=== PATIENT | female | born 1940 | race Caucasian/White ===

== ENCOUNTER 2017-08-24 14:24 | Observation (INO) ==
[2017-08-24] MEDS ORDERED: IPRATROPIUM/ALBUTEROL 3 ML AMPUL.NEB NEB ONE ×2 (14:48→18:52)
[2017-08-24 15:30] LABS: Basophils # (Auto) 0 K/mcL (0.0-0.3); Basophils % (Auto) 0.2 % (0.0-2.0); Eosinophils # (Auto) 0.3 K/mcL (0.0-0.7); Eosinophils % (Auto) 4.3 % (0.0-7.0); Lymphocytes # (Auto) 0.7 K/mcL (1.5-4.8); Lymphocytes % (Auto) 10.6 % (15.5-49.0); Mean Cell Volume 84.7 fL (80.0-100.0); Monocytes # (Auto) 0.6 K/mcL (0.1-0.9); Monocytes % (Auto) 8.9 % (1.0-12.0); Platelet Count 290 K/mcL (140-440); RBC 2.78 M/mcL (4.00-5.20); Red Cell Distribution Width 17.2 % (11.5-14.5)
[2017-08-24 15:54] LABS: proBNP 260.3 pg/ml (0-450)
[2017-08-24 15:56] LABS: ALT/SGPT 11 U/l (0-40); Albumin 3.7 gm/dL (3.2-5.2); Alkaline Phosphatase 140 U/L (39-117); Blood Urea Nitrogen 47 mg/dl (8-23)
--- NOTE | 2017-08-24 15:57 | Cat Scan Report ---
CLINICAL INFORMATION: Shortness of breath COMPARISON: Chest CT from over five years prior - 03/26/2012 TECHNIQUE: 0.625 mm axial slices were obtained from the lung apices through the bases without intravenous contrast. 2.5 mm Sagittal, coronal and axial reformatted images were processed and reviewed at bone, lung and soft tissue windows. 7 mm axial MIP images were also reconstructed to optimize pulmonary nodule detectionThe exam was performed using radiation dose optimization techniques including, but not limited to, automated exposure control, adjustment of the mA and/or kV according to patient size and use of iterative reconstruction technique. FINDINGS: Mediastinal windows show massive hiatal hernia consisting the entire stomach which has transgressed into the middle mediastinum and undergone organoaxial volvulus. There is compressive atelectasis of the adjacent medial basilar segment of the right lower lobe - new. The central pulmonary arteries are enlarged: main pulmonary diameter 3.5 centimeters. The thoracic aorta is normal in contour and caliber. There is no adenopathy in the mediastinal hilar or axillary regions. The heart is mildly enlarged pacemaker leads in satisfactory position. The thyroid is normal. Pulmonary parenchymal windows show mild chronic bronchitis changes with elevated lung volumes and slight dilatation/wall thickening the airways. Other than compressive atelectasis of the medial basilar segment right lower lobe related to the hiatal hernia, there are no infiltrates or other pulmonary abnormalities. No effusions. Bones and soft tissues the chest wall are normal Images through the abdomen show moderate pancreatic atrophy which has progressed IMPRESSION: 1. Moderate chronic bronchitis 2. Enlarged central pulmonary arteries suggesting pulmonary hypertension related to chronic bronchitis 3. Massive hiatal hernia consisting the entire stomach which is now the middle mediastinum. 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 4. Complete compressive atelectasis of the medial basilar segment right lower lobe due to the adjacent hernia 5. Moderate pancreatic atrophy - progressing Interpreted and Authenticated by: Jg Perry 08/24/17
[2017-08-24] MEDS ORDERED: 0.9 % SODIUM CHLORIDE 1,000 ML IV ONE (16:10)
[2017-08-24] MEDS ORDERED: cefTRIAXone 1 GM VIAL IV ONE (16:43)
[2017-08-24] MEDS ORDERED: methylPREDNISolone SOD SUCC 125 MG/2 ML VIAL IV ONE (16:43)
--- NOTE | 2017-08-24 17:21 | Emergency Department Note ---
General Adult HPI - General Chief complaint: Cold/Flu Symptoms Stated complaint: Flu like symptoms Time Seen by Provider: 08/24/17 14:55 Source: patient, family Mode of arrival: ambulatory Limitations: no limitations - History of Present Illness HPI Narrative: 77-year-old female cough and short of breath since 07/24/2017. 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 She initially got better and was well for about a week and now she is worse again. No nausea vomiting or diarrhea but certainly shortness of breath. She is now requiring oxygen here and she is not on home oxygen or nebulizers. She has chronic lymphedema as well as chronic kidney disease - Related Data Home Medications Medication Instructions Recorded Confirmed diltiazem CD 180 mg 180 mg PO Q24H 90 Days #90 cap 10/02/16 08/24/17 capsule,extended release 24 hr atorvastatin 10 mg tablet 10 mg PO QDAY 10/29/16 08/24/17 sennosides 8.6 mg tablet 8.6 mg PO QDAY 10/29/16 08/24/17 fluticasone 100 mcg-salmeterol 50 1 inh INHALATION BID 01/01/17 08/24/17 mcg/dose blistr powdr for inhalation torsemide 20 mg tablet See Label Instructions .ROUTE 02/19/17 08/24/17 .COMPLEX omeprazole 40 mg capsule,delayed 40 mg PO BID 30 Days #60 cap 05/03/17 08/24/17 release Acetaminophen [Acetaminophen Extra 500 mg PO HSP PRN 08/24/17 08/24/17 Strength] Previous Rx's Medication Instructions Recorded albuterol sulfate HFA 90 See Label Instructions .ROUTE 10/13/15 mcg/actuation aerosol inhaler .COMPLEX #8 g docusate sodium 100 mg capsule 100 mg PO BID #60 cap 10/02/16 ferrous sulfate ER 325 mg (65 mg 325 mg PO BID #60 cap 10/02/16 iron) capsule,extended release allopurinol 100 mg tablet 100 mg PO QDAY #90 tab 01/08/17 levothyroxine 150 mcg tablet 150 mcg PO QDAY 90 Days #90 tab 01/08/17 cyanocobalamin (vit B-12) 1,000 1,000 mcg IM QMONTH #12 ml 03/01/17 mcg/mL injection solution syringe with needle 3 mL 25 x 1 See Dose Instructions .ROUTE 03/01/17 1/2" .MEDSUPPLY #12 each Walker with Seat #1 each 06/17/17 warfarin 2.5 mg tablet 2.5 mg PO .COMPLEX #30 tab 06/19/17 warfarin 5 mg tablet 5 mg PO .COMPLEX #1 tab 07/15/17 metolazone 2.5 mg tablet 2.5 mg PO .QOD #30 tab 07/23/17 Allergies Allergy/AdvReac Type Severity Reaction Status Date / Time adhesive Allergy Unknown Blister Verified 08/24/17 13:17 Review of Systems All systems ED: reviewed and negative except as stated. Past Medical History - Past Medical History Attestation: Yes: The following information was validated with the patient. Medical history: Reports: arthritis, asthma, atrial fibrillation, CHF, COPD, CVA , DM, GERD, hypertension, osteoporosis, pulmonary embolus, renal disease, thyroid disease, other (Sleep apnea, pulmonary hypertension, gout, final stenosis) Surgical history ED: Reports: , hysterectomy, knee replacement, pacemaker/AICD - Social History smoking status: Never smoker Alcohol use: Reports: None Drug use: Reports: none Physical Exam With shortness of breath. Normocephalic atraumatic. Conjunctive are clear sclerae white and nonicteric. No nasal discharge but some audible congestion. Oropharynx is pink and moist. She is wearing nasal cannula oxygen. Neck is supple without lymphadenopathy or thyromegaly. Heart is regular rate and rhythm however she is difficult to auscultate secondary to body habitus. Lungs are basically clear to auscultation but she does have end expiratory wheeze and shortness of breath she is not speaking in full sentences. Requiring oxygen. Abdomen is soft nontender nondistended. Chronic lymphedema is present with +1- 2 bilaterally with some chronic venous stasis changes and erythema. +2 radial pulse. Alert oriented Limitations: no limitations Course Vital Signs Temperature 97.7 F 08/24/17 14:25 Pulse Rate 103 H 08/24/17 14:25 Respiratory Rate 18 08/24/17 14:25 Blood Pressure 172/64 08/24/17 14:25 Pulse Oximetry (%) 90 08/24/17 14:25 Temperature 97.4 F 08/25/17 06:52 Pulse Rate 75 08/25/17 07:54 Respiratory Rate 16 04/01/18 07:54 Blood Pressure 131/70 08/25/17 06:52 Pulse Oximetry (%) 95 08/25/17 07:54 Medical Decision Making - Medical Records Medical records reviewed: Yes I reviewed the patient's medical records. - Lab Data Lab results reviewed: Yes I reviewed the patient's lab results. Result diagrams: 08/25/17 04:17 08/25/17 04:17 Lab Results 08/24/17 08/24/17 08/24/17 Range/Units 15:00 15:00 15:00 WBC 6.2 (4.5-11.0) K/mcL RBC 2.78 L (4.00-5.20) M/mcL Hgb 7.8 L (12.0-15.0) g/dL Hct 23.5 L (36.0-48.0) % MCV 84.7 (80.0-100.0) fL MCH 28.0 (26.0-34.0) pg MCHC 33.0 (31.0-36.0) g/dL RDW 17.2 H (11.5-14.5) % Plt Count 290 (140-440) K/mcL MPV 7.1 L (7.4-10.4) fL Gran % 76.0 (38.0-78.0) % Lymph % (Auto) 10.6 L (15.5-49.0) % [place] % (Auto) 8.9 (1.0-12.0) % Eos % (Auto) 4.3 (0.0-7.0) % Baso % (Auto) 0.2 (0.0-2.0) % Gran # 4.7 (1.8-8.0) K/mcL Lymph # (Auto) 0.7 L (1.5-4.8) K/mcL [place] # (Auto) 0.6 (0.1-0.9) K/mcL Eos # (Auto) 0.3 (0.0-0.7) K/mcL Baso # (Auto) 0 (0.0-0.3) K/mcL PT (11.9-14.5) sec INR (0.9-1.1) Sodium 138 (133-145) mmol/L Potassium 3.1 L (3.3-5.1) mmol/L Chloride 92 L (96-108) mmol/L Carbon Dioxide 31 H (22-30) mmol/L Anion Gap 15.0 (8-16) BUN 47 H (8-23) mg/dl Creatinine 2.3 H (0.6-1.1) mg/dl GFR Calculation 20 Glucose 124 H (70-105) mg/dL Calcium 8.8 (8.6-10.4) mg/dl Total Bilirubin 0.2 (0.0-1.0) mg/dL AST 19 (0-37) U/l ALT 11 (0-40) U/l Alkaline Phosphatase 140 H (39-117) U/L NT-Pro-B Natriuret Pep 260.3 (0-450) pg/ml Total Protein 7.3 (5.9-8.4) gm/dL Albumin 3.7 (3.2-5.2) gm/dL Globulin 3.6 (2.2-3.7) gm/dL Albumin/Globulin Ratio 1.0 (1.0-2.3) Procalcitonin 0.11 (<0.10) ng/mL 08/24/17 Range/Units 15:00 WBC (4.5-11.0) K/mcL RBC (4.00-5.20) M/mcL Hgb (12.0-15.0) g/dL Hct (36.0-48.0) % MCV (80.0-100.0) fL MCH (26.0-34.0) pg MCHC (31.0-36.0) g/dL RDW (11.5-14.5) % Plt Count (140-440) K/mcL MPV (7.4-10.4) fL Gran % (38.0-78.0) % Lymph % (Auto) (15.5-49.0) % [place] % (Auto) (1.0-12.0) % Eos % (Auto) (0.0-7.0) % Baso % (Auto) (0.0-2.0) % Gran # (1.8-8.0) K/mcL Lymph # (Auto) (1.5-4.8) K/mcL [place] # (Auto) (0.1-0.9) K/mcL Eos # (Auto) (0.0-0.7) K/mcL Baso # (Auto) (0.0-0.3) K/mcL PT 21.2 H (11.9-14.5) sec INR 1.8 H (0.9-1.1) Sodium (133-145) mmol/L Potassium (3.3-5.1) mmol/L Chloride (96-108) mmol/L Carbon Dioxide (22-30) mmol/L Anion Gap (8-16) BUN (8-23) mg/dl Creatinine (0.6-1.1) mg/dl GFR Calculation Glucose (70-105) mg/dL Calcium (8.6-10.4) mg/dl Total Bilirubin (0.0-1.0) mg/dL AST (0-37) U/l ALT (0-40) U/l Alkaline Phosphatase (39-117) U/L NT-Pro-B Natriuret Pep (0-450) pg/ml Total Protein (5.9-8.4) gm/dL Albumin (3.2-5.2) gm/dL Globulin (2.2-3.7) gm/dL Albumin/Globulin Ratio (1.0-2.3) Procalcitonin (<0.10) ng/mL - Radiology Data Radiology results reviewed: Yes I reviewed the patient's radiology results. 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 unfortunately we could not get an ABG to evaluate her gas exchange although this was not for lack of trying by respiratory therapy. She was treated with Rocephin Solu-Medrol and DuoNeb with some modest relief of her symptoms. It is clear that she will need inpatient care for IV antibiotics steroids and [id number] breathing treatments for respiratory support along with oxygen Contacted Dr. Mak, the hospitalist, who agreed to accept patient for further care Disposition: Xfer As Inpt ([facility]) Condition: Fair
[2017-08-24] MEDS ORDERED: POTASSIUM CHLORIDE 20 MEQ TABLET PO ONE (18:42)
[2017-08-24] MEDS ORDERED: guaiFENesin/CODEINE 10 ML UDC PO PRN (18:42)
[2017-08-24] MEDS ORDERED: ALBUTEROL SULFATE 2.5 MG/3 ML NEBULIZER NEB PRN (19:00)
[2017-08-24] MEDS ORDERED: IPRATROPIUM/ALBUTEROL 3 ML AMPUL.NEB NEB SCH (19:00)
[2017-08-24] MEDS: IPRATROPIUM/ALBUTEROL 3 ML AMPUL.NEB NEB SCH (19:12)
[2017-08-24] MEDS ORDERED: ACETAMINOPHEN 500 MG TABLET PO PRN (19:41)
[2017-08-24] MEDS: PANTOPRAZOLE 40 MG VIAL IV SCH (19:41)
[2017-08-24] MEDS ORDERED: WARFARIN 2.5 MG TABLET PO SCH (19:45)
[2017-08-24] MEDS ORDERED: TORSEMIDE SCH (19:45)
[2017-08-24] MEDS ORDERED: DILTIAZEM 180 MG CAP.XL.24H PO SCH (19:45)
[2017-08-24] MEDS ORDERED: WARFARIN 5 MG TABLET PO SCH (19:45)
[2017-08-24] MEDS ORDERED: HEPARIN 5,000 UNIT/ML VIAL SQ SCH (21:00)
--- NOTE | 2017-08-24 21:05 | Internal Med History&Physical ---
Medical - H&P: [facility] Patient information: Note initiated : 08/24/17 at 8:53 pm Service Date, if different from initiated Date: [] Patient: Dania Em a 77 y/o F admitted on 08/24/17 for Flu like symptoms. History of present illness: Ms. Em is a 77 year old F, presented to the ED with SOB and URI symptoms for 2-3 weeks. She has recently finished a course with Levofloxacin and prednisone without much improvement in symptoms. She denies fever, chills, pleuritic pain. Patient has multiple medical problems, but has been doing fairly well up till recently. Her has been sick for last 6 weeks, was hospitalized at [facility] and is now at [facility]. There is no evidence of pneumonia. CT-chest showed 'massive hiatal hernia' and subsequent compressive atelectasis RLL and signs of chronic bronchitis. Patient was given Ceftriaxone and a Duoneb treatment. Oxygen sats was around 88 % and ED provider requested patient be admitted for further care. - Constitutional Constitutional: Present: fatigue. Absent: chills - Cardiovascular Cardiovascular: Present: dyspnea on exertion, leg edema, pedal edema. Absent: chest pain - Respiratory Respiratory: Present: cough, dyspnea on exertion, wheezing, chest congestion - Gastrointestinal Gastrointestinal: Present: heartburn - Genitourinary Genitourinary: Absent: urinary frequency, urinary urgency Medical - H&P: H Medical history: Medical History (Last Reviewed 07/02/17 @ 10:37 by Hilary Post MD) CVA (cerebral vascular accident) (Chronic) Spinal stenosis at L4-L5 level (Chronic) Acute bronchitis (Acute) Syncope (Acute) Bradycardia (Acute) Hyperuricemia (Acute) Shoulder pain (Acute) Long-term current use of steroids (Acute) Polymyalgia rheumatica syndrome (Ruled-out) 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) Venous stasis (Chronic) Obstructive sleep apnea syndrome (Chronic) Secondary hyperparathyroidism of renal origin (Chronic) Hypertensive renal disease (Chronic) Chronic kidney disease, stage IV (severe) (Chronic) Vitreous degeneration (Chronic) Vitamin D deficiency (Chronic) Sleep apnea (Chronic) Restless leg syndrome (Chronic) Pulmonary hypertension (Chronic) Pulmonary embolism (Chronic) Prediabetes (Chronic) Osteopenia (Chronic) Osteoarthritis (Chronic) Nuclear sclerosis (Chronic) Morbid obesity (Chronic) Hypothyroidism (Chronic) Hypertension, essential (Chronic) Hyperparathyroidism, secondary renal (Chronic) Hyperkalemia (Chronic) Gout (Chronic) Gastroesophageal reflux (Chronic) Edema (Chronic) Diastolic dysfunction (Chronic) COPD (chronic obstructive pulmonary disease) (Chronic) Kidney disease, chronic, stage III (moderate, EGFR 30-59 ml/min) (Chronic) Asthma (Chronic) Anemia (Chronic) Cellulitis (Ruled-out) Blepharitis (Inactive) Cellulitis of left arm (Inactive) Deep vein thrombosis (Inactive) skilled nursing current use of anticoagulant (Inactive) Thrombosis (Inactive) Visual disturbances (Inactive) Surgical history: Past Surgical History (Last Updated 08/07/17 @ 08:33 by Daniela Rubin) Status post total abdominal hysterectomy and bilateral salpingo-oophorectomy ( NATHANAEL-BSO) (Chronic) History of esophagogastroduodenoscopy (EGD) (Chronic 08/06/17) History of section (Inactive) History of dilation and curettage (Inactive) History of esophagogastroduodenoscopy (Inactive) History of knee replacement (Inactive) Hx of colonoscopy (Inactive) Social history: Lives with Functional capacity: independent ambulation Smoking status: Never smoker Drug use: none Alcohol use: none Medical - H&P: Meds Home Medications Medication Instructions Recorded Confirmed Type albuterol sulfate HFA 90 See Label Instructions .ROUTE 10/13/15 08/24/17 Rx mcg/actuation aerosol inhaler .COMPLEX #8 g diltiazem CD 180 mg 180 mg PO Q24H 90 Days #90 cap 10/02/16 08/24/17 History capsule,extended release 24 hr docusate sodium 100 mg capsule 100 mg PO BID #60 cap 10/02/16 08/24/17 Rx ferrous sulfate ER 325 mg (65 mg 325 mg PO BID #60 cap 10/02/16 08/24/17 Rx iron) capsule,extended release atorvastatin 10 mg tablet 10 mg PO QDAY 10/29/16 08/24/17 History sennosides 8.6 mg tablet 8.6 mg PO QDAY 10/29/16 08/24/17 History fluticasone 100 mcg-salmeterol 50 1 inh INHALATION BID 01/01/17 08/24/17 History mcg/dose blistr powdr for inhalation allopurinol 100 mg tablet 100 mg PO QDAY #90 tab 01/08/17 08/24/17 Rx levothyroxine 150 mcg tablet 150 mcg PO QDAY 90 Days #90 tab 01/08/17 08/24/17 Rx torsemide 20 mg tablet See Label Instructions .ROUTE 02/19/17 08/24/17 History .COMPLEX cyanocobalamin (vit B-12) 1,000 1,000 mcg IM QMONTH #12 ml 03/01/17 08/24/17 Rx mcg/mL injection solution syringe with needle 3 mL 25 x 1 See Dose Instructions .ROUTE 03/01/17 08/24/17 Rx 1/2" .MEDSUPPLY #12 each omeprazole 40 mg capsule,delayed 40 mg PO BID 30 Days #60 cap 05/03/17 08/24/17 History release Walker with Seat #1 each 06/17/17 08/24/17 Rx warfarin 2.5 mg tablet 2.5 mg PO .COMPLEX #30 tab 06/19/17 08/24/17 Rx warfarin 5 mg tablet 5 mg PO .COMPLEX #1 tab 07/15/17 08/24/17 Rx metolazone 2.5 mg tablet 2.5 mg PO .QOD #30 tab 07/23/17 08/24/17 Rx Acetaminophen [Acetaminophen Extra 500 mg PO HSP PRN 08/24/17 08/24/17 History Strength] Allergies Allergy/AdvReac Type Severity Reaction Status Date / Time adhesive Allergy Unknown Blister Verified 08/24/17 13:17 Medical - H&P: Exam - Constitutional Vitals: Temp Pulse Resp BP Pulse Ox 97.7 F 90 24 H 137/56 93 08/24/17 18:52 08/24/17 19:10 08/24/17 19:10 08/24/17 18:52 08/24/17 18:52 General appearance: mild distress, morbidly obese - Head Head exam: Present: normal inspection - Respiratory Respiratory exam: Present: prolonged expiratory phase, wheezes - Cardiovascular Cardiovascular exam: Present: normal rate and rhythm - GI/Abdominal GI/Abdominal exam: Present: normal bowel sounds, soft - Extremities Exam Extremities exam: Present: pedal edema Medical - H&P: Reslt - Labs CBC & Chem 7: 08/24/17 15:00 08/24/17 15:00 Labs: Short CBC 08/24/17 Range/Units 15:00 WBC 6.2 (4.5-11.0) K/mcL Hgb 7.8 L (12.0-15.0) g/dL Hct 23.5 L (36.0-48.0) % Plt Count 290 (140-440) K/mcL BMP 08/24/17 15:00 Sodium 138 Potassium 3.1 L Chloride 92 L Carbon Dioxide 31 H BUN 47 H Creatinine 2.3 H Glucose 124 H Calcium 8.8 Liver Function 08/24/17 Range/Units 15:00 Total Bilirubin 0.2 (0.0-1.0) mg/dL AST 19 (0-37) U/l ALT 11 (0-40) U/l Alkaline Phosphatase 140 H (39-117) U/L Albumin 3.7 (3.2-5.2) gm/dL Medical - H&P: A/P - Narrative A/P Narrative: 77-year-old female presented with the following problems: ACUTE: - Exacerbation of chronic bronchitis S/P course with levofloxacin and steroid taper as outpatient Patient has chronic changes on CT-chest At risk for gram neg infection, Pseudomonas aer etc. Will obtain Sputum gram stain Continue Ceftriaxone for now. Has mild wheezing and SOB. Was given IV steroids in ED. No indication to continue systemic steroids. Continue inhaled treatments. - RLL compressive atelectasis due to massive hiatal hernia. Incentive spirometry Respiratory toilet - Hypoxia Mild 88%, due to above - Hypokalemia Replace K. Monitor closely - Anemia of chronic disease Hb 7.8 Has CKD and is on coumadin. Will check stools for heme. Iron level pending CHRONIC: - Massive hiatal hernia. Has GERD and likely silent aspiration Protonix IV - Morbid Obesity - BRENNA Doesn't tolerate CPAP due to anxiety - History of thromboembolic disease, on coumadin - Chronic kidney disease On diuretics. Continue home meds for chronic condition. -
[2017-08-24] MEDS: 0.9 % SODIUM CHLORIDE 10 ML SYRINGE IV SCH (21:49)
[2017-08-24] MEDS: DOCUSATE SODIUM 100 MG CAPSULE PO SCH (21:49)
[2017-08-24] MEDS: FLUTICASONE/SALMETEROL 50/100 INHALER #14 INH SCH (21:50)
[2017-08-25] MEDS: IPRATROPIUM/ALBUTEROL 3 ML AMPUL.NEB NEB SCH ×2 (00:45→07:52)
[2017-08-25] MEDS: 0.9 % SODIUM CHLORIDE 10 ML SYRINGE IV SCH (04:39)
[2017-08-25 05:49] LABS: Basophils # (Auto) 0 K/mcL (0.0-0.3); Basophils % (Auto) 0 % (0.0-2.0); Eosinophils # (Auto) 0.1 K/mcL (0.0-0.7); Eosinophils % (Auto) 1.2 % (0.0-7.0); Granulocytes % (Auto) 93.8 % (38.0-78.0); Lymphocytes # (Auto) 0.3 K/mcL (1.5-4.8); Lymphocytes % (Auto) 4.6 % (15.5-49.0); Mean Cell Volume 83.9 fL (80.0-100.0); Mean Corpuscular HGB Conc 33.1 g/dL (31.0-36.0); Mean Corpuscular Hemoglobin 27.8 pg (26.0-34.0); Monocytes # (Auto) 0 K/mcL (0.1-0.9); Monocytes % (Auto) 0.4 % (1.0-12.0); Platelet Count 303 K/mcL (140-440); RBC 2.87 M/mcL (4.00-5.20); Red Cell Distribution Width 16.9 % (11.5-14.5)
[2017-08-25 06:11] LABS: ALT/SGPT 11 U/l (0-40); Albumin 3.6 gm/dL (3.2-5.2); Albumin/Globulin Ratio 0.9 (1.0-2.3); Alkaline Phosphatase 137 U/L (39-117); Bilirubin,Direct < 0.2 mg/dL (0.0-0.3); Blood Urea Nitrogen 44 mg/dl (8-23); Gamma Glutamyl Transpeptidase 51 U/L (5-36); Iron 16 mcg/dl (37-145); Transferrin % Saturation 5 % (15-50); Unsaturated Iron Binding 284 mcg/dL (112-346); Uric Acid 11.3 mg/dL (2.5-8.0)
[2017-08-25 06:13] LABS: Estimated Average Glucose(eAG) 114 mg/dL; Hemoglobin A1C 5.6 % HGB (4.0-6.0)
[2017-08-25] MEDS ORDERED: IRON SUCROSE COMPLEX 100 MG/5 ML VIAL IV ONE (07:29)
[2017-08-25] MEDS ORDERED: LEVOTHYROXINE 150 MCG TABLET PO SCH (07:30)
[2017-08-25] MEDS ORDERED: FERROUS SULFATE 325 MG TABLET PO SCH (08:00)
[2017-08-25] MEDS: FLUTICASONE/SALMETEROL 50/100 INHALER #14 INH SCH (08:28)
[2017-08-25] MEDS: PANTOPRAZOLE 40 MG VIAL IV SCH (08:37)
[2017-08-25] MEDS: DOCUSATE SODIUM 100 MG CAPSULE PO SCH (08:37)
[2017-08-25] MEDS ORDERED: SENNOSIDES 1 TABLET PO SCH (09:00)
[2017-08-25] MEDS ORDERED: ALLOPURINOL 100 MG TABLET PO SCH (09:00)
[2017-08-25] MEDS ORDERED: POTASSIUM CHLORIDE 20 MEQ TABLET PO ONE (09:00)
--- NOTE | 2017-08-25 12:54 | Discharge Summary ---
Medical - DS: Prov Patient information: Note initiated : 08/25/17 at 12:52 pm Service Date, if different from initiated Date: [] Patient: Dania Em 77 y/o F admitted on 08/24/17 for hypoxia and URI symptoms Date of admission: 08/24/17 18:35 Discharge date: 08/25/17 Primary care physician: Jg Zacarias Medical - DS: Meds - Discharge Medications Prescriptions: Ipratropium/Albuterol [Duoneb] 3 ml NEB Q4HP PRN #90 ampul.neb PRN Reason: Bronchospasm Potassium Chloride [Klor-Con Sprinkle] 10 meq PO DAILY #90 capsule.er Active and Home Medications: Home Medications albuterol sulfate HFA 90 mcg/actuation aerosol inhaler See Label Instructions .ROUTE .COMPLEX #8 g 10/13/15 [Rx Confirmed 08/24/17 Last Taken 08/24/17 09:00] diltiazem CD 180 mg capsule,extended release 24 hr 180 mg PO Q24H 90 Days #90 cap 10/02/16 [History Confirmed 08/24/17 Last Taken 08/24/17 09:00] docusate sodium 100 mg capsule 100 mg PO BID #60 cap 10/02/16 [Rx Confirmed Last Taken 08/24/17 09:00] ferrous sulfate ER 325 mg (65 mg iron) capsule,extended release 325 mg PO BID # 60 cap 10/02/16 [Rx Confirmed 08/24/17 Last Taken 08/23/17 21:00] atorvastatin 10 mg tablet 10 mg PO QDAY 10/29/16 [History Confirmed 08/24/17 Last Taken 08/23/17 21:00] sennosides 8.6 mg tablet 8.6 mg PO QDAY 10/29/16 [History Confirmed 08/24/17 Last Taken 08/23/17 21:00] fluticasone 100 mcg-salmeterol 50 mcg/dose blistr powdr for inhalation 1 inh INHALATION BID 01/01/17 [History Confirmed 08/24/17 Last Taken 08/24/17 09:00] allopurinol 100 mg tablet 100 mg PO QDAY #90 tab 01/08/17 [Rx Confirmed Last Taken 08/23/17 21:00] levothyroxine 150 mcg tablet 150 mcg PO QDAY 90 Days #90 tab 01/08/17 [Rx Confirmed 08/24/17 Last Taken 08/24/17 09:00] torsemide 20 mg tablet See Label Instructions .ROUTE .COMPLEX 02/19/17 [History Confirmed 08/24/17 Last Taken 08/24/17 09:00] cyanocobalamin (vit B-12) 1,000 mcg/mL injection solution 1,000 mcg IM QMONTH # 12 ml 03/01/17 [Rx Confirmed 08/24/17 Last Taken 07/25/17 18:00] syringe with needle 3 mL 25 x 1 1/2" See Dose Instructions .ROUTE .MEDSUPPLY # 12 each 03/01/17 [Rx Confirmed 08/24/17 Last Taken 07/25/17 18:00] omeprazole 40 mg capsule,delayed release 40 mg PO BID 30 Days #60 cap 05/03/17 [ History Confirmed 08/24/17 Last Taken 08/24/17 06:00] Walker with Seat #1 each 06/17/17 [Rx Confirmed 08/24/17 Last Taken 08/24/17 18: 59] warfarin 2.5 mg tablet 2.5 mg PO .COMPLEX #30 tab 06/19/17 [Rx Confirmed Last Taken 08/24/17 09:00] warfarin 5 mg tablet 5 mg PO .COMPLEX #1 tab 07/15/17 [Rx Confirmed 08/24/17 Last Taken 08/22/17 09:00] metolazone 2.5 mg tablet 2.5 mg PO .QOD #30 tab 07/23/17 [Rx Confirmed 08/24/17 Last Taken 08/24/17 09:00] Acetaminophen [Acetaminophen Extra Strength] 500 mg PO HSP PRN 08/24/17 [ History Confirmed 08/24/17 Last Taken 08/23/17 21:00 500] Medical - DS: Hosp Hospital course: History of present illness: Ms. Em is a 77 year old F, presented to the ED with SOB and URI symptoms for 2-3 weeks. She has recently finished a course with Levofloxacin and prednisone without much improvement in symptoms. She denies fever, chills, pleuritic pain. Patient has multiple medical problems, but has been doing fairly well up till recently. Her has been sick for last 6 weeks, was hospitalized at [facility] and is now at [facility]. There is no evidence of pneumonia. CT-chest showed 'massive hiatal hernia' and subsequent compressive atelectasis RLL and signs of chronic bronchitis. Patient was given Ceftriaxone and a Duoneb treatment. Oxygen sats was around 88 % and ED provider requested patient be admitted for further care. Hospital course: Admitted for exacerbation of chronic bronchitis a/w mild hypoxia. Patient was started on Ceftriaxone IX and nebulized treatments. She was also encouraged to do incentive spirometry for the RLL atelectasis due to compression secondary due to massive hiatal hernia. This am labs showed K of 3.4 and she was given K supplementation. Fe level was 16 with Hb 8.0. She received a dose of Fe sucrose IV, which was well tolerated. This morning O2 sats on RA was well above 90%. Although still coughing, she was feeling well enough to go home. She will be discharged home with same home meds. Added: nebulizer and Duonebs to take prn if inhalers are inadequate, and also K 10 meq daily for hypokalemia. Discharge diagnosis: Exacerbation of chronic bronchitis, hypoxia Secondary discharge diagnosis: Chronic bronchitis Chronic compressive atelectasis of RLL due to massive hiatal hernia Fe-iron deficiency anemia Chronic renal disease Morbid obesity BRENNA Reason for admission: SOB Complications: None - Time Spent with Patient Total time spent providing and/or coordinating discharge services: Less than 30 minutes Medical - DS: Exam - Constitutional Vitals: Vital Signs Temp Pulse Pulse Resp BP BP BP 08/25/17 12:00 98.1 F 72 20 145/70 08/25/17 07:54 75 16 08/25/17 07:31 08/25/17 06:52 97.4 F 83 24 H 131/70 08/25/17 05:48 08/25/17 04:00 97.8 F 88 20 115/62 08/25/17 00:00 98.1 F 88 20 128/54 08/24/17 23:04 16 08/24/17 20:00 98.4 F 87 22 137/66 08/24/17 19:10 90 24 H 08/24/17 18:52 97.7 F 92 H 22 137/56 08/24/17 18:35 98.4 F 87 22 137/66 08/24/17 18:16 92 H 22 137/56 08/24/17 18:00 90 15 142/116 08/24/17 17:46 104 H 17 141/119 08/24/17 17:31 89 23 H 158/54 08/24/17 17:17 91 H 19 140/44 08/24/17 17:02 93 H 21 140/61 08/24/17 16:47 94 H 21 140/60 08/24/17 16:32 97 H 15 153/44 08/24/17 16:17 95 H 21 131/97 08/24/17 16:02 91 H 19 162/53 08/24/17 15:58 105 H 22 138/101 08/24/17 15:02 89 141/40 08/24/17 14:54 90 20 08/24/17 14:47 99 H 146/65 08/24/17 14:44 89 161/62 08/24/17 14:25 97.7 F 103 H 18 172/64 Pulse Ox 08/25/17 12:00 94 08/25/17 07:54 95 08/25/17 07:31 93 08/25/17 06:52 93 08/25/17 05:48 93 08/25/17 04:00 95 08/25/17 00:00 93 08/24/17 23:04 93 08/24/17 20:00 91 08/24/17 19:10 08/24/17 18:52 93 08/24/17 18:35 91 08/24/17 18:16 93 08/24/17 18:00 94 08/24/17 17:46 93 08/24/17 17:31 92 08/24/17 17:17 92 08/24/17 17:02 93 08/24/17 16:47 88 L 08/24/17 16:32 90 08/24/17 16:17 95 08/24/17 16:02 95 08/24/17 15:58 93 08/24/17 15:02 100 08/24/17 14:54 08/24/17 14:47 96 08/24/17 14:44 98 08/24/17 14:25 90 Intake and Output 08/24/17 08/25/17 08/25/17 21:59 05:59 13:59 Intake Total 1240 / 1240 600 / 600 Output Total 350 / 350 Balance 890 / 890 600 / 600 Intake: IV 1000 / 1000 Sodium Chloride 0.9% 1,000 ml @ 1000 / 1000 Wide Open IV BOLUS ONE Rx#: [id number] Oral 240 / 240 600 / 600 Output: Void Amount 350 / 350 Other: Meal chicken noodle soup and jello Percent of Meal Consumed 100% Feeding Ability Independent # Voids 1 1 1 Weight 263 lb General appearance: morbidly obese Additional comments: Dyspnea on exertion - Respiratory Respiratory exam: Present: wheezes - Cardiovascular Cardiovascular exam: Present: normal rate and rhythm - GI/Abdominal GI/Abdominal exam: Present: normal bowel sounds - Extremities Exam Extremities exam: Present: pedal edema Medical - DS: Data Labs on day of discharge: Labs from last 24 hours 08/25/17 08/25/17 08/25/17 07:41 04:17 04:17 WBC 5.9 RBC 2.87 L Hgb 8.0 L Hct 24.1 L MCV 83.9 MCH 27.8 MCHC 33.1 RDW 16.9 H Plt Count 303 MPV 7.9 Gran % 93.8 H Lymph % (Auto) 4.6 L [place] % (Auto) 0.4 L Eos % (Auto) 1.2 Baso % (Auto) 0 Gran # 5.5 Lymph # (Auto) 0.3 L [place] # (Auto) 0 L Eos # (Auto) 0.1 Baso # (Auto) 0 PT 21.6 H INR 1.9 H Sodium 138 Potassium 3.5 Chloride 93 L Carbon Dioxide 29 Anion Gap 16.0 BUN 44 H Creatinine 2.1 H GFR Calculation 22 Glucose 218 H Hemoglobin A1c 5.6 Estim Average Glucose 114 Uric Acid 11.3 H Calcium 8.7 Phosphorus 3.4 Magnesium 1.5 L Iron 16 L TIBC 300 Unsat Iron Binding 284 Transferrin % Sat 5 L Total Bilirubin 0.2 Direct Bilirubin < 0.2 GGT 51 H AST 18 ALT 11 Alkaline Phosphatase 137 H Lactate Dehydrogenase 253 H NT-Pro-B Natriuret Pep Total Protein 7.5 Albumin 3.6 Globulin 3.9 H Albumin/Globulin Ratio 0.9 L Triglycerides 96 Procalcitonin 08/24/17 08/24/17 08/24/17 15:00 15:00 15:00 WBC 6.2 RBC 2.78 L Hgb 7.8 L Hct 23.5 L MCV 84.7 MCH 28.0 MCHC 33.0 RDW 17.2 H Plt Count 290 MPV 7.1 L Gran % 76.0 Lymph % (Auto) 10.6 L [place] % (Auto) 8.9 Eos % (Auto) 4.3 Baso % (Auto) 0.2 Gran # 4.7 Lymph # (Auto) 0.7 L [place] # (Auto) 0.6 Eos # (Auto) 0.3 Baso # (Auto) 0 PT 21.2 H INR 1.8 H Sodium 138 Potassium 3.1 L Chloride 92 L Carbon Dioxide 31 H Anion Gap 15.0 BUN 47 H Creatinine 2.3 H GFR Calculation 20 Glucose 124 H Hemoglobin A1c Estim Average Glucose Uric Acid Calcium 8.8 Phosphorus Magnesium Iron TIBC Unsat Iron Binding Transferrin % Sat Total Bilirubin 0.2 Direct Bilirubin GGT AST 19 ALT 11 Alkaline Phosphatase 140 H Lactate Dehydrogenase NT-Pro-B Natriuret Pep 260.3 Total Protein 7.3 Albumin 3.7 Globulin 3.6 Albumin/Globulin Ratio 1.0 Triglycerides Procalcitonin 08/24/17 15:00 WBC RBC Hgb Hct MCV MCH MCHC RDW Plt Count MPV Gran % Lymph % (Auto) [place] % (Auto) Eos % (Auto) Baso % (Auto) Gran # Lymph # (Auto) [place] # (Auto) Eos # (Auto) Baso # (Auto) PT INR Sodium Potassium Chloride Carbon Dioxide Anion Gap BUN Creatinine GFR Calculation Glucose Hemoglobin A1c Estim Average Glucose Uric Acid Calcium Phosphorus Magnesium Iron TIBC Unsat Iron Binding Transferrin % Sat Total Bilirubin Direct Bilirubin GGT AST ALT Alkaline Phosphatase Lactate Dehydrogenase NT-Pro-B Natriuret Pep Total Protein Albumin Globulin Albumin/Globulin Ratio Triglycerides Procalcitonin 0.11 CT-CHEST WO CONTRAST: IMPRESSION: 1. Moderate chronic bronchitis 2. Enlarged central pulmonary arteries suggesting pulmonary hypertension related to chronic bronchitis 3. Massive hiatal hernia consisting the entire stomach which is now the middle mediastinum. 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 4. Complete compressive atelectasis of the medial basilar segment right lower lobe due to the adjacent hernia 5. Moderate pancreatic atrophy - progressing Medical - DS: A/P - Patient/Caregiver Discharge Instructions Activity: increase activity as tolerated Diet: Cardiac Additional Instructions: Incentive spirometry 3-4 times daily for RLL collapse Take Duoneb via nebulizer if inhalers are infective, or with worsening SOB Recheck renal function in about one week for hypokalemia - Follow up Plan Follow up with: Jg Zacarias DO [Primary Care Provider] - Disposition: Home, Self-Care Prognosis: Fair Rehab Potential: Fair Overall status at discharge: patient is progressing back to baseline Medical - DS: Qual - VTE Deep Vein Thrombosis/Pulmonary Embolism Present on Admission: No
[2017-08-25] MEDS ORDERED: WARFARIN 5 MG TABLET PO ONE (14:00)
[2017-08-25] MEDS ORDERED: ATORVASTATIN 20 MG TABLET PO SCH (21:00)
[2017-08-26] MEDS ORDERED: METOLAZONE 2.5 MG TABLET PO SCH (08:30)
== END 2017-08-25 14:00 | disposition home or self-care (01) ==
LOC: ED 14:24 → MEDSUR 14:24
PROVIDERS: ADMIT Specialist; ATTEND Specialist

== ENCOUNTER 2018-05-29 18:11 | Inpatient (IN) ==
[2018-05-29] MEDS ORDERED: LACTATED RINGERS 1,000 ML IV ONE (18:21)
[2018-05-29] MEDS ORDERED: IPRATROPIUM/ALBUTEROL 3 ML AMPUL.NEB NEB ONE ×2 (18:38→23:19)
[2018-05-29] MEDS ORDERED: methylPREDNISolone SOD SUCC 125 MG/2 ML VIAL IV ONE (18:39)
[2018-05-29] MEDS ORDERED: OSELTAMIVIR PHOSPHATE 75 MG CAPSULE PO ONE (18:39)
--- NOTE | 2018-05-29 18:42 | Emergency Department Note ---
SOB HPI - General Chief Complaint: Shortness of Breath/Dyspnea Stated Complaint: sob, cough, weakness, fever Time Seen by Provider: 05/29/18 18:38 Source: patient Mode of arrival: ambulatory Limitations: no limitations - History of Present Illness History of chronic cough, history of asthmatic bronchitis, reactive airway disease however yesterday started acutely with a cough that was different. It turns out her daughter has had flulike symptoms since New Year's Phyllis. Daughter also currently sick with a cough. She tested positive for influenza a on arrival to the ED. EMS was called, she was weak, hypoxic, oximetry 88% on room air. Denies abdominal pain, denies nausea vomiting or diarrhea. - Related Data Home Medications Medication Instructions Recorded Confirmed sennosides 8.6 mg tablet 8.6 mg PO QDAY 10/29/16 03/27/18 omeprazole 40 mg capsule,delayed 40 mg PO BID 30 Days #60 cap 05/03/17 03/27/18 release Acetaminophen [Acetaminophen Extra 500 mg PO HSP PRN 08/24/17 03/27/18 Strength] fluticasone 110 mcg/actuation HFA 2 puff INHALATION BID 09/03/17 03/27/18 aerosol inhaler diltiazem CD 180 mg 90 mg PO Q24H 90 Days #45 cap 02/28/18 03/27/18 capsule,extended release 24 hr darbepoetin fatou 100 mcg/mL in 100 mcg SUB-Q Q2W PRN ml 05/05/18 05/05/18 polysorbate injection Previous Rx's Medication Instructions Recorded albuterol sulfate HFA 90 See Label Instructions .ROUTE 10/13/15 mcg/actuation aerosol inhaler .COMPLEX #8 g docusate sodium 100 mg capsule 100 mg PO BID #60 cap 10/02/16 Walker with Seat #1 each 06/17/17 warfarin 2.5 mg tablet 2.5 mg PO .COMPLEX #30 tab 06/19/17 Atorvastatin [Lipitor] 10 mg PO HS tab 08/25/17 Ferrous Sulfate 325 mg PO BIDCC tab 08/25/17 Ipratropium/Albuterol [Duoneb] 3 ml NEB Q4HP PRN #90 ampul.neb 08/25/17 Potassium Chloride [Klor-Con 10 meq PO DAILY #90 capsule.er 08/25/17 Sprinkle] gabapentin 100 mg capsule 100 mg PO QHS #30 cap 09/30/17 warfarin 5 mg tablet 5 mg PO QDAY #30 tab 12/16/17 levothyroxine 150 mcg tablet 150 mcg PO QDAY 90 Days #90 tab 12/30/17 cyanocobalamin (vit B-12) 1,000 1,000 mcg IM QMONTH #12 ml 02/25/18 mcg/mL injection solution syringe with needle 3 mL 25 x 1 See Dose Instructions .ROUTE 02/25/18 1/2" .MEDSUPPLY #12 each hydrocodone 5 mg-acetaminophen 325 1 tab PO Q6H PRN #90 tab 03/27/18 mg tablet allopurinol 100 mg tablet 100 mg PO QDAY #90 tab 04/01/18 torsemide 20 mg tablet 40 mg PO BID 90 Days #360 tab 04/14/18 metolazone 2.5 mg tablet 2.5 mg PO .QOD #30 tab 05/19/18 iron sucrose 200 mg iron/10 mL 200 mg IV QWEEK #50 ml 05/29/18 intravenous solution Allergies Allergy/AdvReac Type Severity Reaction Status Date / Time adhesive Allergy Unknown Blister Verified 03/27/18 09:55 Review of Systems Constitutional: Reports: fever, chills ENT ED: Denies: ear pain, throat pain Cardiovascular: Reports: palpitations, dyspnea on exertion, orthopnea. Denies: chest pain Respiratory: Reports: shortness of breath, cough, wheezes, phlegm Gastrointestinal: Denies: abdominal pain, nausea Genitourinary: Denies: dysuria, urgency Past Medical History - Past Medical History Source: old records reviewed, nursing notes reviewed Medical history: Reports: arthritis, asthma, atrial fibrillation, CHF, COPD, CVA , DM, GERD, hypertension, osteoporosis, pulmonary embolus, renal disease, thyroid disease, other (Sleep apnea, pulmonary hypertension, gout, final stenosis) Surgical history ED: Reports: , hysterectomy, knee replacement, pacemaker/AICD Family history: Reports: no significant family history - Social History smoking status: Never smoker Exposure to secondhand smoke: Yes Alcohol use: Reports: None Drug use: Reports: none Physical Exam Limitations: no limitations General appearance: alert, in distress Head: atraumatic, normocephalic, normal inspection Eye: Present: normal appearance, PERRL, EOMI. Absent: scleral icterus, conjunctival injection, nystagmus, miosis (constriction) ENT: normal exam, normal oropharynx, mucous membranes moist, TM's normal bilaterally Neck: Present: normal inspection, full ROM, trachea midline. Absent: tenderness , meningismus, lymphadenopathy, thyromegaly Chest: Present: normal inspection, symmetric chest wall rise. Absent: tenderness, rash Respiratory: Present: respiratory distress, wheezes, accessory muscle use, prolonged expiratory phase Cardiovascular: Present: irregular rhythm, normal heart sounds Abdominal: Present: soft, normal bowel sounds. Absent: distention, tenderness, guarding Rectal: Present: deferred, other (the entire perineum is erythematous, she also has several large fissures in the sacral area. With associated erythema.) External: Present: erythema. Absent: lesions, ecchymosis Extremities: Present: normal inspection, full ROM Back: Present: normal inspection. Absent: CVA tenderness (R), CVA tenderness (L ) Neurological: Present: alert, oriented X3, CN II-XII intact. Absent: motor sensory deficit Psychiatric: Present: normal affect Skin: Present: warm, dry, intact, rash, other (skin slipto the right elbow region.). Absent: cyanosis Course Vital Signs Temperature 100.1 F H 05/29/18 18:11 Pulse Rate 101 H 05/29/18 18:11 Blood Pressure 166/69 05/29/18 18:11 Pulse Oximetry (%) 92 05/29/18 18:11 Temperature 100.1 F H 05/29/18 18:11 Pulse Rate 93 H 05/29/18 21:23 Respiratory Rate 21 05/29/18 21:23 Blood Pressure 152/64 05/29/18 21:23 Pulse Oximetry (%) 94 05/29/18 21:23 Shortness of Breath/Dyspnea - [facility] Narrative Medical decision making narrative: Impression is influenza. Patient was started on Tamiflu, antipyretics as a precaution, was given Solu-Medrol for her wheezing. Discussed with Dr. Rai - Lab Data Result diagrams: 05/29/18 18:40 05/29/18 18:40 Lab Results 05/29/18 05/29/18 05/29/18 Range/Units 18:40 18:40 18:40 WBC (4.5-11.0) K/mcL RBC (4.00-5.20) M/mcL Hgb (12.0-15.0) g/dL Hct (36.0-48.0) % MCV (80.0-100.0) fL MCH (26.0-34.0) pg MCHC (31.0-36.0) g/dL RDW (11.5-14.5) % Plt Count (140-440) K/mcL MPV (7.4-10.4) fL Total Counted Seg Neutrophils % (38-78) % Band Neutrophils % (0-10) % Lymphocytes % (15-49) % Monocytes % (Manual) (1-12) % Basophils % (Manual) (0-2) % Platelet Estimate (NORMAL) RBC Morphology (NORMAL) Anisocytosis (NONE SEEN) VBG Lactic Acid 1.4 (0.5-2.0) mmol/L Sodium 137 (133-145) mmol/L Potassium 3.4 (3.3-5.1) mmol/L Chloride 95 L (96-108) mmol/L Carbon Dioxide 26 (22-30) mmol/L Anion Gap 16.0 (8-16) BUN 63 H (8-23) mg/dl Creatinine 2.3 H (0.6-1.1) mg/dl GFR Calculation 20 Glucose 112 H (70-105) mg/dL Calcium 8.6 (8.6-10.4) mg/dl Total Bilirubin 0.2 (0.0-1.0) mg/dL AST 18 (0-37) U/l ALT 10 (0-40) U/l Alkaline Phosphatase 129 H (39-117) U/L Total Protein 7.5 (5.9-8.4) gm/dL Albumin 3.6 (3.2-5.2) gm/dL Globulin 3.9 H (2.2-3.7) gm/dL Albumin/Globulin Ratio 0.9 L (1.0-2.3) Procalcitonin < 0.10 (<0.10) ng/mL Urine Color Urine Appearance Urine pH (5.0-9.0) Ur Specific [place] (1.000-1.035) Urine Protein (NEG) mg/dL Urine Glucose (UA) (NEG) mg/dL Urine Ketones (NEG) mg/dL Urine Occult Blood (<0.03) mg/dL Urine Nitrate (NEG) Urine Bilirubin (NEG) mg/dL Urine Urobilinogen (NEG) mg/dL Ur Leukocyte Esterase (NEG) /uL Urine RBC (0-1) /hpf Urine WBC (0-4) /hpf Ur Squamous Epith Cells (0-4) /hpf Urine Bacteria (0) /hpf Hyaline Casts (0-2) /lpf Ur Culture Indicated? 05/29/18 05/29/18 Range/Units 18:40 18:57 WBC 6.5 (4.5-11.0) K/mcL RBC 2.70 L (4.00-5.20) M/mcL Hgb 7.8 L (12.0-15.0) g/dL Hct 24.0 L (36.0-48.0) % MCV 89.1 (80.0-100.0) fL MCH 28.8 (26.0-34.0) pg MCHC 32.3 (31.0-36.0) g/dL RDW 17.0 H (11.5-14.5) % Plt Count 244 (140-440) K/mcL MPV 7.8 (7.4-10.4) fL Total Counted 100 Seg Neutrophils % 78 (38-78) % Band Neutrophils % 2 (0-10) % Lymphocytes % 5 L (15-49) % Monocytes % (Manual) 14 H (1-12) % Basophils % (Manual) 1 (0-2) % Platelet Estimate Normal (NORMAL) RBC Morphology Abnorm A (NORMAL) Anisocytosis 1+ A (NONE SEEN) VBG Lactic Acid (0.5-2.0) mmol/L Sodium (133-145) mmol/L Potassium (3.3-5.1) mmol/L Chloride (96-108) mmol/L Carbon Dioxide (22-30) mmol/L Anion Gap (8-16) BUN (8-23) mg/dl Creatinine (0.6-1.1) mg/dl GFR Calculation Glucose (70-105) mg/dL Calcium (8.6-10.4) mg/dl Total Bilirubin (0.0-1.0) mg/dL AST (0-37) U/l ALT (0-40) U/l Alkaline Phosphatase (39-117) U/L Total Protein (5.9-8.4) gm/dL Albumin (3.2-5.2) gm/dL Globulin (2.2-3.7) gm/dL Albumin/Globulin Ratio (1.0-2.3) Procalcitonin (<0.10) ng/mL Urine Color Yellow Urine Appearance Clear Urine pH 6.0 (5.0-9.0) Ur Specific [place] 1.013 (1.000-1.035) Urine Protein 30 A (NEG) mg/dL Urine Glucose (UA) Negative (NEG) mg/dL Urine Ketones Neg (NEG) mg/dL Urine Occult Blood Neg (<0.03) mg/dL Urine Nitrate Neg (NEG) Urine Bilirubin Neg (NEG) mg/dL Urine Urobilinogen Neg (NEG) mg/dL Ur Leukocyte Esterase Neg (NEG) /uL Urine RBC 0 (0-1) /hpf Urine WBC < 1 (0-4) /hpf Ur Squamous Epith Cells < 1 (0-4) /hpf Urine Bacteria 0 (0) /hpf Hyaline Casts 1 (0-2) /lpf Ur Culture Indicated? No Disposition Pt seen by [facility]OR/PA only: No Clinical Impression: Asthma with exacerbation, Bronchitis, Influenza A Disposition: Xfer As Inpt ([facility]) Referrals: Jg Zacarias DO [Primary Care Provider] -
[2018-05-29] MEDS ORDERED: FLUCONAZOLE 150 MG TABLET PO ONE (18:44)
--- NOTE | 2018-05-29 19:06 | XRay Report ---
HISTORY: Flu symptoms and cough FINDINGS: The lungs are clear. There is a large retrocardiac hiatus hernia. The heart size is upper limits of normal. No congestive heart failure is present. There is a dual-chamber pacemaker. No pleural effusion is present. The hiatus hernia is unchanged since the prior chest CT done on 08/24/17. IMPRESSION: No evidence of pneumonia Stable large hiatus hernia Interpreted and Authenticated by: Samuel Moe 05/29/18
[2018-05-29] MEDS ORDERED: LEVOFLOXACIN 500 MG/100 ML BAG IV ONE (19:52)
[2018-05-29 20:08] LABS: Mean Cell Volume 89.1 fL (80.0-100.0); Mean Corpuscular HGB Conc 32.3 g/dL (31.0-36.0); Platelet Count 244 K/mcL (140-440)
[2018-05-29 20:16] LABS: Appearance,Urine CLEAR; Bacteria,Urine 0 /hpf (0); Bilirubin,Urine NEG (NEG); Color,Urine YELLOW; Glucose,Urine (UA) NEGATIVE (NEG); Leukocyte Esterase,Urine NEG /uL (NEG); Protein,Urine 30 mg/dL (NEG); Specific Gravity,Urine 1.013 (1.000-1.035); Urine Blood NEG mg/dL (<0.03); Urine Hyaline Cast 1 /lpf (0-2); Urine RBC 0 /hpf (0-1); Urine Squamous Epithelial Cell < 1 /hpf (0-4); Urine WBC < 1 /hpf (0-4); Urobilinogen,Urine NEG (NEG)
[2018-05-29 20:26] LABS: Anisocytosis 1+ (NONE SEEN); Band Neutrophils % 2 % (0-10); Basophils % (Manual) 1 % (0-2); Lymphocytes % 5 % (15-49); Monocytes % (Manual) 14 % (1-12); Platelet Estimate NORMAL (NORMAL); RBC Morphology ABNORM (NORMAL); Segmented Neutrophils % 78 % (38-78)
[2018-05-29 20:39] LABS: ALT/SGPT 10 U/l (0-40); Albumin 3.6 gm/dL (3.2-5.2); Albumin/Globulin Ratio 0.9 (1.0-2.3); Alkaline Phosphatase 129 U/L (39-117); Blood Urea Nitrogen 63 mg/dl (8-23)
--- NOTE | 2018-05-29 22:02 | Internal Med History&Physical ---
Medical - H&P: [facility] Patient information: Note initiated : 05/29/18 at 9:57 pm Service Date, if different from initiated Date: [] Patient: Dania Em a 78 y/o F admitted on for sob, cough, weakness, fever. Chief Complaint: [] History of present illness: Ms. Em is a 78 year old F Presents with shortness of breath and cough. Patient states yesterday morning when she woke up she noticed that she was short of breath and weak. And later on developed worsening cough. She does have a cough at baseline but is progressively worse over the past 24 hours. She also has chronic wheezing but that is worse as well. She is does not require any oxygen at home. Been so weak that she fell. She has a history of history of asthmatic bronchitis and is told that she has chronic bronchitis. She has a chills and some nausea. Her daughter had flulike symptoms since New Year's and was found to have influenza A. In the ER patient was found to be hypoxic at 88% on room air rapid flu test showed that she was positive for influenza A. She received 3 DuoNeb treatments with improvement in her distress she is more comfortable now and is on 2-3 L nasal cannula. Review of Systems: Pertinent positives as above. denies headache/fever/vomiting/chest or abdominal pain/diarrhea. 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) Venous stasis (Chronic) Obstructive sleep apnea syndrome (Chronic) Secondary hyperparathyroidism of renal origin (Chronic) Hypertensive renal disease (Chronic) Chronic kidney disease, stage IV (severe) (Chronic) Vitreous degeneration (Chronic) Vitamin D deficiency (Chronic) Sleep apnea (Chronic) Restless leg syndrome (Chronic) Pulmonary hypertension (Chronic) Pulmonary embolism (Chronic) Prediabetes (Chronic) Osteopenia (Chronic) Osteoarthritis (Chronic) Nuclear sclerosis (Chronic) Morbid obesity (Chronic) Hypothyroidism (Chronic) Hypertension, essential (Chronic) Hyperparathyroidism, secondary renal (Chronic) Hyperkalemia (Chronic) Gout (Chronic) Gastroesophageal reflux (Chronic) Edema (Chronic) Diastolic dysfunction (Chronic) COPD (chronic obstructive pulmonary disease) (Chronic) Kidney disease, chronic, stage III (moderate, EGFR 30-59 ml/min) (Chronic) Asthma (Chronic) Anemia (Chronic) Cellulitis (Ruled-out) Blepharitis (Inactive) Cellulitis of left arm (Inactive) Deep vein thrombosis (Inactive) 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) Thrombosis (Inactive) Visual disturbances (Inactive) Past Surgical History (Last Reviewed 03/27/18 @ 16:18 by Jg Zacarias DO) Status post total abdominal hysterectomy and bilateral salpingo-oophorectomy ( NATHANAEL-BSO) (Chronic) History of esophagogastroduodenoscopy (EGD) (Chronic 08/06/17) History of section (Inactive) History of dilation and curettage (Inactive) History of esophagogastroduodenoscopy (Inactive) History of knee replacement (Inactive) Hx of colonoscopy (Inactive) Family History (Last Reviewed 03/27/18 @ 16:18 by Jg Zacarias DO) Unknown Diabetes mellitus Glaucoma Cardiac disease Essential hypertension Social History (Last Updated 03/27/18 @ 16:18 by Jg Zacarias DO) Does not smoke but was exposed to secondhand smoke denies alcohol use ambulate with walker lives with her daughter. Medical - H&P: Meds Home Medications Medication Instructions Recorded Confirmed Type albuterol sulfate HFA 90 See Label Instructions .ROUTE 10/13/15 03/27/18 Rx mcg/actuation aerosol inhaler .COMPLEX #8 g docusate sodium 100 mg capsule 100 mg PO BID #60 cap 10/02/16 03/27/18 Rx sennosides 8.6 mg tablet 8.6 mg PO QDAY 10/29/16 03/27/18 History omeprazole 40 mg capsule,delayed 40 mg PO BID 30 Days #60 cap 05/03/17 03/27/18 History release Walker with Seat #1 each 06/17/17 03/27/18 Rx warfarin 2.5 mg tablet 2.5 mg PO .COMPLEX #30 tab 06/19/17 03/27/18 Rx Acetaminophen [Acetaminophen Extra 500 mg PO HSP PRN 08/24/17 03/27/18 History Strength] Atorvastatin [Lipitor] 10 mg PO HS tab 08/25/17 03/27/18 Rx Ferrous Sulfate 325 mg PO BIDCC tab 08/25/17 03/27/18 Rx Ipratropium/Albuterol [Duoneb] 3 ml NEB Q4HP PRN #90 ampul.neb 08/25/17 Rx Potassium Chloride [Klor-Con 10 meq PO DAILY #90 capsule.er 08/25/17 03/27/18 Rx Sprinkle] fluticasone 110 mcg/actuation HFA 2 puff INHALATION BID 09/03/17 03/27/18 History aerosol inhaler gabapentin 100 mg capsule 100 mg PO QHS #30 cap 09/30/17 03/27/18 Rx warfarin 5 mg tablet 5 mg PO QDAY #30 tab 12/16/17 03/27/18 Rx levothyroxine 150 mcg tablet 150 mcg PO QDAY 90 Days #90 tab 12/30/17 03/27/18 Rx cyanocobalamin (vit B-12) 1,000 1,000 mcg IM QMONTH #12 ml 02/25/18 03/27/18 Rx mcg/mL injection solution syringe with needle 3 mL 25 x 1 See Dose Instructions .ROUTE 02/25/18 03/27/18 Rx 1/2" .MEDSUPPLY #12 each diltiazem CD 180 mg 90 mg PO Q24H 90 Days #45 cap 02/28/18 03/27/18 History capsule,extended release 24 hr hydrocodone 5 mg-acetaminophen 325 1 tab PO Q6H PRN #90 tab 03/27/18 03/27/18 Rx mg tablet allopurinol 100 mg tablet 100 mg PO QDAY #90 tab 04/01/18 Rx torsemide 20 mg tablet 40 mg PO BID 90 Days #360 tab 04/14/18 Rx darbepoetin fatou 100 mcg/mL in 100 mcg SUB-Q Q2W PRN ml 05/05/18 05/05/18 History polysorbate injection metolazone 2.5 mg tablet 2.5 mg PO .QOD #30 tab 05/19/18 Rx iron sucrose 200 mg iron/10 mL 200 mg IV QWEEK #50 ml 05/29/18 Rx intravenous solution Allergies Allergy/AdvReac Type Severity Reaction Status Date / Time adhesive Allergy Unknown Blister Verified 03/27/18 09:55 Medical - H&P: Exam - Constitutional Vitals: Temp Pulse Resp BP Pulse Ox 100.1 F H 93 H 21 152/64 94 05/29/18 18:11 05/29/18 21:23 05/29/18 21:23 05/29/18 21:23 05/29/18 21:23 Exam: General: Alert, Awake, No acute Distress, obese Eyes/N/T: EOMI, PEERL, DMM Head/Neck: neck supple, normocephalic atraumatic CV: RRR, No murmurs, normal s1/s2 Pulm: b/l rhonchi and wheezing Abd: soft, nontender, +BS x4 Ext: no clubbing/cyanosis, 2+ chronic b/l LE edema Neuro: Alert, no focal deficits, moves all extremities, CN 2-12 grossly intact, sensations intact b/l upper/lower Skin: warm/dry Medical - H&P: Reslt - Labs CBC & Chem 7: 05/29/18 18:40 05/29/18 18:40 Labs: Short CBC 05/29/18 Range/Units 18:40 WBC 6.5 (4.5-11.0) K/mcL Hgb 7.8 L (12.0-15.0) g/dL Hct 24.0 L (36.0-48.0) % Plt Count 244 (140-440) K/mcL BMP 05/29/18 18:40 Sodium 137 Potassium 3.4 Chloride 95 L Carbon Dioxide 26 BUN 63 H Creatinine 2.3 H Glucose 112 H Calcium 8.6 Liver Function 05/29/18 Range/Units 18:40 Total Bilirubin 0.2 (0.0-1.0) mg/dL AST 18 (0-37) U/l ALT 10 (0-40) U/l Alkaline Phosphatase 129 H (39-117) U/L Albumin 3.6 (3.2-5.2) gm/dL Urine 05/29/18 Range/Units 18:57 Urine Color Yellow Urine Appearance Clear Urine pH 6.0 (5.0-9.0) Ur Specific [place] 1.013 (1.000-1.035) Urine Protein 30 A (NEG) mg/dL Urine Glucose (UA) Negative (NEG) mg/dL - Impressions Chest x-ray no acute process Medical - H&P: A/P - Narrative A/P Narrative: A: *Asthma exacerbation: Secondary to influenza A *Acute hypoxic respiratory failure: *Influenza A: *CKD IV: follows with Sejal *Anemia chronic: Receives Epo *History of chronic atrial fibrillation(PPM): On warfarin and diltiazem *BRENNA: But is noncompliant with CPAP *H/o CVA w/residual right upper extremity weakness and minors speech deficit *Chronic pain *Hypothyroidism *GERD *Obesity * P: -prn/moiz nebs, RT -lower dose corticosteroids given the setting of influenza (wean as soon as able ), but with asthmatic bronchitis -IS/Acapella -Empiric Abx -home CPAP -O2 supp -pt/ot - -ppx: warfarin per pharm/pepcid
[2018-05-29] MEDS ORDERED: METOPROLOL TARTRATE 5 MG/5 ML VIAL IV PRN (22:37)
[2018-05-29] MEDS ORDERED: BISACODYL 5 MG TABLET PO PRN (22:37)
[2018-05-29] MEDS ORDERED: ONDANSETRON 4 MG/2 ML VIAL IV PRN (22:37)
[2018-05-29] MEDS ORDERED: ACETAMINOPHEN 325 MG TABLET PO PRN (22:37)
[2018-05-29] MEDS ORDERED: IPRATROPIUM/ALBUTEROL 3 ML AMPUL.NEB NEB PRN (22:37)
[2018-05-29] MEDS ORDERED: PROMETHAZINE 25 MG TABLET PO PRN (22:37)
[2018-05-29] MEDS ORDERED: AZITHROMYCIN 500 MG in DEXTROSE 5% IN WATER 250 ML IV SCH (22:37)
[2018-05-29] MEDS ORDERED: cefTRIAXone 1 GM in DEXTROSE 5% IN WATER 50 ML IV SCH (22:37)
[2018-05-29] MEDS ORDERED: cefTRIAXone 1 GM VIAL ONE (22:47)
[2018-05-29] MEDS ORDERED: HYDROcodone/APAP 5/325MG TABLET PO PRN (22:57)
[2018-05-29] MEDS ORDERED: ACETAMINOPHEN 500 MG TABLET PO PRN (22:57)
[2018-05-29] MEDS ORDERED: WARFARIN 2.5 MG TABLET PO SCH (23:00)
[2018-05-29] MEDS ORDERED: DILTIAZEM 180 MG CAP.XL.24H PO SCH (23:00)
[2018-05-29] MEDS: IPRATROPIUM/ALBUTEROL 3 ML AMPUL.NEB NEB SCH (23:26)
[2018-05-29] MEDS: 0.9 % SODIUM CHLORIDE 10 ML SYRINGE IV SCH (23:33)
[2018-05-30] MEDS ORDERED: DILTIAZEM 30 MG TABLET ONE (00:31)
[2018-05-30] MEDS ORDERED: ACETAMINOPHEN 325 MG TABLET PO ONE (00:32)
[2018-05-30] MEDS: methylPREDNISolone SOD SUCC 40 MG/ML VIAL IV SCH ×4 (00:35→17:23)
[2018-05-30] MEDS ORDERED: IPRATROPIUM/ALBUTEROL 3 ML AMPUL.NEB NEB ONE (02:31)
[2018-05-30] MEDS: IPRATROPIUM/ALBUTEROL 3 ML AMPUL.NEB NEB SCH ×6 (02:33→23:11)
[2018-05-30] MEDS: 0.9 % SODIUM CHLORIDE 10 ML SYRINGE IV SCH ×3 (05:54→21:08)
[2018-05-30 07:04] LABS: Basophils # (Auto) 0 K/mcL (0.0-0.3); Basophils % (Auto) 0 % (0.0-2.0); Eosinophils # (Auto) 0 K/mcL (0.0-0.7); Eosinophils % (Auto) 0 % (0.0-7.0); Granulocytes % (Auto) 94.3 % (38.0-78.0); Lymphocytes # (Auto) 0.2 K/mcL (1.5-4.8); Mean Cell Volume 89.1 fL (80.0-100.0); Mean Corpuscular HGB Conc 32.2 g/dL (31.0-36.0); Monocytes # (Auto) 0 K/mcL (0.1-0.9); Monocytes % (Auto) 0.7 % (1.0-12.0); Platelet Count 239 K/mcL (140-440); RBC 2.57 M/mcL (4.00-5.20)
--- NOTE | 2018-05-30 07:09 | Internal Med Progress Note ---
Medical - PN: Subj Patient information: Note initiated : 05/30/18 at 7:05 am Service Date, if different from initiated Date: [] Patient: Dania Em a 78 y/o F admitted on 05/29/18 for sob, cough, weakness, fever. Chief Complaint: [] Interval history: Ms. Em is a 78 year old F Presents with shortness of breath and cough. Patient states yesterday morning when she woke up she noticed that she was short of breath and weak. And later on developed worsening cough. She does have a cough at baseline but is progressively worse over the past 24 hours. She also has chronic wheezing but that is worse as well. She is does not require any oxygen at home. Been so weak that she fell. She has a history of history of asthmatic bronchitis and is told that she has chronic bronchitis. She has a chills and some nausea. Her daughter had flulike symptoms since New Year' and was found to have influenza A. In the ER patient was found to be hypoxic at 88% on room air rapid flu test showed that she was positive for influenza A. She received 3 DuoNeb treatments with improvement in her distress she is more comfortable now and is on 2-3 L nasal cannula. / Has sputum reduction upon coughing but sputum is now white clear. Feeling better overall. Feels like her shortness of breath is near normal although she is on oxygen. No overnight events. Review of Systems: denies headache/fever/chills/nausea/vomiting/chest or abdominal pain/diarrhea. Otherwise see above. - Constitutional Vitals: Vital Signs Temp Pulse Resp BP Pulse Ox 96.4 F L 91 H 18 120/68 94 05/30/18 06:42 05/30/18 04:00 05/30/18 06:42 05/30/18 06:42 05/30/18 06:42 Period Temp Pulse Resp BP Sys/Chavez Pulse Ox Last 24 Hr 96.4 F-100.1 F 82-101 18-24 104-184/48-156 92-97 Intake and Output 05/29/18 05/30/18 05/30/18 21:59 05:59 13:59 Intake Total 100 / 200 100 / 200 Output Total Balance 100 / 199 99 / 199 Weight 118.841 kg 121.79 kg Intake & Output: Intake & Output 05/29/18 05/30/18 05/30/18 21:59 05:59 13:59 Intake Total 100 / 200 100 / 200 Output Total Balance 100 / 199 99 / 199 Weight 118.841 kg 121.79 kg Intake: IV 100 / 100 Oral 100 / 100 Output: # of times incontinent of urine Exam: General: Alert, Awake, No acute Distress, obese Eyes/N/T: EOMI, Head/Neck: neck supple, CV: RRR, No murmurs, Pulm: b/l rhonchi and wheezing Abd: soft, nontender, +BS x4 Ext: no clubbing/cyanosis, 2+ chronic b/l LE edema Neuro: Alert, no focal deficits, moves all extremities, Skin: warm/dry Medical - PN: Obj Da - Labs CBC & Chem 7: 05/30/18 05:21 05/30/18 05:21 Labs: Abnormal Lab Results 05/30/18 05/30/18 05/29/18 05:21 05:21 21:30 RBC 2.57 L Hgb 7.4 L Hct 22.9 L RDW 17.0 H Gran % 94.3 H Lymph % (Auto) 5.0 L [place] % (Auto) 0.7 L Lymph # (Auto) 0.2 L [place] # (Auto) 0 L Lymphocytes % Monocytes % (Manual) RBC Morphology Anisocytosis PT 18.5 H 19.7 H INR 1.6 H 1.7 H Chloride BUN Creatinine Glucose Alkaline Phosphatase Globulin Albumin/Globulin Ratio Urine Protein 05/29/18 05/29/18 05/29/18 18:57 18:40 18:40 RBC 2.70 L Hgb 7.8 L Hct 24.0 L RDW 17.0 H Gran % Lymph % (Auto) [place] % (Auto) Lymph # (Auto) [place] # (Auto) Lymphocytes % 5 L Monocytes % (Manual) 14 H RBC Morphology Abnorm A Anisocytosis 1+ A PT INR Chloride 95 L BUN 63 H Creatinine 2.3 H Glucose 112 H Alkaline Phosphatase 129 H Globulin 3.9 H Albumin/Globulin Ratio 0.9 L Urine Protein 30 A Meds: Medications Acetaminophen (Tylenol) 650 mg PO Q6HP PRN PRN Reason: PAIN/FEVER > 101 Last Admin: 05/30/18 00:36 Dose: 650 mg Documented by: Acetaminophen (Tylenol) 500 mg PO HSP PRN PRN Reason: Pain Hydrocodone Bitart/Acetaminophen ([place] 5/325mg) 1 tab PO Q6H PRN PRN Reason: pain Albuterol/Ipratropium (Duoneb) 3 ml NEB Q4HRT [facility] Last Admin: 05/30/18 02:33 Dose: 3 ml Documented by: Albuterol/Ipratropium (Duoneb) 3 ml NEB Q6HRT PRN PRN Reason: Bronchospasm Allopurinol (Zyloprim) 100 mg PO QDAY [facility] Bisacodyl (Dulcolax) 10 mg PO DAILYP PRN PRN Reason: Constipation Ceftriaxone Sodium (Rocephin) 1 gm IV Q24H [facility] Diltiazem HCl (Cardizem Cd) 90 mg PO Q24H [facility] Last Admin: 05/30/18 00:36 Dose: Not Given Documented by: Docusate Sodium (Colace) 100 mg PO BID [facility] Famotidine (Pepcid) 20 mg PO HS [facility] Fluticasone Propionate (Flovent Hfa 110mcg) 2 puff INH BID [facility] Azithromycin 500 mg/ Dextrose 250 mls @ 250 mls/hr IV Q24H [facility] Stop: 05/31/18 23:36 Last Admin: 05/30/18 00:28 Dose: 250 mls/hr Documented by: Levothyroxine Sodium (Synthroid) 150 mcg PO QAMAC [facility] Methylprednisolone Sodium Succinate (Solu-Medrol) 20 mg IV Q6 [facility] Last Admin: 05/30/18 00:35 Dose: 20 mg Documented by: Metoprolol Tartrate (Lopressor) 5 mg IV Q2HP PRN PRN Reason: Tachyarrhythmias Omeprazole (Prilosec) 40 mg PO BIDAC [facility] Ondansetron HCl (Zofran) 4 mg IV Q4HP PRN PRN Reason: Nausea And Vomiting Oseltamivir Phosphate (Tamiflu) 30 mg PO DAILY [facility] Pneumococcal Polyvalent Vaccine (Pneumovax 23) 0.5 ml IM .ONCE ONE Stop: 05/31/18 10:01 Promethazine HCl (Phenergan) 12.5 mg PO Q6HP PRN PRN Reason: Nausea And Vomiting Senna (Senokot) 1 tab PO QDAY [facility] Sodium Chloride (Saline Flush) 10 ml IV Q8 [facility] Last Admin: 05/30/18 05:54 Dose: Not Given Documented by: Torsemide (Demadex) 40 mg PO BIDD [facility] Warfarin Sodium (Coumadin) 2.5 mg PO .COMPLEX [facility] Warfarin Sodium (Coumadin) 5 mg PO QDAY [facility] Medical - PN: A/P - Time Spent With Patient Total time spent is greater than 50% in coordination of care (as documented) at patient's floor/unit and/or counseling patient: - Narrative A/P Narrative: A: *Asthma exacerbation: Secondary to influenza A *Acute hypoxic respiratory failure: -placed on room air this morning, from 3L NC *Influenza A: *CKD IV: follows with Sejal *Anemia chronic: Receives Epo *History of chronic atrial fibrillation(PPM): On warfarin and diltiazem *BRENNA: But is noncompliant with CPAP *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
[2018-05-30 07:14] LABS: ALT/SGPT 11 U/l (0-40); Albumin 3.4 gm/dL (3.2-5.2); Albumin/Globulin Ratio 0.9 (1.0-2.3); Alkaline Phosphatase 117 U/L (39-117); Bilirubin,Direct < 0.2 mg/dL (0.0-0.3); Blood Urea Nitrogen 59 mg/dl (8-23); Gamma Glutamyl Transpeptidase 54 U/L (5-36); Uric Acid 10.2 mg/dL (2.5-8.0)
[2018-05-30] MEDS ORDERED: HYDROcodone/APAP 5/325MG TABLET PO PRN ×2 (07:30→13:51)
[2018-05-30] MEDS ORDERED: OMEPRAZOLE 20 MG CAPSULE PO SCH (07:30)
[2018-05-30] MEDS ORDERED: LEVOTHYROXINE 150 MCG TABLET PO SCH (07:30)
[2018-05-30] MEDS ORDERED: TORSEMIDE 10 MG TABLET PO SCH (08:00)
[2018-05-30] MEDS ORDERED: ENOXAPARIN 30 MG/0.3 ML SYRINGE SQ ONE (09:00)
[2018-05-30] MEDS ORDERED: FLUTICASONE HFA 110MCG INHALER INH SCH (09:00)
[2018-05-30] MEDS ORDERED: SILVER SULFADIAZINE CREAM.TOP 25GM TOPICAL SCH (09:00)
[2018-05-30] MEDS ORDERED: OSELTAMIVIR PHOSPHATE 6 MG/ML ORAL SOLUTION PO SCH (09:00)
[2018-05-30] MEDS ORDERED: OSELTAMIVIR PHOSPHATE 75 MG CAPSULE PO SCH (09:00)
[2018-05-30] MEDS ORDERED: cefTRIAXone 1 GM VIAL IV SCH (09:00)
[2018-05-30] MEDS ORDERED: DOCUSATE SODIUM 100 MG CAPSULE PO SCH ×2 (09:00)
[2018-05-30] MEDS ORDERED: SENNOSIDES 1 TABLET PO SCH (09:00)
[2018-05-30] MEDS ORDERED: WARFARIN 5 MG TABLET PO SCH (09:00)
[2018-05-30] MEDS ORDERED: ALLOPURINOL 100 MG TABLET PO SCH (09:00)
[2018-05-30] MEDS ORDERED: DILTIAZEM 240 MG CAP.XL.24H PO SCH (10:00)
[2018-05-30] MEDS ORDERED: METOPROLOL TARTRATE 5 MG/5 ML VIAL IV PRN (13:51)
[2018-05-30] MEDS ORDERED: IPRATROPIUM/ALBUTEROL 3 ML AMPUL.NEB NEB PRN (13:51)
[2018-05-30] MEDS ORDERED: BISACODYL 5 MG TABLET PO PRN (13:51)
[2018-05-30] MEDS ORDERED: ACETAMINOPHEN 500 MG TABLET PO PRN (13:51)
[2018-05-30] MEDS ORDERED: PROMETHAZINE 25 MG TABLET PO PRN (13:51)
[2018-05-30] MEDS ORDERED: ONDANSETRON 4 MG/2 ML VIAL IV PRN (13:51)
[2018-05-30] MEDS: AZITHROMYCIN 500 MG in DEXTROSE 5% IN WATER 250 ML IV SCH (14:29)
[2018-05-30] MEDS: TORSEMIDE 10 MG TABLET PO SCH (15:50)
[2018-05-30] MEDS: OMEPRAZOLE 20 MG CAPSULE PO SCH (17:23)
[2018-05-30] MEDS ORDERED: FAMOTIDINE 20 MG TABLET PO SCH (21:00)
[2018-05-30] MEDS: FAMOTIDINE 20 MG TABLET PO SCH (21:07)
[2018-05-30] MEDS: DOCUSATE SODIUM 100 MG CAPSULE PO SCH (21:07)
[2018-05-30] MEDS: SILVER SULFADIAZINE CREAM.TOP 25GM TOPICAL SCH (21:07)
[2018-05-30] MEDS: FLUTICASONE HFA 110MCG INHALER INH SCH (21:07)
[2018-05-31] MEDS: methylPREDNISolone SOD SUCC 40 MG/ML VIAL IV SCH ×2 (00:06→05:35)
[2018-05-31] MEDS: ACETAMINOPHEN 325 MG TABLET PO PRN ×2 (00:12→20:39)
[2018-05-31] MEDS ORDERED: VANCOMYCIN 1,500 MG in 0.9 % SODIUM CHLORIDE 500 ML IV ONE (04:12)
[2018-05-31] MEDS: IPRATROPIUM/ALBUTEROL 3 ML AMPUL.NEB NEB SCH ×6 (04:44→23:32)
[2018-05-31] MEDS: 0.9 % SODIUM CHLORIDE 10 ML SYRINGE IV SCH ×4 (04:45→20:56)
[2018-05-31 06:13] LABS: Basophils # (Auto) 0 K/mcL (0.0-0.3); Basophils % (Auto) 0 % (0.0-2.0); Eosinophils # (Auto) 0 K/mcL (0.0-0.7); Eosinophils % (Auto) 0 % (0.0-7.0); Granulocytes % (Auto) 92.6 % (38.0-78.0); Lymphocytes # (Auto) 0.3 K/mcL (1.5-4.8); Lymphocytes % (Auto) 3.9 % (15.5-49.0); Mean Cell Volume 88.7 fL (80.0-100.0); Mean Corpuscular HGB Conc 32.4 g/dL (31.0-36.0); Monocytes # (Auto) 0.3 K/mcL (0.1-0.9); Monocytes % (Auto) 3.5 % (1.0-12.0); Platelet Count 226 K/mcL (140-440); RBC 2.67 M/mcL (4.00-5.20); Red Cell Distribution Width 16.9 % (11.5-14.5)
[2018-05-31 06:19] LABS: Blood Urea Nitrogen 71 mg/dl (8-23)
[2018-05-31] MEDS ORDERED: VANCOMYCIN PER PHARMACY IV ONE (06:30)
[2018-05-31] MEDS ORDERED: VANCOMYCIN PER PHARMACY IV SCH (07:15)
[2018-05-31] MEDS: TORSEMIDE 10 MG TABLET PO SCH ×2 (07:41→16:50)
[2018-05-31] MEDS: LEVOTHYROXINE 150 MCG TABLET PO SCH (07:41)
[2018-05-31] MEDS: OMEPRAZOLE 20 MG CAPSULE PO SCH ×2 (07:41→16:50)
--- NOTE | 2018-05-31 09:04 | Internal Med Progress Note ---
Medical - PN: Subj Patient information: Note initiated : 05/31/18 at 9:01 am Service Date, if different from initiated Date: [] Patient: Dania mE a 78 y/o F admitted on 05/29/18 for sob, cough, weakness, fever. Chief Complaint: [] Interval history: Ms. Em is a 78 year old F Presents with shortness of breath and cough. Patient states yesterday morning when she woke up she noticed that she was short of breath and weak. And later on developed worsening cough. She does have a cough at baseline but is progressively worse over the past 24 hours. She also has chronic wheezing but that is worse as well. She is does not require any oxygen at home. Been so weak that she fell. She has a history of history of asthmatic bronchitis and is told that she has chronic bronchitis. She has a chills and some nausea. Her daughter had flulike symptoms since New Year and was found to have influenza A. In the ER patient was found to be hypoxic at 88% on room air rapid flu test showed that she was positive for influenza A. She received 3 DuoNeb treatments with improvement in her distress she is more comfortable now and is on 2-3 L nasal cannula. 05/30 Has sputum reduction upon coughing but sputum is now white clear. Feeling better overall. Feels like her shortness of breath is near normal although she is on oxygen. No overnight events. 05/31-patient doing well. Complains of vaginal itching. No overnight events. On 2 L oxygen. Creatinine stable at 2.4. Able to ambulate with assistance. Ongoing physical therapy. Anticipate discharge in 24-48 hours. Start fluconazole. - Constitutional Vitals: Vital Signs Temp Pulse Resp BP Pulse Ox 97.0 F 85 18 130/72 93 05/31/18 06:30 05/31/18 07:22 05/31/18 07:22 05/31/18 06:30 05/31/18 07:22 Period Temp Pulse Resp BP Sys/Chavez Pulse Ox Last 24 Hr 96.7 F-98.6 F 74-94 18-22 116-130/60-72 88-98 Intake and Output 05/30/18 05/31/18 05/31/18 21:59 05:59 13:59 Intake Total 650 / 1470 700 / 1470 Output Total 400 / 900 300 / 900 150 / 150 Balance 250 / 570 400 / 570 -150 / -150 Weight 266 lb 3.2 oz Intake & Output: Intake & Output 05/30/18 05/31/18 05/31/18 21:59 05:59 13:59 Intake Total 650 / 1470 700 / 1470 Output Total 400 / 900 300 / 900 150 / 150 Balance 250 / 570 400 / 570 -150 / -150 Weight 266 lb 3.2 oz Intake: IV 250 / 250 Zithromax 500 mg In Dextrose 5% 250 / 250 in Water 250 ml @ 250 mls/hr IV DAILY [facility] Rx#:[id number] Oral 400 / 1220 700 / 1220 Output: Void Amount 400 / 900 300 / 900 150 / 150 # of times incontinent of urine 0 / 0 Other: Meal Dinner Percent of Meal Consumed 50% Urine Appearance Clear Clear Urine Color Bright Yellow Bright Yellow Urine Odor Normal # Voids 1 1 1 General appearance: no acute distress Exam: Alert oriented nonlabored breathing No anxiety No lymphedema Medical - PN: Obj Da - Labs CBC & Chem 7: 05/31/18 04:40 05/31/18 04:40 Labs: Abnormal Lab Results 05/31/18 05/31/18 05/31/18 04:40 04:40 04:40 RBC 2.67 L Hgb 7.7 L Hct 23.6 L RDW 16.9 H Gran % 92.6 H Lymph % (Auto) 3.9 L [place] % (Auto) Lymph # (Auto) 0.3 L [place] # (Auto) Lymphocytes % Monocytes % (Manual) RBC Morphology Anisocytosis PT 16.0 H INR 1.3 H Chloride 95 L Anion Gap 17.0 H BUN 71 H Creatinine 2.4 H Glucose 175 H Uric Acid Calcium GGT Alkaline Phosphatase Globulin Albumin/Globulin Ratio Urine Protein 05/30/18 05/30/18 05/30/18 05:21 05:21 05:21 RBC 2.57 L Hgb 7.4 L Hct 22.9 L RDW 17.0 H Gran % 94.3 H Lymph % (Auto) 5.0 L [place] % (Auto) 0.7 L Lymph # (Auto) 0.2 L [place] # (Auto) 0 L Lymphocytes % Monocytes % (Manual) RBC Morphology Anisocytosis PT 18.5 H INR 1.6 H Chloride 95 L Anion Gap BUN 59 H Creatinine 2.1 H Glucose 204 H Uric Acid 10.2 H Calcium 8.3 L GGT 54 H Alkaline Phosphatase Globulin 4.0 H Albumin/Globulin Ratio 0.9 L Urine Protein 05/29/18 05/29/18 05/29/18 21:30 18:57 18:40 RBC 2.70 L Hgb 7.8 L Hct 24.0 L RDW 17.0 H Gran % Lymph % (Auto) [place] % (Auto) Lymph # (Auto) [place] # (Auto) Lymphocytes % 5 L Monocytes % (Manual) 14 H RBC Morphology Abnorm A Anisocytosis 1+ A PT 19.7 H INR 1.7 H Chloride Anion Gap BUN Creatinine Glucose Uric Acid Calcium GGT Alkaline Phosphatase Globulin Albumin/Globulin Ratio Urine Protein 30 A 05/29/18 18:40 RBC Hgb Hct RDW Gran % Lymph % (Auto) [place] % (Auto) Lymph # (Auto) [place] # (Auto) Lymphocytes % Monocytes % (Manual) RBC Morphology Anisocytosis PT INR Chloride 95 L Anion Gap BUN 63 H Creatinine 2.3 H Glucose 112 H Uric Acid Calcium GGT Alkaline Phosphatase 129 H Globulin 3.9 H Albumin/Globulin Ratio 0.9 L Urine Protein Meds: Medications Acetaminophen (Tylenol) 650 mg PO Q6HP PRN PRN Reason: PAIN/FEVER > 101 Last Admin: 05/31/18 00:12 Dose: 650 mg Documented by: Hydrocodone Bitart/Acetaminophen ([place] 5/325mg) 1 tab PO Q6HP PRN PRN Reason: pain Albuterol/Ipratropium (Duoneb) 3 ml NEB Q6HRT PRN PRN Reason: Bronchospasm Albuterol/Ipratropium (Duoneb) 3 ml NEB Q4HRT [facility] Last Admin: 05/31/18 07:13 Dose: 3 ml Documented by: Allopurinol (Zyloprim) 100 mg PO QDAY [facility] Bisacodyl (Dulcolax) 10 mg PO DAILYP PRN PRN Reason: Constipation Ceftriaxone Sodium (Rocephin) 1 gm IV Q24H [facility] Diltiazem HCl (Cardizem Cd) 240 mg PO DAILY [facility] Docusate Sodium (Colace) 100 mg PO BID [facility] Last Admin: 05/30/18 21:07 Dose: 100 mg Documented by: Famotidine (Pepcid) 20 mg PO HS [facility] Last Admin: 05/30/18 21:07 Dose: 20 mg Documented by: Fluconazole (Diflucan) 100 mg PO DAILY [facility] Fluticasone Propionate (Flovent Hfa 110mcg) 2 puff INH BID [facility] Last Admin: 05/30/18 21:07 Dose: Not Given Documented by: Azithromycin 500 mg/ Dextrose 250 mls @ 250 mls/hr IV DAILY [facility] Stop: 05/31/18 09:59 Last Infusion: 05/30/18 15:49 Dose: Infused Documented by: Vancomycin HCl 1,500 mg/ (Sodium Chloride) 500 mls @ 333.3 mls/hr IV Q24H [facility] Levothyroxine Sodium (Synthroid) 150 mcg PO QAMAC [facility] Last Admin: 05/31/18 07:41 Dose: 150 mcg Documented by: Methylprednisolone Sodium Succinate (Solu-Medrol) 20 mg IV Q6 [facility] Last Admin: 05/31/18 05:35 Dose: 20 mg Documented by: Metoprolol Tartrate (Lopressor) 5 mg IV Q2HP PRN PRN Reason: Tachyarrhythmias Oseltamivir Phosphate 6 Mg/Ml Oral Solution 1 dose PO DAILY [facility] Stop: 06/03/18 09:01 Omeprazole (Prilosec) 40 mg PO BIDAC [facility] Last Admin: 05/31/18 07:41 Dose: 40 mg Documented by: Ondansetron HCl (Zofran) 4 mg IV Q4HP PRN PRN Reason: Nausea And Vomiting Promethazine HCl (Phenergan) 12.5 mg PO Q6HP PRN PRN Reason: Nausea And Vomiting Senna (Senokot) 1 tab PO QDAY [facility] Silver Sulfadiazine (Silvadene) 2 dose TOPICAL BID [facility] Last Admin: 05/30/18 21:07 Dose: 2 dose Documented by: Sodium Chloride (Saline Flush) 10 ml IV Q8 [facility] Last Admin: 05/31/18 04:45 Dose: 10 ml Documented by: Torsemide (Demadex) 40 mg PO BIDD [facility] Last Admin: 05/31/18 07:41 Dose: 40 mg Documented by: Vancomycin HCl (Vancomycin Per Pharmacy) 1 order IV UD [facility] Warfarin Sodium (Coumadin Per Pharmacy) 1 order PO UD [facility] Warfarin Sodium (Coumadin) 2.5 mg PO ONCE@1400 ONE Stop: 05/31/18 14:01 Medical - PN: A/P - Time Spent With Patient Total time spent is greater than 50% in coordination of care (as documented) at patient's floor/unit and/or counseling patient: 15 - 24 minutes (1) Influenza A Status: Acute Assessment and plan: * Acute influenza A * Asthma exacerbation secondary influenza * Hypoxic respiratory failure secondary to above on 2 L oxygen. Improving * Vaginal thrush-start fluconazole * At bedtime EKG stage IV following with nephrology * Chronic anemia on erythropoietin * Chronic A. fib on warfarin/diltiazem * BRENNA not on CPAP * History of CVA-right upper extremity residual deficits * History of GERD * Hypothyroidism thyroxine * Chronic pain PLAN * Continue bronchodilators/nebs * PT OT wound care * Warfarin dosing per pharmacy * Fluconazole * Switched to oral prednisone * De-escalate antibiotics Current Visit: Yes Medical - PN: Qual - VTE Deep Vein Thrombosis/Pulmonary Embolism Present on Admission: No
[2018-05-31] MEDS: DILTIAZEM 240 MG CAP.XL.24H PO SCH (09:40)
[2018-05-31] MEDS: FLUCONAZOLE 100 MG TABLET PO SCH (09:41)
[2018-05-31] MEDS: DOCUSATE SODIUM 100 MG CAPSULE PO SCH ×2 (09:41→19:00)
[2018-05-31] MEDS: ALLOPURINOL 100 MG TABLET PO SCH (09:41)
[2018-05-31] MEDS: FLUTICASONE HFA 110MCG INHALER INH SCH ×2 (09:41→20:41)
[2018-05-31] MEDS: cefTRIAXone 1 GM VIAL IV SCH (09:42)
[2018-05-31] MEDS: SENNOSIDES 1 TABLET PO SCH (09:42)
[2018-05-31] MEDS: AZITHROMYCIN 500 MG in DEXTROSE 5% IN WATER 250 ML IV SCH (09:43)
[2018-05-31] MEDS: OSELTAMIVIR PHOSPHATE 6 MG/ML ORAL SOLUTION PO SCH (09:43)
[2018-05-31] MEDS ORDERED: PNEUMOCOCCAL 23-VAL P-SAC VAC 0.5 ML SYRINGE IM ONE (10:00)
--- NOTE | 2018-05-31 12:15 | General Surgery Consult Note ---
History of Present Illness Patient information: Note initiated : 05/31/18 at 12:05 pm Service Date, if different from initiated Date: [] Patient: Dania Em 78 y/o F admitted on 05/29/18 for sob, cough, weakness, fever. Chief Complaint: [] Consult date: 05/31/18 Requesting physician: Pako Rojas (Skin wounds Buttocks / thighs) History of present illness: I saw this patient along with Renae TURNER wound and ostomy nurse yesterday ands reassessed her again today. Examined wounds and reviewed on going wound care with nursing staff. This is an elderly morbid obese lady admitted via ER with acute respiratory exacerbation of asthma and flu and hypoxia. Currently improving. She has other co-morbid medical problems which are stable and managed appropriately. She has fungal dermatitis and superficial epidermal skin ulcerations around skin folds of buttocks and posterior thighs. These are improving with conservative wound care started earlier. She has restricted mobility and sits on chair for prolonged periods at a time. She is feeling better and able to ambulate now in room with walker and under supervision. Medications and Allergies Home Medications Medication Instructions Recorded Confirmed Type albuterol sulfate HFA 90 See Rx Instructions .ROUTE 10/13/15 05/29/18 Rx mcg/actuation aerosol inhaler .COMPLEX #8 g docusate sodium 100 mg capsule 100 mg PO BID #60 cap 10/02/16 05/29/18 Rx sennosides 8.6 mg tablet 8.6 mg PO QDAY 10/29/16 05/29/18 History omeprazole 40 mg capsule,delayed 40 mg PO BID 30 Days #60 cap 05/03/17 05/29/18 History release Acetaminophen [Acetaminophen Extra 500 mg PO HSP PRN 08/24/17 05/29/18 History Strength] Atorvastatin [Lipitor] 10 mg PO HS tab 08/25/17 05/29/18 Rx Ferrous Sulfate 325 mg PO BIDCC tab 08/25/17 05/29/18 Rx Ipratropium/Albuterol [Duoneb] 3 ml NEB Q4HP PRN #90 ampul.neb 08/25/17 05/29/18 Rx fluticasone 110 mcg/actuation HFA 2 puff INHALATION BID 09/03/17 05/29/18 History aerosol inhaler levothyroxine 150 mcg tablet 150 mcg PO QDAY 90 Days #90 tab 12/30/17 05/29/18 Rx cyanocobalamin (vit B-12) 1,000 1,000 mcg IM QMONTH #12 ml 02/25/18 05/29/18 Rx mcg/mL injection solution hydrocodone 5 mg-acetaminophen 325 1 tab PO Q6H PRN #90 tab 03/27/18 05/29/18 Rx mg tablet allopurinol 100 mg tablet 100 mg PO QDAY #90 tab 04/01/18 05/29/18 Rx torsemide 20 mg tablet 40 mg PO BID 90 Days #360 tab 04/14/18 05/29/18 Rx darbepoetin fatou 100 mcg/mL in 100 mcg SUB-Q Q2W PRN ml 05/05/18 05/29/18 History polysorbate injection metolazone 2.5 mg tablet 2.5 mg PO .QOD #30 tab 05/19/18 05/29/18 Rx Ipratropium/Albuterol [Duoneb] 3 ml NEB Q4HRT PRN 05/29/18 05/29/18 History iron sucrose 200 mg iron/10 mL 200 mg IV QWEEK #50 ml 05/29/18 05/29/18 Rx intravenous solution syringe with needle 3 mL 25 x 1 0 dose .ROUTE .MEDSUPPLY 05/29/18 05/29/18 History 1/2" Diltiazem [Cardizem Cd] 240 mg PO DAILY 05/30/18 05/30/18 History Warfarin [Coumadin] 2.5 mg PO DAILY 05/30/18 05/30/18 History Allergies Allergy/AdvReac Type Severity Reaction Status Date / Time adhesive Allergy Mild Blister Verified 05/30/18 06:13 Exam Temp Pulse Resp BP Pulse Ox 97.8 F 90 18 127/75 97 05/31/18 11:25 05/31/18 11:25 05/31/18 11:25 05/31/18 11:25 05/31/18 11:25 - General physical appearance well developed, well nourished, no distress, obese, other (Feeling better with supplemental O2, empiric IV antibiotics and analgesics. ) - Eyes PERRL, normal ocular movement - ENT normal pinna, normal nares, normal mucosa, no congestion, other (NO flaring of nostrils. ) - Head Head exam IM: Present: atraumatic, normal inspection, normocephalic - Neck no masses, no bruits, trachea midline, no venous distension - Cardiovascular Cardiovascular exam IM: Present: irregular rhythm - Respiratory normal respiratory effort absent breath sounds: bilateral (Diminished breath sounds at bases. ) - Abdomen Abdomen: Present: soft, non tender, bowel sounds - Genitourinary Present: other (Dermatitis around external genitalia and perineal area improving. Rivera Catheter in situ.) - Integumentary Present: other (Superficial contact dermatits and epidermal ulcerations. Responding to local care and silvadene creme. ) - Neurologic Present: normal coordination, normal sensation (No focal neurological deficits. ) - Musculoskeletal Present: other (Ambulates with walker and under supervision . On supplemental O2 at 1 Liter minute. ) - Psychiatric Present: oriented to time, oriented to person, oriented to place, speech is normal, memory intact Results - Labs 05/31/18 04:40 05/31/18 04:40 Abnormal lab results 05/31/18 05/31/18 05/31/18 Range/Units 04:40 04:40 04:40 RBC 2.67 L (4.00-5.20) M/mcL Hgb 7.7 L (12.0-15.0) g/dL Hct 23.6 L (36.0-48.0) % RDW 16.9 H (11.5-14.5) % Gran % 92.6 H (38.0-78.0) % Lymph % (Auto) 3.9 L (15.5-49.0) % Lymph # (Auto) 0.3 L (1.5-4.8) K/mcL PT 16.0 H (11.9-14.5) sec INR 1.3 H (0.9-1.1) Chloride 95 L (96-108) mmol/L Anion Gap 17.0 H (8-16) BUN 71 H (8-23) mg/dl Creatinine 2.4 H (0.6-1.1) mg/dl Glucose 175 H (70-105) mg/dL Diabetes panel 05/31/18 Range/Units 04:40 Sodium 138 (133-145) mmol/L Potassium 3.3 (3.3-5.1) mmol/L Chloride 95 L (96-108) mmol/L Carbon Dioxide 26 (22-30) mmol/L BUN 71 H (8-23) mg/dl Creatinine 2.4 H (0.6-1.1) mg/dl Glucose 175 H (70-105) mg/dL Calcium 8.7 (8.6-10.4) mg/dl Calcium panel 05/31/18 Range/Units 04:40 Calcium 8.7 (8.6-10.4) mg/dl Pituitary panel 05/31/18 Range/Units 04:40 Sodium 138 (133-145) mmol/L Potassium 3.3 (3.3-5.1) mmol/L Chloride 95 L (96-108) mmol/L Carbon Dioxide 26 (22-30) mmol/L BUN 71 H (8-23) mg/dl Creatinine 2.4 H (0.6-1.1) mg/dl Glucose 175 H (70-105) mg/dL Calcium 8.7 (8.6-10.4) mg/dl Adrenal panel 05/31/18 Range/Units 04:40 Sodium 138 (133-145) mmol/L Potassium 3.3 (3.3-5.1) mmol/L Chloride 95 L (96-108) mmol/L Carbon Dioxide 26 (22-30) mmol/L BUN 71 H (8-23) mg/dl Creatinine 2.4 H (0.6-1.1) mg/dl Glucose 175 H (70-105) mg/dL Calcium 8.7 (8.6-10.4) mg/dl All other labs normal. Assessment and Plan (1) Dermatitis associated with moisture Status: Chronic Priority: Medium Comment: Assessment: Moisture associated dermatitis of perineal and posterior thigh areas. Plan: Local wound care, Off laoding, Physical therapy and topical silvadene creme If discharged, follow up at wound care center in ONE week.
[2018-05-31] MEDS: SILVER SULFADIAZINE CREAM.TOP 25GM TOPICAL SCH ×2 (13:08→20:40)
[2018-05-31] MEDS ORDERED: WARFARIN 2.5 MG TABLET PO ONE (14:00)
[2018-05-31] MEDS: FAMOTIDINE 20 MG TABLET PO SCH (20:31)
[2018-06-01] MEDS: IPRATROPIUM/ALBUTEROL 3 ML AMPUL.NEB NEB SCH ×6 (03:39→22:59)
[2018-06-01] MEDS: 0.9 % SODIUM CHLORIDE 10 ML SYRINGE IV SCH ×3 (04:53→20:30)
[2018-06-01] MEDS ORDERED: POTASSIUM CHLORIDE 20 MEQ/15 ML ML PT ONE (06:50)
--- NOTE | 2018-06-01 06:57 | Internal Med Progress Note ---
Medical - PN: Subj Patient information: Note initiated : 06/01/18 at 6:54 am Service Date, if different from initiated Date: [] Patient: Dania Em a 78 y/o F admitted on 05/29/18 for sob, cough, weakness, fever. Chief Complaint: [] Interval history: Ms. Em is a 78 year old F Presents with shortness of breath and cough. Patient states yesterday morning when she woke up she noticed that she was short of breath and weak. And later on developed worsening cough. She does have a cough at baseline but is progressively worse over the past 24 hours. She also has chronic wheezing but that is worse as well. She is does not require any oxygen at home. Been so weak that she fell. She has a history of history of asthmatic bronchitis and is told that she has chronic bronchitis. She has a chills and some nausea. Her daughter had flulike symptoms since New Year and was found to have influenza A. In the ER patient was found to be hypoxic at 88% on room air rapid flu test showed that she was positive for influenza A. She received 3 DuoNeb treatments with improvement in her distress she is more comfortable now and is on 2-3 L nasal cannula. 05/30 Has sputum reduction upon coughing but sputum is now white clear. Feeling better overall. Feels like her shortness of breath is near normal although she is on oxygen. No overnight events. 05/31-patient doing well. Complains of vaginal itching. No overnight events. On 2 L oxygen. Creatinine stable at 2.4. Able to ambulate with assistance. Ongoing physical therapy. Anticipate discharge in 24-48 hours. Start fluconazole. 06/01-patient doing better. Now on room air. On empiric coverage and vancomycin for GPC bacteremia. Final culture sensitivities pending. No overnight fever or chills. Possible discharge in 24 hours if cultures prove been contaminant. No fever or signs of active infection. Vaginal thrush currently on fluconazole and feeling better. - Constitutional Vitals: Vital Signs Temp Pulse Resp BP Pulse Ox 97.1 F 77 20 149/68 95 06/01/18 06:41 06/01/18 03:44 06/01/18 06:41 06/01/18 06:41 06/01/18 06:41 Period Temp Pulse Resp BP Sys/Chavez Pulse Ox Last 24 Hr 97 F-97.8 F 74-90 18-22 127-155/64-75 90-97 Intake and Output 05/31/18 06/01/18 06/01/18 21:59 05:59 13:59 Intake Total 800 / 1240 200 / 1240 Output Total 400 / 1350 100 / 1350 Balance 400 / -110 100 / -110 Weight 241 lb Intake & Output: Intake & Output 05/31/18 06/01/18 06/01/18 21:59 05:59 13:59 Intake Total 800 / 1240 200 / 1240 Output Total 400 / 1350 100 / 1350 Balance 400 / -110 100 / -110 Weight 241 lb Intake: Oral 800 / 1240 200 / 1240 Output: Void Amount 400 / 1350 100 / 1350 Other: # Voids 1 1 General appearance: cooperative, no acute distress Exam: Alert oriented Nonlabored breathing Nondistended abdomen Sitting on chair Medical - PN: Obj Da - Labs CBC & Chem 7: 05/31/18 04:40 05/31/18 04:40 Labs: Abnormal Lab Results 06/01/18 05/31/18 05/31/18 04:32 04:40 04:40 RBC Hgb Hct RDW Gran % Lymph % (Auto) [place] % (Auto) Lymph # (Auto) [place] # (Auto) Lymphocytes % Monocytes % (Manual) RBC Morphology Anisocytosis PT 15.4 H 16.0 H INR 1.2 H 1.3 H Chloride 95 L Anion Gap 17.0 H BUN 71 H Creatinine 2.4 H Glucose 175 H Uric Acid Calcium GGT Alkaline Phosphatase Globulin Albumin/Globulin Ratio Urine Protein 05/31/18 05/30/18 05/30/18 04:40 05:21 05:21 RBC 2.67 L Hgb 7.7 L Hct 23.6 L RDW 16.9 H Gran % 92.6 H Lymph % (Auto) 3.9 L [place] % (Auto) Lymph # (Auto) 0.3 L [place] # (Auto) Lymphocytes % Monocytes % (Manual) RBC Morphology Anisocytosis PT 18.5 H INR 1.6 H Chloride 95 L Anion Gap BUN 59 H Creatinine 2.1 H Glucose 204 H Uric Acid 10.2 H Calcium 8.3 L GGT 54 H Alkaline Phosphatase Globulin 4.0 H Albumin/Globulin Ratio 0.9 L Urine Protein 01/09/1205/29/18 05/29/18 05:21 21:30 18:57 RBC 2.57 L Hgb 7.4 L Hct 22.9 L RDW 17.0 H Gran % 94.3 H Lymph % (Auto) 5.0 L [place] % (Auto) 0.7 L Lymph # (Auto) 0.2 L [place] # (Auto) 0 L Lymphocytes % Monocytes % (Manual) RBC Morphology Anisocytosis PT 19.7 H INR 1.7 H Chloride Anion Gap BUN Creatinine Glucose Uric Acid Calcium GGT Alkaline Phosphatase Globulin Albumin/Globulin Ratio Urine Protein 30 A 05/29/18 05/29/18 18:40 18:40 RBC 2.70 L Hgb 7.8 L Hct 24.0 L RDW 17.0 H Gran % Lymph % (Auto) [place] % (Auto) Lymph # (Auto) [place] # (Auto) Lymphocytes % 5 L Monocytes % (Manual) 14 H RBC Morphology Abnorm A Anisocytosis 1+ A PT INR Chloride 95 L Anion Gap BUN 63 H Creatinine 2.3 H Glucose 112 H Uric Acid Calcium GGT Alkaline Phosphatase 129 H Globulin 3.9 H Albumin/Globulin Ratio 0.9 L Urine Protein Meds: Medications Acetaminophen (Tylenol) 650 mg PO Q6HP PRN PRN Reason: PAIN/FEVER > 101 Last Admin: 05/31/18 20:39 Dose: 650 mg Documented by: Hydrocodone Bitart/Acetaminophen ([place] 5/325mg) 1 tab PO Q6HP PRN PRN Reason: pain Albuterol/Ipratropium (Duoneb) 3 ml NEB Q6HRT PRN PRN Reason: Bronchospasm Albuterol/Ipratropium (Duoneb) 3 ml NEB Q4HRT [facility] Last Admin: 06/01/18 03:39 Dose: 3 ml Documented by: Allopurinol (Zyloprim) 100 mg PO QDAY [facility] Last Admin: 05/31/18 09:41 Dose: 100 mg Documented by: Bisacodyl (Dulcolax) 10 mg PO DAILYP PRN PRN Reason: Constipation Last Admin: 05/31/18 16:50 Dose: 10 mg Documented by: Ceftriaxone Sodium (Rocephin) 1 gm IV Q24H [facility] Last Admin: 05/31/18 09:42 Dose: 1 gm Documented by: Diltiazem HCl (Cardizem Cd) 240 mg PO DAILY [facility] Last Admin: 05/31/18 09:40 Dose: 240 mg Documented by: Docusate Sodium (Colace) 100 mg PO BID [facility] Last Admin: 05/31/18 19:00 Dose: Not Given Documented by: Famotidine (Pepcid) 20 mg PO HS [facility] Last Admin: 05/31/18 20:31 Dose: 20 mg Documented by: Fluconazole (Diflucan) 100 mg PO DAILY [facility] Last Admin: 05/31/18 09:41 Dose: 100 mg Documented by: Fluticasone Propionate (Flovent Hfa 110mcg) 2 puff INH BID [facility] Last Admin: 05/31/18 20:41 Dose: Not Given Documented by: Vancomycin HCl 1,500 mg/ (Sodium Chloride) 500 mls @ 333.3 mls/hr IV Q24H [facility] Levothyroxine Sodium (Synthroid) 150 mcg PO QAMAC [facility] Last Admin: 05/31/18 07:41 Dose: 150 mcg Documented by: Metoprolol Tartrate (Lopressor) 5 mg IV Q2HP PRN PRN Reason: Tachyarrhythmias Oseltamivir Phosphate 6 Mg/Ml Oral Solution 1 dose PO DAILY [facility] Stop: 06/03/18 09:01 Last Admin: 05/31/18 09:43 Dose: 1 dose Documented by: Omeprazole (Prilosec) 40 mg PO BIDAC [facility] Last Admin: 05/31/18 16:50 Dose: 40 mg Documented by: Ondansetron HCl (Zofran) 4 mg IV Q4HP PRN PRN Reason: Nausea And Vomiting Potassium Chloride (Potassium Chloride) 40 meq PT ONCE ONE Stop: 06/01/18 06:51 [facility] Promethazine HCl (Phenergan) 12.5 mg PO Q6HP PRN PRN Reason: Nausea And Vomiting Senna (Senokot) 1 tab PO QDAY [facility] Last Admin: 05/31/18 09:42 Dose: 1 tab Documented by: Silver Sulfadiazine (Silvadene) 2 dose TOPICAL BID [facility] Last Admin: 05/31/18 20:40 Dose: 2 dose Documented by: Sodium Chloride (Saline Flush) 10 ml IV Q8 [facility] Last Admin: 06/01/18 04:53 Dose: 10 ml Documented by: Torsemide (Demadex) 40 mg PO BIDD [facility] Last Admin: 05/31/18 16:50 Dose: 40 mg Documented by: Vancomycin HCl (Vancomycin Per Pharmacy) 1 order IV UD [facility] Warfarin Sodium (Coumadin Per Pharmacy) 1 order PO UD [facility] Medical - PN: A/P - Time Spent With Patient Total time spent is greater than 50% in coordination of care (as documented) at patient's floor/unit and/or counseling patient: 15 - 24 minutes (1) Influenza A Status: Acute Assessment and plan: * Acute influenza A * Asthma exacerbation secondary influenza * GPC bacteremia-on IV vancomycin. De-escalate based on cultures * Hypoxic respiratory failure secondary to above -now on room air * Vaginal thrush-start fluconazole * At bedtime EKG stage IV following with nephrology * Chronic anemia on erythropoietin * Chronic A. fib on warfarin/diltiazem * BRENNA not on CPAP * History of CVA-right upper extremity residual deficits * History of GERD * Hypothyroidism thyroxine * Chronic pain PLAN * Continue bronchodilators/nebs * Await culture sensitivities * PT OT wound care * Warfarin dosing per pharmacy * Continue fluconazole for additional 3 days * oral prednisone for 5 days * Possible discharge in 24 hours Current Visit: Yes Medical - PN: Qual - VTE Deep Vein Thrombosis/Pulmonary Embolism Present on Admission: No
[2018-06-01] MEDS: LEVOTHYROXINE 150 MCG TABLET PO SCH (07:29)
[2018-06-01] MEDS: OMEPRAZOLE 20 MG CAPSULE PO SCH ×2 (07:29→16:55)
[2018-06-01 07:40] LABS: ALT/SGPT 15 U/l (0-40); Albumin 3.8 gm/dL (3.2-5.2); Albumin/Globulin Ratio 0.9 (1.0-2.3); Alkaline Phosphatase 114 U/L (39-117); Bilirubin,Direct < 0.2 mg/dL (0.0-0.3); Blood Urea Nitrogen 78 mg/dl (8-23); Gamma Glutamyl Transpeptidase 57 U/L (5-36); Uric Acid 12.3 mg/dL (2.5-8.0)
[2018-06-01] MEDS ORDERED: POTASSIUM CHLORIDE 20 MEQ TABLET PO ONE ×2 (07:49→09:15)
[2018-06-01] MEDS: FLUCONAZOLE 100 MG TABLET PO SCH (08:39)
[2018-06-01] MEDS: DILTIAZEM 240 MG CAP.XL.24H PO SCH (08:39)
[2018-06-01] MEDS: DOCUSATE SODIUM 100 MG CAPSULE PO SCH ×2 (08:39→20:29)
[2018-06-01] MEDS: SENNOSIDES 1 TABLET PO SCH (08:39)
[2018-06-01] MEDS: predniSONE 20 MG TABLET PO SCH (08:39)
[2018-06-01] MEDS: TORSEMIDE 10 MG TABLET PO SCH ×2 (08:40→15:19)
[2018-06-01] MEDS: ALLOPURINOL 100 MG TABLET PO SCH (08:40)
[2018-06-01] MEDS: FLUTICASONE HFA 110MCG INHALER INH SCH ×2 (08:41→20:30)
[2018-06-01] MEDS: OSELTAMIVIR PHOSPHATE 6 MG/ML ORAL SOLUTION PO SCH (08:42)
[2018-06-01] MEDS: cefTRIAXone 1 GM VIAL IV SCH (08:43)
[2018-06-01] MEDS: VANCOMYCIN 1,500 MG in 0.9 % SODIUM CHLORIDE 500 ML IV SCH (08:54)
[2018-06-01] MEDS: SILVER SULFADIAZINE CREAM.TOP 25GM TOPICAL SCH ×2 (10:20→20:36)
--- NOTE | 2018-06-01 11:51 | Discharge Summary ---
Medical - DS: Prov Patient information: Note initiated : 06/01/18 at 11:49 am Service Date, if different from initiated Date: [] Patient: Dania Em 78 y/o F admitted on 05/29/18 for sob, cough, weakness, fever. Chief Complaint: [] Date of admission: 05/29/18 22:17 Discharge date: 06/02/18 Primary care physician: Jg Zacarias Consults: 05/29/18 Consult to Physician [CONS] Stat Comment: Consulting Provider: Pako Rojas Reason For Exam: Physician to Consult 05/30/18 08:50 Consult to Physician [CONS] Routine Comment: [facility] [place] Consulting Provider: Jesus Holden Reason For Exam: Physician to Consult Medical - DS: Meds - Discharge Medications Prescriptions: Fluconazole [Diflucan] 100 mg PO DAILY #3 tab Oseltamivir Phosphate 30 mg PO DAILY #1 cap predniSONE [Prednisone] 20 mg PO [facility] #5 tab Active and Home Medications: Home Medications albuterol sulfate HFA 90 mcg/actuation aerosol inhaler See Rx Instructions .ROUTE .COMPLEX #8 g 10/13/15 [Rx Confirmed 05/29/18 Last Taken 08/24/17 09:00] docusate sodium 100 mg capsule 100 mg PO BID #60 cap 10/02/16 [Rx Confirmed 05/29/18 Last Taken 08/24/17 09:00] sennosides 8.6 mg tablet 8.6 mg PO QDAY 10/29/16 [History Confirmed 05/29/18 Last Taken 08/23/17 21:00] omeprazole 40 mg capsule,delayed release 40 mg PO BID 30 Days #60 cap 05/03/17 [History Confirmed 05/29/18 Last Taken 08/24/17 06:00] Acetaminophen [Acetaminophen Extra Strength] 500 mg PO HSP PRN 08/24/17 [History Confirmed 05/29/18 Last Taken 08/23/17 21:00 500] Atorvastatin [Lipitor] 10 mg PO HS tab 08/25/17 [Rx Confirmed 05/29/18 Last Taken Unknown] Ferrous Sulfate 325 mg PO BIDCC tab 08/25/17 [Rx Confirmed 05/29/18 Last Taken Unknown] Ipratropium/Albuterol [Duoneb] 3 ml NEB Q4HP PRN #90 ampul.neb 08/25/17 [Rx Confirmed 05/29/18 Last Taken Unknown] fluticasone 110 mcg/actuation HFA aerosol inhaler 2 puff INHALATION BID 09/03/17 [History Confirmed 05/29/18 Last Taken Unknown] levothyroxine 150 mcg tablet 150 mcg PO QDAY 90 Days #90 tab 12/30/17 [Rx Confirmed 05/29/18 Last Taken Unknown] cyanocobalamin (vit B-12) 1,000 mcg/mL injection solution 1,000 mcg IM QMONTH #12 ml 02/25/18 [Rx Confirmed 05/29/18 Last Taken Unknown] hydrocodone 5 mg-acetaminophen 325 mg tablet 1 tab PO Q6H PRN #90 tab 03/27/18 [Rx Confirmed 05/29/18 Last Taken Unknown] allopurinol 100 mg tablet 100 mg PO QDAY #90 tab 04/01/18 [Rx Confirmed 05/29/18 Last Taken Unknown] torsemide 20 mg tablet 40 mg PO BID 90 Days #360 tab 04/14/18 [Rx Confirmed 05/29/18 Last Taken Unknown] darbepoetin fatou 100 mcg/mL in polysorbate injection 100 mcg SUB-Q Q2W PRN ml 05/05/18 [History Confirmed 05/29/18 Last Taken Unknown] metolazone 2.5 mg tablet 2.5 mg PO .QOD #30 tab 05/19/18 [Rx Confirmed 05/29/18 Last Taken Unknown] Ipratropium/Albuterol [Duoneb] 3 ml NEB Q4HRT PRN 05/29/18 [History Confirmed 05/29/18 Last Taken Unknown] iron sucrose 200 mg iron/10 mL intravenous solution 200 mg IV QWEEK #50 ml 0 05/29/18 [Rx Confirmed 05/29/18 Last Taken Unknown] syringe with needle 3 mL 25 x 1 1/2" 0 dose .ROUTE .MEDSUPPLY 05/29/18 [History Confirmed 05/29/18 Last Taken Unknown] Diltiazem [Cardizem Cd] 240 mg PO DAILY 05/30/18 [History Confirmed 05/30/18 Last Taken Unknown] Warfarin [Coumadin] 2.5 mg PO DAILY 05/30/18 [History Confirmed 05/30/18 Last Taken Unknown] Fluconazole [Diflucan] 100 mg PO DAILY #3 tab 06/01/18 [Rx Last Taken Unknown] predniSONE [Prednisone] 20 mg PO QAMCC #5 tab 06/01/18 [Rx Last Taken Unknown] Home Medications albuterol sulfate HFA 90 mcg/actuation aerosol inhaler See Rx Instructions .ROUTE .COMPLEX #8 g 10/13/15 [Rx Confirmed 05/29/18 Last Taken 08/24/17 09:00] docusate sodium 100 mg capsule 100 mg PO BID #60 cap 10/02/16 [Rx Confirmed 05/29/18 Last Taken 08/24/17 09:00] sennosides 8.6 mg tablet 8.6 mg PO QDAY 10/29/16 [History Confirmed 05/29/18 Last Taken 08/23/17 21:00] omeprazole 40 mg capsule,delayed release 40 mg PO BID 30 Days #60 cap 05/03/17 [History Confirmed 05/29/18 Last Taken 08/24/17 06:00] Acetaminophen [Acetaminophen Extra Strength] 500 mg PO HSP PRN 08/24/17 [History Confirmed 05/29/18 Last Taken 08/23/17 21:00 500] Atorvastatin [Lipitor] 10 mg PO HS tab 08/25/17 [Rx Confirmed 05/29/18 Last Taken Unknown] Ferrous Sulfate 325 mg PO BIDCC tab 08/25/17 [Rx Confirmed 05/29/18 Last Taken Unknown] Ipratropium/Albuterol [Duoneb] 3 ml NEB Q4HP PRN #90 ampul.neb 08/25/17 [Rx Confirmed 05/29/18 Last Taken Unknown] fluticasone 110 mcg/actuation HFA aerosol inhaler 2 puff INHALATION BID 09/03/17 [History Confirmed 05/29/18 Last Taken Unknown] levothyroxine 150 mcg tablet 150 mcg PO QDAY 90 Days #90 tab 12/30/17 [Rx Confirmed 05/29/18 Last Taken Unknown] cyanocobalamin (vit B-12) 1,000 mcg/mL injection solution 1,000 mcg IM QMONTH #12 ml 02/25/18 [Rx Confirmed 05/29/18 Last Taken Unknown] hydrocodone 5 mg-acetaminophen 325 mg tablet 1 tab PO Q6H PRN #90 tab 03/27/18 [Rx Confirmed 05/29/18 Last Taken Unknown] allopurinol 100 mg tablet 100 mg PO QDAY #90 tab 04/01/18 [Rx Confirmed 05/29/18 Last Taken Unknown] torsemide 20 mg tablet 40 mg PO BID 90 Days #360 tab 04/14/18 [Rx Confirmed 05/29/18 Last Taken Unknown] darbepoetin fatou 100 mcg/mL in polysorbate injection 100 mcg SUB-Q Q2W PRN ml 05/05/18 [History Confirmed 05/29/18 Last Taken Unknown] metolazone 2.5 mg tablet 2.5 mg PO .QOD #30 tab 05/19/18 [Rx Confirmed 05/29/18 Last Taken Unknown] Ipratropium/Albuterol [Duoneb] 3 ml NEB Q4HRT PRN 05/29/18 [History Confirmed 05/29/18 Last Taken Unknown] iron sucrose 200 mg iron/10 mL intravenous solution 200 mg IV QWEEK #50 ml 05/29/18 [Rx Confirmed 05/29/18 Last Taken Unknown] syringe with needle 3 mL 25 x 1 1/2" 0 dose .ROUTE .MEDSUPPLY 05/29/18 [History Confirmed 05/29/18 Last Taken Unknown] Diltiazem [Cardizem Cd] 240 mg PO DAILY 05/30/18 [History Confirmed 05/30/18 Last Taken Unknown] Warfarin [Coumadin] 2.5 mg PO DAILY 05/30/18 [History Confirmed 05/30/18 Last Taken Unknown] Fluconazole [Diflucan] 100 mg PO DAILY #3 tab 06/01/18 [Rx Last Taken Unknown] predniSONE [Prednisone] 20 mg PO [facility] #5 tab 06/01/18 [Rx Last Taken Unknown] Medical - DS: Hosp Hospital course: Ms. Em is a 78 year old F Presents with shortness of breath and cough. Patient states yesterday morning when she woke up she noticed that she was short of breath and weak. And later on developed worsening cough. She does have a cough at baseline but is progressively worse over the past 24 hours. She also has chronic wheezing but that is worse as well. She is does not require any oxygen at home. Been so weak that she fell. She has a history of history of asthmatic bronchitis and is told that she has chronic bronchitis. She has a chills and some nausea. Her daughter had flulike symptoms since New Year's and was found to have influenza A. In the ER patient was found to be hypoxic at 88% on room air rapid flu test showed that she was positive for influenza A. She received 3 DuoNeb treatments with improvement in her distress she is more comfortable now and is on 2-3 L nasal cannula. 05/30 Has sputum reduction upon coughing but sputum is now white clear. Feeling better overall. Feels like her shortness of breath is near normal although she is on oxygen. No overnight events. 05/31-patient doing well. Complains of vaginal itching. No overnight events. On 2 L oxygen. Creatinine stable at 2.4. Able to ambulate with assistance. Ongoing physical therapy. Anticipate discharge in 24-48 hours. Start fluconazole. 06/01-patient doing better. Now on room air. On empiric coverage and vancomycin for GPC bacteremia. Final culture sensitivities pending. No overnight fever or chills. Possible discharge in 24 hours if cultures prove been contaminant. No fever or signs of active infection. Vaginal thrush currently on fluconazole and feeling better. 06/02 Slept well. Continues to feel better. Cough appears to baseline and feels like her shortness of breath is near baseline. No new complaints. Stable for discharge Discharge diagnosis: Influenza A acute hypoxic respiratory failure asthma exacerbation CKD Secondary discharge diagnosis: CKD stage IV chronic anemia chronic A. fib BRENNA history of CVA hypothyroidism chronic pain obesity - Time Spent with Patient Total time spent providing and/or coordinating discharge services: Greater than 30 minutes Medical - DS: Exam - Constitutional Vitals: Vital Signs Temp Pulse Pulse Resp BP Pulse Ox 06/01/18 11:13 98.1 F 20 145/79 93 06/01/18 07:05 84 16 92 06/01/18 06:41 97.1 F 20 149/68 95 06/01/18 03:47 94 06/01/18 03:44 97 F 77 22 155/73 90 05/31/18 23:33 80 18 05/31/18 22:50 97.7 F 77 22 152/66 91 05/31/18 19:53 84 20 05/31/18 19:07 97.5 F 74 22 145/64 91 05/31/18 16:56 95 05/31/18 15:59 97.5 F 74 20 135/74 92 05/31/18 15:02 78 18 05/31/18 14:31 82 91 05/31/18 13:11 22 91 Intake and Output 05/31/18 06/01/18 06/01/18 21:59 05:59 13:59 Intake Total 800 / 1240 200 / 1240 240 / 240 Output Total 400 / 1350 100 / 1350 200 / 200 Balance 400 / -110 100 / -110 40 / 40 Intake: Oral 800 / 1240 200 / 1240 240 / 240 Output: Void Amount 400 / 1350 100 / 1350 200 / 200 Other: Meal Breakfast Percent of Meal Consumed 100% Feeding Ability Independent # Voids 1 1 Weight 109.316 kg Medical - DS: Data Labs on day of discharge: Labs from last 24 hours 06/01/18 06/01/18 06:20 04:32 PT 15.4 H INR 1.2 H Sodium 137 Potassium 2.8 L* Chloride 92 L Carbon Dioxide 28 Anion Gap 17.0 H BUN 78 H Creatinine 2.5 H GFR Calculation 18 Glucose 124 H Uric Acid 12.3 H Calcium 8.9 Phosphorus 3.8 Magnesium 1.7 Total Bilirubin 0.2 Direct Bilirubin < 0.2 GGT 57 H AST 33 ALT 15 Alkaline Phosphatase 114 Lactate Dehydrogenase 269 H Total Protein 7.9 Albumin 3.8 Globulin 4.1 H Albumin/Globulin Ratio 0.9 L Triglycerides 114 Preliminary micro results at discharge 05/31/18 04:40 Blood Culture - Preliminary Blood 05/31/18 04:54 Blood Culture - Preliminary Blood 05/29/18 18:40 Blood Culture - Preliminary Blood 05/29/18 20:00 Blood Culture - Preliminary Blood Gram positive cocci Medical - DS: A/P - Patient/Caregiver Discharge Instructions Activity: increase activity as tolerated Diet: Cardiac Prescriptions: Fluconazole [Diflucan] 100 mg PO DAILY #3 tab Oseltamivir Phosphate 30 mg PO DAILY #1 cap predniSONE [Prednisone] 20 mg PO [facility] #5 tab - Follow up Plan Follow up with: Jg Zacarias DO [Primary Care Provider] - Disposition: Home Health Service Prognosis: Fair Rehab Potential: Fair Medical - DS: Qual - VTE Deep Vein Thrombosis/Pulmonary Embolism Present on Admission: No
--- NOTE | 2018-06-01 11:54 | Internal Med Progress Note ---
Medical - PN: Subj Patient information: Note initiated : 06/01/18 at 11:52 am Service Date, if different from initiated Date: [] Patient: Dania Em a 78 y/o F admitted on 05/29/18 for sob, cough, weakness, fever. Chief Complaint: [] Interval history: Ms. Em is a 78 year old F Presents with shortness of breath and cough. Patient states yesterday morning when she woke up she noticed that she was short of breath and weak. And later on developed worsening cough. She does have a cough at baseline but is progressively worse over the past 24 hours. She also has chronic wheezing but that is worse as well. She is does not require any oxygen at home. Been so weak that she fell. She has a history of history of asthmatic bronchitis and is told that she has chronic bronchitis. She has a chills and some nausea. Her daughter had flulike symptoms since New Year and was found to have influenza A. In the ER patient was found to be hypoxic at 88% on room air rapid flu test showed that she was positive for influenza A. She received 3 DuoNeb treatments with improvement in her distress she is more comfortable now and is on 2-3 L nasal cannula. 1 Has sputum reduction upon coughing but sputum is now white clear. Feeling better overall. Feels like her shortness of breath is near normal although she is on oxygen. No overnight events. 05/31-patient doing well. Complains of vaginal itching. No overnight events. On 2 L oxygen. Creatinine stable at 2.4. Able to ambulate with assistance. Ongoing physical therapy. Anticipate discharge in 24-48 hours. Start fluconazole. 06/01-patient doing better. Now on room air. On empiric coverage and vancomycin for GPC bacteremia. Final culture sensitivities pending. No overnight fever or chills. Possible discharge in 24 hours if cultures prove been contaminant. No fever or signs of active infection. Vaginal thrush currently on fluconazole and feeling better. - Constitutional Vitals: Vital Signs Temp Pulse Resp BP Pulse Ox 98.1 F 84 20 145/79 93 06/01/18 11:13 06/01/18 07:05 06/01/18 11:13 06/01/18 11:13 06/01/18 11:13 Period Temp Pulse Resp BP Sys/Chavez Pulse Ox Last 24 Hr 97 F-98.1 F 74-84 16-22 135-155/64-79 90-95 Intake and Output 05/31/18 06/01/18 06/01/18 21:59 05:59 13:59 Intake Total 800 / 1240 200 / 1240 240 / 240 Output Total 400 / 1350 100 / 1350 200 / 200 Balance 400 / -110 100 / -110 40 / 40 Weight 109.316 kg Intake & Output: Intake & Output 05/31/18 06/01/18 06/01/18 21:59 05:59 13:59 Intake Total 800 / 1240 200 / 1240 240 / 240 Output Total 400 / 1350 100 / 1350 200 / 200 Balance 400 / -110 100 / -110 40 / 40 Weight 109.316 kg Intake: Oral 800 / 1240 200 / 1240 240 / 240 Output: Void Amount 400 / 1350 100 / 1350 200 / 200 Other: Meal Breakfast Percent of Meal Consumed 100% Feeding Ability Independent # Voids 1 1 Exam: General: Alert, Awake, No acute Distress, obese Eyes/N/T: EOMI, Head/Neck: neck supple, CV: RRR, No murmurs, Pulm: b/l rhonchi and wheezing Abd: soft, nontender, +BS x4 Ext: no clubbing/cyanosis, 2+ chronic b/l LE edema Neuro: Alert, no focal deficits, moves all extremities, Skin: warm/dry Medical - PN: Obj Da - Labs CBC & Chem 7: 05/31/18 04:40 06/01/18 06:20 Labs: Abnormal Lab Results 06/01/18 06/01/18 05/31/18 06:20 04:32 04:40 RBC Hgb Hct RDW Gran % Lymph % (Auto) [place]helps % (Auto) Lymph # (Auto) [place] # (Auto) Lymphocytes % Monocytes % (Manual) RBC Morphology Anisocytosis PT 15.4 H 16.0 H INR 1.2 H 1.3 H Potassium 2.8 L* Chloride 92 L Anion Gap 17.0 H BUN 78 H Creatinine 2.5 H Glucose 124 H Uric Acid 12.3 H Calcium GGT 57 H Alkaline Phosphatase Lactate Dehydrogenase 269 H Globulin 4.1 H Albumin/Globulin Ratio 0.9 L Urine Protein 05/31/18 05/31/18 05/30/18 04:40 04:40 05:21 RBC 2.67 L Hgb 7.7 L Hct 23.6 L RDW 16.9 H Gran % 92.6 H Lymph % (Auto) 3.9 L [place]ps % (Auto) Lymph # (Auto) 0.3 L [place] # (Auto) Lymphocytes % Monocytes % (Manual) RBC Morphology Anisocytosis PT INR Potassium Chloride 95 L 95 L Anion Gap 17.0 H BUN 71 H 59 H Creatinine 2.4 H 2.1 H Glucose 175 H 204 H Uric Acid 10.2 H Calcium 8.3 L GGT 54 H Alkaline Phosphatase Lactate Dehydrogenase Globulin 4.0 H Albumin/Globulin Ratio 0.9 L Urine Protein 05/30/18 05/30/18 05/29/18 05:21 05:21 21:30 RBC 2.57 L Hgb 7.4 L Hct 22.9 L RDW 17.0 H Gran % 94.3 H Lymph % (Auto) 5.0 L [place]ps % (Auto) 0.7 L Lymph # (Auto) 0.2 L Phelps # (Auto) 0 L Lymphocytes % Monocytes % (Manual) RBC Morphology Anisocytosis PT 18.5 H 19.7 H INR 1.6 H 1.7 H Potassium Chloride Anion Gap BUN Creatinine Glucose Uric Acid Calcium GGT Alkaline Phosphatase Lactate Dehydrogenase Globulin Albumin/Globulin Ratio Urine Protein 05/29/18 05/29/18 05/29/18 18:57 18:40 18:40 RBC 2.70 L Hgb 7.8 L Hct 24.0 L RDW 17.0 H Gran % Lymph % (Auto) [place]ps % (Auto) Lymph # (Auto) [place]ps # (Auto) Lymphocytes % 5 L Monocytes % (Manual) 14 H RBC Morphology Abnorm A Anisocytosis 1+ A PT INR Potassium Chloride 95 L Anion Gap BUN 63 H Creatinine 2.3 H Glucose 112 H Uric Acid Calcium GGT Alkaline Phosphatase 129 H Lactate Dehydrogenase Globulin 3.9 H Albumin/Globulin Ratio 0.9 L Urine Protein 30 A Meds: Medications Acetaminophen (Tylenol) 650 mg PO Q6HP PRN PRN Reason: PAIN/FEVER > 101 Last Admin: 05/31/18 20:39 Dose: 650 mg Documented by: Hydrocodone Bitart/Acetaminophen ([place] 5/325mg) 1 tab PO Q6HP PRN PRN Reason: pain Albuterol/Ipratropium (Duoneb) 3 ml NEB Q6HRT PRN PRN Reason: Bronchospasm Albuterol/Ipratropium (Duoneb) 3 ml NEB Q4HRT [facility] Last Admin: 06/01/18 11:40 Dose: 3 ml Documented by: Allopurinol (Zyloprim) 100 mg PO QDAY [facility] Last Admin: 06/01/18 08:40 Dose: 100 mg Documented by: Bisacodyl (Dulcolax) 10 mg PO DAILYP PRN PRN Reason: Constipation Last Admin: 05/31/18 16:50 Dose: 10 mg Documented by: Ceftriaxone Sodium (Rocephin) 1 gm IV Q24H [facility] Last Admin: 06/01/18 08:43 Dose: 1 gm Documented by: Diltiazem HCl (Cardizem Cd) 240 mg PO DAILY [facility] Last Admin: 06/01/18 08:39 Dose: 240 mg Documented by: Docusate Sodium (Colace) 100 mg PO BID [facility] Last Admin: 06/01/18 08:39 Dose: 100 mg Documented by: Enoxaparin Sodium (Lovenox) 80 mg SQ ONCE ONE Stop: 06/01/18 12:01 Famotidine (Pepcid) 20 mg PO HS [facility] Last Admin: 05/31/18 20:31 Dose: 20 mg Documented by: Fluconazole (Diflucan) 100 mg PO DAILY [facility] Last Admin: 06/01/18 08:39 Dose: 100 mg Documented by: Fluticasone Propionate (Flovent Hfa 110mcg) 2 puff INH BID [facility] Last Admin: 06/01/18 08:41 Dose: Not Given Documented by: Vancomycin HCl 1,500 mg/ (Sodium Chloride) 500 mls @ 333.3 mls/hr IV Q24H [facility] Last Admin: 06/01/18 08:54 Dose: 333.3 mls/hr Documented by: Potassium Chloride/Sodium Chloride (Nacl 0.9% W/Kcl 20meq 1000ml) 1,000 mls @ 84 mls/hr IV Q12H [facility] Levothyroxine Sodium (Synthroid) 150 mcg PO QAMAC [facility] Last Admin: 06/01/18 07:29 Dose: 150 mcg Documented by: Metoprolol Tartrate (Lopressor) 5 mg IV Q2HP PRN PRN Reason: Tachyarrhythmias Oseltamivir Phosphate 6 Mg/Ml Oral Solution 1 dose PO DAILY [facility] Stop: 06/03/18 09:01 Last Admin: 06/01/18 08:42 Dose: 1 dose Documented by: Omeprazole (Prilosec) 40 mg PO BIDAC [facility] Last Admin: 06/01/18 07:29 Dose: 40 mg Documented by: Ondansetron HCl (Zofran) 4 mg IV Q4HP PRN PRN Reason: Nausea And Vomiting Prednisone (Prednisone) 20 mg PO QAMCC [facility] Last Admin: 06/01/18 08:39 Dose: 20 mg Documented by: Promethazine HCl (Phenergan) 12.5 mg PO Q6HP PRN PRN Reason: Nausea And Vomiting Senna (Senokot) 1 tab PO QDAY [facility] Last Admin: 06/01/18 08:39 Dose: 1 tab Documented by: Silver Sulfadiazine (Silvadene) 2 dose TOPICAL BID [facility] Last Admin: 06/01/18 10:20 Dose: 2 dose Documented by: Sodium Chloride (Saline Flush) 10 ml IV Q8 [facility] Last Admin: 06/01/18 04:53 Dose: 10 ml Documented by: Torsemide (Demadex) 40 mg PO BIDD [facility] Last Admin: 06/01/18 08:40 Dose: 40 mg Documented by: Vancomycin HCl (Vancomycin Per Pharmacy) 1 order IV [facility] Warfarin Sodium (Coumadin Per Pharmacy) 1 order PO [facility] Medical - PN: A/P - Time Spent With Patient Total time spent is greater than 50% in coordination of care (as documented) at patient's floor/unit and/or counseling patient: - Narrative A/P Narrative: A: *Asthma exacerbation: Secondary to influenza A *Acute hypoxic respiratory failure: -placed on room air this morning, from 3L NC *Influenza A: *GPC in 1/ bottleof of2 blood draws suspected to be contaminate *CKD IV: follows with Sejal *Anemia chronic: Receives Epo *vaginal thrush: started fluconazole *History of chronic atrial fibrillation(PPM): On warfarin and diltiazem *BRENNA: But is noncompliant with CPAP *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
[2018-06-01] MEDS ORDERED: ENOXAPARIN 80 MG/0.8 ML SYRINGE SQ ONE (12:00)
[2018-06-01] MEDS ORDERED: WARFARIN 2.5 MG TABLET PO ONE (14:00)
[2018-06-01] MEDS: NACL 0.9% W/KCL 20MEQ 1,000 ML IV SCH (16:43)
[2018-06-01] MEDS: FAMOTIDINE 20 MG TABLET PO SCH (20:30)
[2018-06-02] MEDS: NACL 0.9% W/KCL 20MEQ 1,000 ML IV SCH ×2 (00:06→03:26)
[2018-06-02] MEDS: IPRATROPIUM/ALBUTEROL 3 ML AMPUL.NEB NEB SCH ×3 (03:25→11:08)
[2018-06-02] MEDS: 0.9 % SODIUM CHLORIDE 10 ML SYRINGE IV SCH (05:28)
[2018-06-02 06:00] LABS: ALT/SGPT 17 U/l (0-40); Albumin 2.9 gm/dL (3.2-5.2); Albumin/Globulin Ratio 0.7 (1.0-2.3); Alkaline Phosphatase 102 U/L (39-117); Bilirubin,Direct < 0.2 mg/dL (0.0-0.3); Blood Urea Nitrogen 81 mg/dl (8-23); Gamma Glutamyl Transpeptidase 64 U/L (5-36); Uric Acid 12.7 mg/dL (2.5-8.0)
[2018-06-02] MEDS: OMEPRAZOLE 20 MG CAPSULE PO SCH (06:58)
[2018-06-02] MEDS: LEVOTHYROXINE 150 MCG TABLET PO SCH (06:58)
--- NOTE | 2018-06-02 07:31 | Internal Med Progress Note ---
Medical - PN: Subj Patient information: Note initiated : 06/02/18 at 7:31 am Service Date, if different from initiated Date: [] Patient: Dania Em a 78 y/o F admitted on 05/29/18 for sob, cough, weakness, fever. Chief Complaint: [] Interval history: Ms. Em is a 78 year old F Presents with shortness of breath and cough. Patient states yesterday morning when she woke up she noticed that she was short of breath and weak. And later on developed worsening cough. She does have a cough at baseline but is progressively worse over the past 24 hours. She also has chronic wheezing but that is worse as well. She is does not require any oxygen at home. Been so weak that she fell. She has a history of history of asthmatic bronchitis and is told that she has chronic bronchitis. She has a chills and some nausea. Her daughter had flulike symptoms since New Year and was found to have influenza A. In the ER patient was found to be hypoxic at 88% on room air rapid flu test showed that she was positive for influenza A. She received 3 DuoNeb treatments with improvement in her distress she is more comfortable now and is on 2-3 L nasal cannula. 05/30 Has sputum reduction upon coughing but sputum is now white clear. Feeling better overall. Feels like her shortness of breath is near normal although she is on oxygen. No overnight events. 05/31-patient doing well. Complains of vaginal itching. No overnight events. On 2 L oxygen. Creatinine stable at 2.4. Able to ambulate with assistance. Ongoing physical therapy. Anticipate discharge in 24-48 hours. Start fluconazole. 06/01-patient doing better. Now on room air. On empiric coverage and vancomycin for GPC bacteremia. Final culture sensitivities pending. No overnight fever or chills. Possible discharge in 24 hours if cultures prove been contaminant. No fever or signs of active infection. Vaginal thrush currently on fluconazole and feeling better. 06/02 Slept well. Continues to feel better. Cough appears to baseline and feels like her shortness of breath is near baseline. No new complaints. Review of Systems: denies headache/fever/chills/nausea/vomiting/chest or abdominal pain/diarrhea. Otherwise see above. - Constitutional Vitals: Vital Signs Temp Pulse Resp BP Pulse Ox 96.0 F L 99 H 20 134/61 93 06/02/18 06:16 06/02/18 07:20 06/02/18 07:20 06/02/18 06:16 06/02/18 07:20 Period Temp Pulse Resp BP Sys/Chavez Pulse Ox Last 24 Hr 96.0 F-98.4 F 81-99 20-24 122-145/61-83 90-95 Intake and Output 06/01/18 06/02/18 06/02/18 21:59 05:59 13:59 Intake Total 1000 / 2540 1300 / 2540 Output Total 700 / 2325 1000 / 2325 Balance 300 / 215 300 / 215 Weight 110.677 kg Intake & Output: Intake & Output 06/01/18 06/02/18 06/02/18 21:59 05:59 13:59 Intake Total 1000 / 2540 1300 / 2540 Output Total 700 / 2325 1000 / 2325 Balance 300 / 215 300 / 215 Weight 110.677 kg Intake: IV 500 / 1400 900 / 1400 NaCl 0.9% W/KCl 20Meq 1000ML 1, 900 / 900 000 ml @ 84 mls/hr IV Q12H [facility] Rx#:[id number] Vancomycin 1,500 mg In Sodium 500 / 500 Chloride 0.9% 500 ml @ 333.3 mls/hr IV Q24H [facility] Rx#: [id number] Oral 500 / 1140 400 / 1140 Output: Urine Catheter Amount 300 / 300 Void Amount / 5 700 / 2024 Other: Urine Appearance Clear Clear Urine Color Pale Bright Yellow Urine Odor Normal Normal Stool Size Small Stool Color Brown Stool Consistency Soft # Voids 1 1 # Bowel Movements 1 1 Exam: General: Alert, Awake, No acute Distress, obese Eyes/N/T: EOMI, Head/Neck: neck supple, CV: RRR, No murmurs, Pulm: mild occasional wheezing Abd: soft, nontender, +BS x4 Ext: no clubbing/cyanosis, 1+ chronic b/l LE edema Neuro: Alert, no focal deficits, moves all extremities, Skin: warm/dry Medical - PN: Obj Da - Labs CBC & Chem 7: 05/31/18 04:40 06/02/18 04:32 Labs: Abnormal Lab Results 06/02/18 06/02/18 06/01/18 04:32 04:32 06:20 RBC Hgb Hct RDW Gran % Lymph % (Auto) Lymph # (Auto) PT 16.3 H INR 1.3 H Potassium 2.8 L* Chloride 92 L Anion Gap 17.0 H BUN 81 H 78 H Creatinine 2.4 H 2.5 H Glucose 124 H Uric Acid 12.7 H 12.3 H Calcium 8.4 L GGT 64 H 57 H Lactate Dehydrogenase 284 H 269 H Albumin 2.9 L Globulin 4.1 H 4.1 H Albumin/Globulin Ratio 0.7 L 0.9 L Triglycerides 166 H 06/01/18 05/31/18 05/31/18 04:32 04:40 04:40 RBC Hgb Hct RDW Gran % Lymph % (Auto) Lymph # (Auto) PT 15.4 H 16.0 H INR 1.2 H 1.3 H Potassium Chloride 95 L Anion Gap 17.0 H BUN 71 H Creatinine 2.4 H Glucose 175 H Uric Acid Calcium GGT Lactate Dehydrogenase Albumin Globulin Albumin/Globulin Ratio Triglycerides 05/31/18 04:40 RBC 2.67 L Hgb 7.7 L Hct 23.6 L RDW 16.9 H Gran % 92.6 H Lymph % (Auto) 3.9 L Lymph # (Auto) 0.3 L PT INR Potassium Chloride Anion Gap BUN Creatinine Glucose Uric Acid Calcium GGT Lactate Dehydrogenase Albumin Globulin Albumin/Globulin Ratio Triglycerides Meds: Medications Acetaminophen (Tylenol) 650 mg PO Q6HP PRN PRN Reason: PAIN/FEVER > 101 Last Admin: 05/31/18 20:39 Dose: 650 mg Documented by: Hydrocodone Bitart/Acetaminophen ([place] 5/325mg) 1 tab PO Q6HP PRN PRN Reason: pain Last Admin: 06/01/18 15:18 Dose: 1 tab Documented by: Albuterol/Ipratropium (Duoneb) 3 ml NEB Q6HRT PRN PRN Reason: Bronchospasm Albuterol/Ipratropium (Duoneb) 3 ml NEB Q4HRT [facility] Last Admin: 06/02/18 07:04 Dose: 3 ml Documented by: Allopurinol (Zyloprim) 100 mg PO QDAY [facility] Last Admin: 06/01/18 08:40 Dose: 100 mg Documented by: Bisacodyl (Dulcolax) 10 mg PO DAILYP PRN PRN Reason: Constipation Last Admin: 05/31/18 16:50 Dose: 10 mg Documented by: Ceftriaxone Sodium (Rocephin) 1 gm IV Q24H [facility] Last Admin: 06/01/18 08:43 Dose: 1 gm Documented by: Diltiazem HCl (Cardizem Cd) 240 mg PO DAILY [facility] Last Admin: 06/01/18 08:39 Dose: 240 mg Documented by: Docusate Sodium (Colace) 100 mg PO BID [facility] Last Admin: 06/01/18 20:29 Dose: Not Given Documented by: Famotidine (Pepcid) 20 mg PO HS [facility] Last Admin: 06/01/18 20:30 Dose: 20 mg Documented by: Fluconazole (Diflucan) 100 mg PO DAILY [facility] Last Admin: 06/01/18 08:39 Dose: 100 mg Documented by: Fluticasone Propionate (Flovent Hfa 110mcg) 2 puff INH BID [facility] Last Admin: 06/01/18 20:30 Dose: Not Given Documented by: Vancomycin HCl 1,500 mg/ (Sodium Chloride) 500 mls @ 333.3 mls/hr IV Q24H [facility] Last Infusion: 06/01/18 17:24 Dose: Infused Documented by: Potassium Chloride/Sodium Chloride (Nacl 0.9% W/Kcl 20meq 1000ml) 1,000 mls @ 84 mls/hr IV Q12H [facility] Last Admin: 06/02/18 03:26 Dose: 84 mls/hr Documented by: Levothyroxine Sodium (Synthroid) 150 mcg PO QAMAC [facility] Last Admin: 06/02/18 06:58 Dose: 150 mcg Documented by: Metoprolol Tartrate (Lopressor) 5 mg IV Q2HP PRN PRN Reason: Tachyarrhythmias Oseltamivir Phosphate 6 Mg/Ml Oral Solution 1 dose PO DAILY [facility] Stop: 06/03/18 09:01 Last Admin: 06/01/18 08:42 Dose: 1 dose Documented by: Omeprazole (Prilosec) 40 mg PO BIDAC [facility] Last Admin: 06/02/18 06:58 Dose: 40 mg Documented by: Ondansetron HCl (Zofran) 4 mg IV Q4HP PRN PRN Reason: Nausea And Vomiting Prednisone (Prednisone) 20 mg PO QAC [facility] Last Admin: 06/01/18 08:39 Dose: 20 mg Documented by: Promethazine HCl (Phenergan) 12.5 mg PO Q6HP PRN PRN Reason: Nausea And Vomiting Senna (Senokot) 1 tab PO QDAY [facility] Last Admin: 06/01/18 08:39 Dose: 1 tab Documented by: Silver Sulfadiazine (Silvadene) 2 dose TOPICAL BID [facility] Last Admin: 06/01/18 20:36 Dose: 2 dose Documented by: Sodium Chloride (Saline Flush) 10 ml IV Q8 [facility] Last Admin: 06/02/18 05:28 Dose: Not Given Documented by: Torsemide (Demadex) 40 mg PO BIDD [facility] Last Admin: 06/01/18 15:19 Dose: 40 mg Documented by: Vancomycin HCl (Vancomycin Per Pharmacy) 1 [place] [facility]far[place] Sodium (Coumadin Per Pharmacy) 1 order PO [facility] [place] - PN: A/P - Time Spent With Patient Total time spent is greater than 50% in coordination of care (as documented) at patient's floor/unit and/or counseling patient: - Narrative A/P Narrative: A: *Asthma exacerbation: Secondary to influenza A *Acute hypoxic respiratory failure: -placed on room air yesterday, from 3L NC *Influenza A: *GPC in 1/ bottleof of2 blood draws suspected to be contaminate *CKD IV: follows with Sejal *Anemia chronic: Receives Epo *vaginal thrush: started fluconazole *History of chronic atrial fibrillation(PPM): On warfarin and diltiazem *BRENNA: But is noncompliant with CPAP *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
[2018-06-02] MEDS: TORSEMIDE 10 MG TABLET PO SCH (08:18)
[2018-06-02] MEDS: DILTIAZEM 240 MG CAP.XL.24H PO SCH (08:18)
[2018-06-02] MEDS: DOCUSATE SODIUM 100 MG CAPSULE PO SCH (08:19)
[2018-06-02] MEDS: cefTRIAXone 1 GM VIAL IV SCH (08:19)
[2018-06-02] MEDS: ALLOPURINOL 100 MG TABLET PO SCH (08:19)
[2018-06-02] MEDS: SENNOSIDES 1 TABLET PO SCH (08:19)
[2018-06-02] MEDS: FLUCONAZOLE 100 MG TABLET PO SCH (08:19)
[2018-06-02] MEDS: predniSONE 20 MG TABLET PO SCH (08:19)
[2018-06-02] MEDS: FLUTICASONE HFA 110MCG INHALER INH SCH (08:19)
[2018-06-02] MEDS: VANCOMYCIN 1,500 MG in 0.9 % SODIUM CHLORIDE 500 ML IV SCH (09:24)
[2018-06-02] MEDS: OSELTAMIVIR PHOSPHATE 6 MG/ML ORAL SOLUTION PO SCH (10:10)
[2018-06-02] MEDS: SILVER SULFADIAZINE CREAM.TOP 25GM TOPICAL SCH (11:32)
--- NOTE | 2018-06-02 12:40 | General Surgery Progress Note ---
Subjective Patient reports: no new complaints, other (Feels well. Keen to go home.) Narrative: Note initiated : 06/02/18 at 12:38 pm Service Date, if different from initiated Date: [] Patient: Dania Em 78 y/o F admitted on 05/29/18 for sob, cough, weakness, fever. Chief Complaint: [] Objective Temp Pulse Resp BP Pulse Ox 98.2 F 97 H 18 131/67 92 06/02/18 11:02 06/02/18 11:17 06/02/18 11:17 06/02/18 11:02 06/02/18 11:02 AVSS. No changes SYLVIA. L/E: IMPROVING moisture dermatitis Sacral, perineal and posterior thighs. Ambulating better with FWW - Additional Data Intake & Output - Last 24 hours: Intake & Output 05/31/18 06/01/18 06/02/18 06/03/18 05:59 05:59 05:59 05:59 Intake Total 1470 / 1470 1240 / 1240 2540 / 2540 736 / 736 Output Total 900 / 900 1350 / 1350 2325 / 2325 100 / 100 Balance 570 / 570 -110 / -110 215 / 215 636 / 636 Weight 266 lb 3.2 oz 241 lb 244 lb - Labs 05/31/18 04:40 06/02/18 04:32 Diabetes panel 06/02/18 Range/Units 04:32 Sodium 140 (133-145) mmol/L Potassium 3.6 (3.3-5.1) mmol/L Chloride 99 (96-108) mmol/L Carbon Dioxide 26 (22-30) mmol/L BUN 81 H (8-23) mg/dl Creatinine 2.4 H (0.6-1.1) mg/dl Glucose 98 (70-105) mg/dL Calcium 8.4 L (8.6-10.4) mg/dl AST 37 (0-37) U/l ALT 17 (0-40) U/l Alkaline Phosphatase 102 (39-117) U/L Total Protein 7.0 (5.9-8.4) gm/dL Albumin 2.9 L (3.2-5.2) gm/dL Triglycerides 166 H (<150) mg/dl Calcium panel 06/02/18 Range/Units 04:32 Calcium 8.4 L (8.6-10.4) mg/dl Phosphorus 3.2 (2.7-4.5) mg/dL Albumin 2.9 L (3.2-5.2) gm/dL Pituitary panel 06/02/18 Range/Units 04:32 Sodium 140 (133-145) mmol/L Potassium 3.6 (3.3-5.1) mmol/L Chloride 99 (96-108) mmol/L Carbon Dioxide 26 (22-30) mmol/L BUN 81 H (8-23) mg/dl Creatinine 2.4 H (0.6-1.1) mg/dl Glucose 98 (70-105) mg/dL Calcium 8.4 L (8.6-10.4) mg/dl Adrenal panel 06/02/18 Range/Units 04:32 Sodium 140 (133-145) mmol/L Potassium 3.6 (3.3-5.1) mmol/L Chloride 99 (96-108) mmol/L Carbon Dioxide 26 (22-30) mmol/L BUN 81 H (8-23) mg/dl Creatinine 2.4 H (0.6-1.1) mg/dl Glucose 98 (70-105) mg/dL Calcium 8.4 L (8.6-10.4) mg/dl Total Bilirubin 0.2 (0.0-1.0) mg/dL AST 37 (0-37) U/l ALT 17 (0-40) U/l Alkaline Phosphatase 102 (39-117) U/L Total Protein 7.0 (5.9-8.4) gm/dL Albumin 2.9 L (3.2-5.2) gm/dL Assessment and Plan (1) Dermatitis associated with moisture Problem details: Assessment: Moisture associated dermatitis of perineal and posterior thigh areas. Plan: Local wound care, Off laoding, Physical therapy and topical silvadene creme If discharged, follow up at wound care center in ONE week. Status: Chronic Current Visit: Yes - Time Spent With Patient Total time spent is greater than 50% in coordination of care (as documented) at patient's floor/unit and/or counseling patient: Assessment: Patient seen with Crystal TURNER and wounds examined. Satisfactory progress, OK for discharge home with instructions. F/U at the wound care center in ONE week. 15 - 24 minutes
[2018-06-02] MEDS ORDERED: PNEUMOCOCCAL 23-VAL P-SAC VAC 0.5 ML SYRINGE IM ONE (12:45)
== END 2018-06-02 12:55 | disposition home health service (06) | DRG 193 ==
LOC: ED 18:11 → MEDSUR 22:17
PROVIDERS: ADMIT Internal Medicine; ATTEND Internal Medicine

== ENCOUNTER 2019-06-17 10:06 | Inpatient (IN) ==
--- NOTE | 2019-06-17 10:42 | Emergency Department Note ---
SOB HPI - General Chief Complaint: Shortness of Breath/Dyspnea Stated Complaint: SOB, Shingles Time Seen by Provider: 06/17/19 10:33 Source: patient, EMS Mode of arrival: wheelchair Limitations: no limitations - History of Present Illness This patient comes in for shortness of breath. She was sent May 29 to [place] for perforated ulcer had surgery in 13 days in the hospital. She came back down here to a swing bed been aspirated and had to go back to [place] and was discharged yesterday to come home. During the night daughter thinks she may have aspirated again. She had some shortness of breath and wheezing and responded to a DuoNeb treatment at home about 4 AM. She has responded again to a DuoNeb here and feels a little better. She does has have a history of COPD. She has had slight cough but no fever chills. - Related Data Home Medications Medication Instructions Recorded Confirmed Ipratropium/Albuterol [Duoneb] 3 ml NEB Q4HP PRN 05/29/18 06/09/19 ascorbic acid (vitamin C) 500 mg 500 mg PO DAILY cap 09/17/18 06/09/19 capsule Acetaminophen [Tylenol] 650 mg PO Q4HP PRN 06/09/19 06/09/19 Bisacodyl [Dulcolax] 10 mg MA DAILYP PRN 06/09/19 06/09/19 Calcitriol [Rocaltrol] 0.25 mcg PO BID 06/09/19 06/09/19 Diltiazem [Cardizem Cd] 360 mg PO DAILY 06/09/19 06/09/19 Epoetin Connor-Epbx [Retacrit] 10,000 unit IJ .3X/WEEK 06/09/19 06/09/19 Ferrous Sulfate 325 mg PO BIDCC 06/09/19 06/09/19 Fluticasone Propion/Salmeterol 1 puff INH BID 06/09/19 06/09/19 [Fluticasone-Salmeterol 100-50] HYDROcodone/ACETAMINOPHEN [[place] 1 tab PO Q6HP PRN 06/09/19 06/09/19 5-325 Tablet] Insulin Glargine, Human [Lantus] 20 unit SQ DAILY 06/09/19 06/09/19 Insulin Lispro [HumaLOG] 0 unit SQ ACHS 06/09/19 06/09/19 Lactobacillus [Culturelle] 1 cap PO BID 06/09/19 06/09/19 Levothyroxine Sodium [Synthroid] 150 mcg PO QAMAC 06/09/19 06/09/19 Lidocaine [Lidoderm] 2 patch TOPICAL DAILY@1000 06/09/19 06/09/19 Magnesium Oxide 400 mg PO BID 06/09/19 06/09/19 Melatonin 3 mg PO HS 06/09/19 06/09/19 Methocarbamol [Robaxin] 500 mg PO Q8HP PRN 06/09/19 06/09/19 Metoprolol Succinate [Toprol Xl] 25 mg PO DAILY 06/09/19 06/09/19 Multivit,Ther Iron,Ca,FA & Min 1 tab PO DAILY 06/09/19 06/09/19 [Multivitamin W/Minerals] Omeprazole [PriLOSEC] 40 mg PO BIDAC 06/09/19 06/09/19 Ondansetron [Zofran ODT] 4 mg SL Q6HP PRN 06/09/19 06/09/19 Potassium Chloride [Kdur] 40 meq PO QAMCC 06/09/19 06/09/19 Sennosides/Docusate Sodium [Senna 2 tab PO DAILY 06/09/19 06/09/19 Plus 8.6-50 mg Tablet] Sevelamer [Renvela] 800 mg PO TIDCC 06/09/19 06/09/19 Spironolactone [Aldactone] 25 mg PO DAILY 06/09/19 06/09/19 Torsemide [Demadex] 40 mg PO DAILY 06/09/19 06/09/19 sitaGLIPtin [Januvia] 25 mg PO DAILY 06/09/19 06/09/19 Previous Rx's Medication Instructions Recorded Atorvastatin [Lipitor] 10 mg PO HS tab 08/25/17 allopurinol 100 mg tablet 100 mg PO QDAY #90 tab 01/05/19 cyanocobalamin (vitamin B-12) 1,000 mcg IM QMONTH #12 ml 03/31/19 1,000 mcg/mL injection solution warfarin 5 mg tablet 5 mg PO QDAY #90 tab 05/25/19 Allergies Allergy/AdvReac Type Severity Reaction Status Date / Time adhesive Allergy Mild Blister Verified 05/29/19 17:34 Review of Systems All systems ED: reviewed and negative except as stated. Past Medical History - Past Medical History ON LICENSE OF [facility] Narrative: Medical History (Last Reviewed 03/17/19 @ 08:22 by Jg Zacarias DO) Anemia due to stage 4 chronic kidney disease treated with darbepoetin (Chronic) Hypertension (Chronic) Anemia due to chronic kidney disease (Chronic) Chronic gastrointestinal bleeding (Chronic) Bronchiectasis (Chronic) Large hiatal hernia (Chronic) CVA (cerebral vascular accident) (Chronic) Spinal stenosis at L4-L5 level (Chronic) Acute bronchitis (Acute) Syncope (Acute) Bradycardia (Acute) Hyperuricemia (Chronic) Shoulder pain (Acute) Long-term current use of steroids (Acute) Polymyalgia rheumatica syndrome (Ruled-out) 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) Venous stasis (Chronic) Obstructive sleep apnea syndrome (Chronic) Secondary hyperparathyroidism of renal origin (Chronic) Hypertensive renal disease (Chronic) Chronic kidney disease, stage IV (severe) (Chronic) Vitreous degeneration (Chronic) Vitamin D deficiency (Chronic) Sleep apnea (Chronic) Restless leg syndrome (Chronic) Pulmonary hypertension (Chronic) Pulmonary embolism (Chronic) Prediabetes (Chronic) Osteopenia (Chronic) Osteoarthritis (Chronic) Nuclear sclerosis (Chronic) Morbid obesity (Chronic) Hypothyroidism (Chronic) Hypertension, essential (Chronic) Hyperparathyroidism, secondary renal (Chronic) Hyperkalemia (Chronic) Gout (Chronic) Gastroesophageal reflux (Chronic) Edema (Chronic) Diastolic dysfunction (Chronic) COPD (chronic obstructive pulmonary disease) (Chronic) Kidney disease, chronic, stage III (moderate, EGFR 30-59 ml/min) (Chronic) Asthma (Chronic) Anemia (Chronic) Thyroid disease (Acute) Cellulitis (Ruled-out) Blepharitis (Inactive) Cellulitis of left arm (Inactive) Deep vein thrombosis (Inactive) tank terminal gauger current use of anticoagulant (Inactive) Thrombosis (Inactive) Visual disturbances (Inactive) Past Surgical History (Last Reviewed 03/17/19 @ 08:22 by Jg Zacarias DO) Status post total abdominal hysterectomy and bilateral salpingo-oophorectomy (T AH-BSO) (Chronic) H/O: section (Acute) S/P laser cataract surgery (Acute) S/P placement of cardiac pacemaker (Acute) Total knee replacement status (Acute) History of esophagogastroduodenoscopy (EGD) (Chronic 08/06/17) History of section (Inactive) History of dilation and curettage (Inactive) History of esophagogastroduodenoscopy (Inactive) History of knee replacement (Inactive) Hx of colonoscopy (Inactive) Family History (Last Reviewed 03/17/19 @ 08:22 by Jg Zacarias DO) Unknown Diabetes mellitus Glaucoma Cardiac disease Essential hypertension Gout Father MVA (motor vehicle accident) Medical history: Reports: arthritis, asthma, atrial fibrillation, CHF, COPD, CVA, DM, GERD, hypertension, osteoporosis, pulmonary embolus, renal disease, thyroid disease, other Surgical history ED: Reports: orthopedic, other - Social History smoking status: Never smoker Alcohol use: Reports: None Drug use: Reports: none Physical Exam Limitations: no limitations General appearance: alert Head: atraumatic Eye: Present: normal appearance ENT: Present: normal exam Neck: Present: normal inspection Chest: Present: normal inspection Respiratory: Present: rales/crackles, wheezes Cardiovascular: Present: regular rate, normal rhythm, normal heart sounds Abdominal: Present: soft. Absent: distention, tenderness Neurological: Present: alert Psychiatric: Present: normal affect Skin: Present: warm, dry Course Vital Signs Temperature 98.3 F 06/17/19 10:08 Pulse Rate 113 H 06/17/19 10:08 Respiratory Rate 21 06/17/19 10:08 Blood Pressure 149/126 06/17/19 10:08 Pulse Oximetry (%) 96 06/17/19 10:08 Temperature 98.3 F 06/17/19 10:08 Pulse Rate 81 06/17/19 14:02 Respiratory Rate 23 H 06/17/19 14:02 Blood Pressure 143/67 06/17/19 14:02 Pulse Oximetry (%) 99 06/17/19 14:02 Shortness of Breath/Dyspnea - MDM Narrative Medical decision making narrative: Chest x-ray was suggestive of heart failure with a stable infiltrate over the last few weeks. We will do CT of chest to see if there is some new pneumonia. Patient responded to a DuoNeb treatment and we started diuresis as well. Rivera catheter was placed and she will be admitted to the hospital by Dr. Weber. Her INR was bray up from 8 yesterday. She has not received Coumadin 3 days and does not have any evidence of bleeding. - Lab Data Lab results reviewed: Yes I reviewed the patient's lab results. Result diagrams: 06/17/19 11:02 06/17/19 11:02 Lab Results 06/17/19 06/17/19 06/17/19 Range/Units 11:02 11:02 11:02 WBC 10.3 (4.50-11.00) K/mcL RBC 2.62 L (3.59-5.38) M/mcL Hgb 7.5 L (11.2-15.7) g/dL Hct 25.2 L (34.1-44.9) % MCV 96.2 (80.0-100.0) fL MCH 28.6 (26.0-34.0) pg MCHC 29.8 L (31.0-36.0) g/dL RDW 18.3 H (11.5-14.5) % Plt Count 240 (140-440) K/mcL MPV 10.8 H (7.4-10.4) fL Gran % 88.6 H (38.0-78.0) % Lymph % (Auto) 4.7 L (15.5-49.0) % [place] % (Auto) 6.6 (1.0-12.0) % Eos % (Auto) 0 (0.0-7.0) % Baso % (Auto) 0.1 (0.0-2.0) % Gran # 9.10 H (1.80-8.00) K/mcL Lymph # (Auto) 0.48 L (1.50-4.80) K/mcL [place] # (Auto) 0.68 (0.10-0.90) K/mcL Eos # (Auto) 0 (0.00-0.70) K/mcL Baso # (Auto) 0.01 (0.00-0.30) K/mcL PT 79.7 H (11.9-14.5) sec INR 10.4 H* (0.9-1.1) Sodium 143 (133-145) mmol/L Potassium 4.0 (3.3-5.1) mmol/L Chloride 100 (96-108) mmol/L Carbon Dioxide 24 (22-30) mmol/L Anion Gap 19.0 H (8-16) BUN 61 H (8-23) mg/dl Creatinine 3.5 H (0.6-1.1) mg/dl GFR Calculation 12 Glucose 162 H (70-105) mg/dL Calcium 9.9 (8.6-10.4) mg/dl Total Bilirubin 0.2 (0.0-1.0) mg/dL AST 12 (0-37) U/l ALT 16 (0-40) U/l Alkaline Phosphatase 81 (39-117) U/L NT-Pro-B Natriuret Pep 8540.0 H (0-450) pg/ml Total Protein 6.9 (5.9-8.4) gm/dL Albumin 4.2 (3.2-5.2) gm/dL Globulin 2.7 (2.2-3.7) gm/dL Albumin/Globulin Ratio 1.6 (1.0-2.3) - Radiology Data Radiology results reviewed: Yes I reviewed the patient's radiology results. Disposition Pt seen by [employer]/PA only: No Clinical Impression: Congestive heart failure, Acute exacerbation of chronic obstructive airways disease Disposition: Xfer As Inpt ([facility]) Condition: Good Referrals: Jg Zacarias DO [Primary Care Provider] - Time of Disposition: 14:57
--- NOTE | 2019-06-17 11:27 | XRay Report ---
CLINICAL INFORMATION: sob COMPARISON: 06/09/2019 FINDINGS: Moderate cardiomegaly unchanged. Large hiatal hernia also stable. Pacemaker and leads in stable satisfactory position. Mediastinum is unremarkable. Pulmonary vessels are only mildly distended - no definite edema. Moderate size right basilar infiltrate and small effusion show slight improvement. IMPRESSION: 1. Moderate right basilar infiltrate and small effusion - slight improvement from the x-ray over one week ago 2. Mild CHF 3. Large hiatal hernia - stable Interpreted and Authenticated by: Jg Perry 06/17/19
[2019-06-17] MEDS ORDERED: FUROSEMIDE 40 MG/4 ML VIAL IV ONE (11:38)
[2019-06-17 11:53] LABS: Basophils # (Auto) 0.01 K/mcL (0.00-0.30); Basophils % (Auto) 0.1 % (0.0-2.0); Eosinophils # (Auto) 0 K/mcL (0.00-0.70); Eosinophils % (Auto) 0 % (0.0-7.0); Granulocytes % (Auto) 88.6 % (38.0-78.0); Hematocrit 25.2 % (34.1-44.9); Hemoglobin 7.5 g/dL (11.2-15.7); Lymphocytes # (Auto) 0.48 K/mcL (1.50-4.80); Lymphocytes % (Auto) 4.7 % (15.5-49.0); Mean Cell Volume 96.2 fL (80.0-100.0); Mean Corpuscular HGB Conc 29.8 g/dL (31.0-36.0); Mean Platelet Volume 10.8 fL (7.4-10.4); Monocytes # (Auto) 0.68 K/mcL (0.10-0.90); Monocytes % (Auto) 6.6 % (1.0-12.0); Platelet Count 240 K/mcL (140-440); RBC 2.62 M/mcL (3.59-5.38); Red Cell Distribution Width 18.3 % (11.5-14.5); WBC 10.3 K/mcL (4.50-11.00)
[2019-06-17 12:17] LABS: ALT/SGPT 16 U/l (0-40); AST/SGOT 12 U/l (0-37); Albumin 4.2 gm/dL (3.2-5.2); Albumin/Globulin Ratio 1.6 (1.0-2.3); Alkaline Phosphatase 81 U/L (39-117); Bilirubin,Total 0.2 mg/dL (0.0-1.0); Blood Urea Nitrogen 61 mg/dl (8-23); Calcium 9.9 mg/dl (8.6-10.4); Carbon Dioxide 24 mmol/L (22-30); Chloride 100 mmol/L (96-108); Globulin 2.7 gm/dL (2.2-3.7); Glomerular Filtration Rate 12; Glucose 162 mg/dL (70-105)
[2019-06-17 12:24] LABS: INR 10.4 (0.9-1.1); Prothrombin Time 79.7 sec (11.9-14.5)
--- NOTE | 2019-06-17 15:22 | Internal Med History&Physical ---
Medical - H&P: HPI Patient information: Note initiated : 06/17/19 at 3:19 pm Service Date, if different from initiated Date: [] Patient: Dania Em a 79 y/o F admitted on for SOB, Shingles. Chief Complaint: [] Chief complaint: SOB, Aspiration, CHF History of present illness: Ms. Em is a 79 year old F with a history of DM type II who spent around 20 days in between different hospitals with what started his upper GI bleed followed by bowel perforation that required exploratory laparotomy and subsequent closure performed by Dr. Alanis at [place]. She underwent PEG tube placement to anchor stomach to the abdominal wall due to sliding esophageal hernia. She was transferred after 10 days hospitalization to [facility] for swing bed admission however within 2 hours patient had a massive aspiration episode and was subsequently flown back to [facility] in [place] for critical care needs. She spent additional 8 days recovering and was discharged home on 06/16. White count 10.3, INR 10.4, creatinine 3.5 Early this morning her daughter discovered her gasping for air with gurgling sound after patient attempted to drink water. She was about to be hypoxic and was brought into the ER. Initial work-up was consistent with bilateral lower lobes infiltrates consistent with pneumonia along with CHF findings. Hospitalist service was consulted, at the time evaluation patient is accompanied with her daughter Tiffani. She was able to answer most the question. Patient is alert and respond to commands. Both patient and daughter now affirmed that they would not want to be transferred to tertiary center and she would want to be DNR but would want full medical intervention that may include antibiotics/CHF management, they would also want INR reversed but did not want a GI consult or endoscopy. Furthermore they would not want blood transfusion. Both patient and daughter clearly indicated if she starts to bleed or if she continues to deteriorate with worsening respiratory failure they would want to initiate end-of-life care without aggressive intervention. She denies chest pain, lightheadedness, dizziness. She is short of breath and unable to talk in full sentences. Denies fever chills diarrhea Review of systems 10 point review system was performed and is negative except for discussed above Medical - H&P: PMH Medical history: History of reactive disease Chronic anemia Chronic bronchitis CKD stage IV History of DVT Hypertension Hyperlipidemia Hypothyroidism Obesity Osteoarthritis/osteopenia Right bundle branch block Obstructive sleep apnea Type 2 diabetes mellitus Surgical History Status post total abdominal hysterectomy and bilateral salpingo-oophorectomy (NATHANAEL-BSO) (Chronic) H/O: section (Acute) S/P laser cataract surgery (Acute) 2015 S/P placement of cardiac pacemaker (Acute) 2016 Total knee replacement status (Acute) per patient toatl of "3# History of esophagogastroduodenoscopy (EGD) (Chronic 08/06/17) with ablation of lesion - control of bleeding History of section (Inactive) X4 History of dilation and curettage (Inactive) History of esophagogastroduodenoscopy (Inactive) 10/09/2001 History of knee replacement (Inactive) Left X2, Right Hx of colonoscopy (Inactive) 11/05/2013 Family History Unknown Diabetes mellitus Glaucoma Cardiac disease Essential hypertension Gout Father , at 45 years of age MVA (motor vehicle accident) Social History marital status: smoking status: Never smoker alcohol intake frequency: does not drink substance use type: does not use Medical - H&P: Meds Home Medications Medication Instructions Recorded Confirmed Type Atorvastatin [Lipitor] 10 mg PO HS tab 08/25/17 06/17/19 Rx Ipratropium/Albuterol [Duoneb] 3 ml NEB Q4HP PRN 05/29/18 06/17/19 History ascorbic acid (vitamin C) 500 mg 500 mg PO DAILY cap 09/17/18 06/17/19 History capsule allopurinol 100 mg tablet 100 mg PO QDAY #90 tab 01/05/19 06/17/19 Rx cyanocobalamin (vitamin B-12) 1,000 mcg IM QMONTH #12 ml 03/31/19 06/17/19 Rx 1,000 mcg/mL injection solution warfarin 5 mg tablet 5 mg PO QDAY #90 tab 05/25/19 06/17/19 Rx Acetaminophen [Tylenol] 650 mg PO Q4HP PRN 06/09/19 06/17/19 History Calcitriol [Rocaltrol] 0.25 mcg PO BID 06/09/19 06/17/19 History Diltiazem [Cardizem Cd] 360 mg PO DAILY 06/09/19 06/17/19 History Epoetin Connor-Epbx [Retacrit] 10,000 unit IJ .3X/WEEK 06/09/19 06/17/19 History Ferrous Sulfate 325 mg PO BIDCC 06/09/19 06/17/19 History HYDROcodone/ACETAMINOPHEN [[place] 1 tab PO Q6HP PRN 06/09/19 06/17/19 History 5-325 Tablet] Levothyroxine Sodium [Synthroid] 150 mcg PO QAMAC 06/09/19 06/17/19 History Lidocaine [Lidoderm] 2 patch TOPICAL DAILY@1000 06/09/19 06/17/19 History Metoprolol Succinate [Toprol Xl] 25 mg PO DAILY 06/09/19 06/17/19 History Multivit,Ther Iron,Ca,FA & Min 1 tab PO DAILY 06/09/19 06/17/19 History [Multivitamin W/Minerals] Omeprazole [PriLOSEC] 40 mg PO BIDAC 06/09/19 06/17/19 History Potassium Chloride [Kdur] 40 meq PO QAMCC 06/09/19 06/17/19 History Torsemide [Demadex] 40 mg PO DAILY 06/09/19 06/17/19 History Allergies Allergy/AdvReac Type Severity Reaction Status Date / Time adhesive Allergy Mild Blister Verified 05/29/19 17:34 Medical - H&P: Exam - Constitutional Vitals: Temp Pulse Resp BP Pulse Ox 98.3 F 81 23 H 143/67 99 06/17/19 10:08 06/17/19 14:02 06/17/19 14:02 06/17/19 14:02 06/17/19 14:02 General appearance: moderate distress (Short of breath) Exam: Morbidly obese Alert and respond to commands Head normocephalic Oral cavity dry No ear nose discharge Eye movement symmetrical No lymphadenopathy S1-S2 occasional irregular beats, ESM grade 1 Breath sounds diminished Distended/pendulous abdomen. PEG tube in place Lower extremity pitting lymphedema involving calf thigh and dependent sacral edema Skin shingles but otherwise no suspicious lesion Psych alert and cooperative Neuro moving all 4 extremities Medical - H&P: Reslt - Labs CBC & Chem 7: 06/18/19 05:20 06/18/19 05:20 Labs: Short CBC 06/17/19 Range/Units 11:02 WBC 10.3 (4.50-11.00) K/mcL Hgb 7.5 L (11.2-15.7) g/dL Hct 25.2 L (34.1-44.9) % Plt Count 240 (140-440) K/mcL BMP 06/17/19 11:02 Sodium 143 Potassium 4.0 Chloride 100 Carbon Dioxide 24 BUN 61 H Creatinine 3.5 H Glucose 162 H Calcium 9.9 Liver Function 06/17/19 Range/Units 11:02 Total Bilirubin 0.2 (0.0-1.0) mg/dL AST 12 (0-37) U/l ALT 16 (0-40) U/l Alkaline Phosphatase 81 (39-117) U/L Albumin 4.2 (3.2-5.2) gm/dL Medical - H&P: A/P (1) Acute decompensated heart failure Current visit: Yes Status: Acute * Acute decompensated heart failure with volume overload continue aggressive diuresis. Reviewed echocardiogram * Hypoxic respiratory failure continue supplemental oxygen. Family would not want noninvasive ventilation. We will continue supplemental oxygen/high flow nasal cannula to maintain sats * Aspiration pneumonia with chemical pneumonitis. Continue aspiration precautions/ST eval/modified diet and elevate HOB. If worsening leukocytosis initiate antibiotics. * Shingles- Start PO valtrex * Supratherapeutic INR reversed with 2.5 mg vitamin K. Serial INR. Echocardiogram no evidence of valvular insufficiency. Consider new generation anticoagulants due to wild swinging INR * Recent exploratory laparotomy. Patient is scheduled to follow-up with surgery in 2-3 weeks at [facility] * Hiatal hernia with PEG tube placement, can be used for feeding as per daughter. * History paroxysmal atrial fibrillation currently rate controlled. On Coumadin for CVA prophylaxis. We will switch to Eliquis 2.5 mg once INR normalizes * Recent upper GI bleed-clinically resolved. Status post upper endoscopy. On PPI * DM type II continue basal prandial insulin/CC diet * Anticoagulation on Coumadin. Dosing based on INR * Chronic kidney disease stage IV, nephrology consulted. * History of NYHA class III diastolic heart failure with dual-chamber pacemaker implanted 09/11/2016 * Anemia of chronic disease-continue monitoring. Hemoglobin 7.5 post 2 units transfusion 2 weeks ago. * Full code Plan * Inpatient admission * Aspiration precautions/elevate HOB/pulmonary toilet * ST eval/diet per ST recommendations * PEG tube care * Nutrition support * Free water restriction to 1500 cc a day * Aggressive diuresis * PO valtrex * Vitamin K * Pre-existing medical condition management on home meds * Discharge planning likely SNF
--- NOTE | 2019-06-17 15:41 | Cat Scan Report ---
CLINICAL INFORMATION: Shortness of breath. History of right lower lobe infiltrate COMPARISON: Chest CT 03/26/2012 and 05/29/2019 TECHNIQUE: 0.625 mm axial slices were obtained from the lung apices through the bases without intravenous contrast. 2.5 mm Sagittal, coronal and axial reformatted images were processed and reviewed at bone, lung and soft tissue windows. 7 mm axial MIP images were also reconstructed to optimize pulmonary nodule detection.The exam was performed using radiation dose optimization techniques including, but not limited to, automated exposure control, adjustment of the mA and/or kV according to patient size and use of iterative reconstruction technique. FINDINGS: Images degraded by motion artifact.Large densely consolidated infiltrate the right lower lobe with superior segment sparing shows slight improvement since the chest CT over two weeks prior 05/29/2019. Moderate patchy infiltrate has developed in the right upper and middle lobes. Subsegmental atelectasis of the medial, posterior basilar and superior segment left lower lobe due to adjacent hiatal hernia seen - as before. The remaining left lung is well expanded and clear. Moderate right pleural effusion shows slight increase. Mediastinal windows show large hiatal hernia - as previously seen. The heart is mildly enlarged, but stable. Mild central pulmonary enlargement noted pulmonary diameter is 3.3 cm. Thoracic aorta is unremarkable. A few mildly enlarged lymph nodes in the right hilum and paratracheal region seen as before. Bones and soft tissues and chest wall are normal. IMPRESSION: 1. Large densely consolidated consolidated infiltrate right lower lobe showing slight improvement from the comparison CT over two weeks prior. There are however new moderate patchy infiltrates in the right upper and middle lobe. Moderate right pleural effusion has increased. Consider infection or aspiration 2. Subsegmental atelectasis in the medial, posterior basilar anterior basilar segment left lower lobe related to mass effect from the large hiatal hernia - no change. 3. Large hiatal hernia 4. Mild enlargement central pulmonary arteries suggesting pulmonary hypertension related to COPD 5. 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 This also noted on the recent study but was new from the remote 2011 CT Interpreted and Authenticated by: Jg Perry 06/17/19
[2019-06-17] MEDS ORDERED: DEXTROSE 50% 50 ML VIAL IV PRN (17:27)
[2019-06-17] MEDS ORDERED: IPRATROPIUM/ALBUTEROL 3 ML AMPUL.NEB NEB PRN (17:27)
[2019-06-17] MEDS ORDERED: PHYTONADIONE 10 MG/ML AMPUL PO ONE (17:27)
[2019-06-17] MEDS ORDERED: POLYETHYLENE GLYCOL 3350 17 GM PACKET PO PRN (17:27)
[2019-06-17] MEDS ORDERED: MAGNESIUM SULFATE 2 GM/50 ML BAG IV PRN (17:27)
[2019-06-17] MEDS ORDERED: POTASSIUM CHLORIDE 20 MEQ PACKET PO PRN (17:27)
[2019-06-17] MEDS ORDERED: METOLAZONE 2.5 MG TABLET PO SCH (17:27)
[2019-06-17] MEDS ORDERED: ONDANSETRON 4 MG ODT TABLET SL PRN (17:27)
[2019-06-17] MEDS ORDERED: ONDANSETRON 4 MG/2 ML VIAL IV PRN (17:27)
[2019-06-17] MEDS ORDERED: ACETAMINOPHEN 650 MG/65 ML BOTTLE IV PRN (17:27)
[2019-06-17] MEDS ORDERED: BISACODYL 10 MG SUPP.RECT PR PRN (17:27)
[2019-06-17] MEDS ORDERED: DEXTROSE 31 GM ORAL.SUSP PO PRN (17:27)
[2019-06-17] MEDS: INSULIN LISPRO 1 UNIT/0.01 ML UNIT SQ SCH ×2 (18:55→22:46)
[2019-06-17] MEDS ORDERED: MELATONIN 3 MG TABLET PO PRN (21:00)
[2019-06-17] MEDS: DOCUSATE SODIUM 100 MG CAPSULE PO SCH (22:10)
[2019-06-17] MEDS: SENNOSIDES/DOCUSATE SODIUM 1 TAB TABLET PO SCH (22:10)
[2019-06-17] MEDS: 0.9 % SODIUM CHLORIDE 10 ML SYRINGE IV SCH (22:17)
[2019-06-17] MEDS: FUROSEMIDE 40 MG/4 ML VIAL IV SCH (22:17)
[2019-06-18] MEDS: 0.9 % SODIUM CHLORIDE 10 ML SYRINGE IV SCH ×4 (05:40→20:51)
[2019-06-18] MEDS: FUROSEMIDE 40 MG/4 ML VIAL IV SCH ×3 (05:40→21:37)
[2019-06-18 06:33] LABS: Hematocrit 25.1 % (34.1-44.9); Hemoglobin 7.3 g/dL (11.2-15.7); Mean Cell Volume 96.9 fL (80.0-100.0); Mean Corpuscular HGB Conc 29.1 g/dL (31.0-36.0); Mean Platelet Volume 11.2 fL (7.4-10.4); Platelet Count 232 K/mcL (140-440); RBC 2.59 M/mcL (3.59-5.38); Red Cell Distribution Width 18.5 % (11.5-14.5); WBC 9.6 K/mcL (4.50-11.00)
--- NOTE | 2019-06-18 07:00 | Nephrology Consult Note ---
History of Present Illness - Reason for Consult Patient information: Note initiated : 06/18/19 at 6:58 am Patient: Dania Em 79 y/o F admitted on 06/17/19 for Carmela SALAZAR. Consult date: 06/18/19 acute renal failure, chronic renal failure Requesting physician: Cameron Fernandez - Chief Complaint Shortness of breath - History of Present Illness Dania Em is a 79-year-old female with hypertension, hyperlipidemia, hypothyroidism, chronic obstructive pulmonary disease, diabetes mellitus type 2, chronic kidney disease stage 4, chronic anemia due to kidney disease and iron deficiency, admitted on 06/17/19. She was admitted initially for GI bleed followed by bowel perforation that required exploratory laparotomy and subsequently PEG tube placement at [facility]. She was transferred after 10 days hospitalization to [facility] for swing bed admission however within 2 hours patient had a massive aspiration episode and was subsequently flown back to [facility] in [place] for critical care. She spent additional 8 days recovering and was discharged home on 06/16/19. She was brought back to ED when her daughter found her gasping for air with gurgling sound after patient attempted to drink water. Initial work-up was consistent with bilateral lower lobes infiltrates consistent with pneumonia along with CHF findings. The patient and her daughter declined transfer to tertiary center. She is DNR. She wants full medical intervention that may include antibiotics, CHF management and blood transfusion. She does not want a GI consult or endoscopy. Both patient and daughter clearly indicated if she starts to bleed or if she continues to deteriorate with worsening respiratory failure they would want to initiate end-of-life care without aggressive intervention. Review of Systems Constitutional: lethargy, weakness Nose, mouth and throat: no nasal congestion, no sore throat Cardiovascular: no chest pain, no palpatations Respiratory: cough, dyspnea Gastrointestinal: no abdominal pain, no nausea Genitourinary: no dysuria, no hematuria Integumentary: no rash, no wounds Neurological: no confusion, no focal weakness Psychiatric: no anxiety, no panic attacks Allergic/Immunologic: no tongue swelling, no uticaria Past History Past medical history: Medical History (Last Reviewed 03/17/19 @ 08:22 by Jg Zacarias DO) Anemia due to stage 4 chronic kidney disease treated with darbepoetin (Chronic) Hypertension (Chronic) Anemia due to chronic kidney disease (Chronic) Chronic gastrointestinal bleeding (Chronic) Bronchiectasis (Chronic) Large hiatal hernia (Chronic) CVA (cerebral vascular accident) (Chronic) Spinal stenosis at L4-L5 level (Chronic) Acute bronchitis (Acute) Syncope (Acute) Bradycardia (Acute) Hyperuricemia (Chronic) Shoulder pain (Acute) Long-term current use of steroids (Acute) Polymyalgia rheumatica syndrome (Ruled-out) 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) Venous stasis (Chronic) Obstructive sleep apnea syndrome (Chronic) Secondary hyperparathyroidism of renal origin (Chronic) Hypertensive renal disease (Chronic) Chronic kidney disease, stage IV (severe) (Chronic) Vitreous degeneration (Chronic) Vitamin D deficiency (Chronic) Sleep apnea (Chronic) Restless leg syndrome (Chronic) Pulmonary hypertension (Chronic) Pulmonary embolism (Chronic) Prediabetes (Chronic) Osteopenia (Chronic) Osteoarthritis (Chronic) Nuclear sclerosis (Chronic) Morbid obesity (Chronic) Hypothyroidism (Chronic) Hypertension, essential (Chronic) Hyperparathyroidism, secondary renal (Chronic) Hyperkalemia (Chronic) Gout (Chronic) Gastroesophageal reflux (Chronic) Edema (Chronic) Diastolic dysfunction (Chronic) COPD (chronic obstructive pulmonary disease) (Chronic) Kidney disease, chronic, stage III (moderate, EGFR 30-59 ml/min) (Chronic) Asthma (Chronic) Anemia (Chronic) Thyroid disease (Acute) Cellulitis (Ruled-out) Blepharitis (Inactive) Cellulitis of left arm (Inactive) Deep vein thrombosis (Inactive) halfway current use of anticoagulant (Inactive) Thrombosis (Inactive) Visual disturbances (Inactive) Past surgical history: Past Surgical History (Last Reviewed 03/17/19 @ 08:22 by Jg Zacarias DO) Status post total abdominal hysterectomy and bilateral salpingo-oophorectomy (NATHANAEL-BSO) (Chronic) H/O: section (Acute) S/P laser cataract surgery (Acute) S/P placement of cardiac pacemaker (Acute) Total knee replacement status (Acute) History of esophagogastroduodenoscopy (EGD) (Chronic 08/06/17) History of section (Inactive) History of dilation and curettage (Inactive) History of esophagogastroduodenoscopy (Inactive) History of knee replacement (Inactive) Hx of colonoscopy (Inactive) Past family history: Family History (Last Reviewed 03/17/19 @ 08:22 by Jg Rell, DO) Unknown Diabetes mellitus Glaucoma Cardiac disease Essential hypertension Gout Father MVA (motor vehicle accident) Past social history: marital status: smoking status: Never smoker alcohol intake frequency: does not drink substance use type: does not use Medications and Allergies Home Medications Medication Instructions Recorded Confirmed Type Atorvastatin [Lipitor] 10 mg PO HS tab 08/25/17 06/17/19 Rx Ipratropium/Albuterol [Duoneb] 3 ml NEB Q4HP PRN 05/29/18 06/17/19 History ascorbic acid (vitamin C) 500 mg 500 mg PO DAILY cap 09/17/18 06/17/19 History capsule allopurinol 100 mg tablet 100 mg PO QDAY #90 tab 01/05/19 06/17/19 Rx cyanocobalamin (vitamin B-12) 1,000 mcg IM QMONTH #12 ml 03/31/19 06/17/19 Rx 1,000 mcg/mL injection solution warfarin 5 mg tablet 5 mg PO QDAY #90 tab 05/25/19 06/17/19 Rx Acetaminophen [Tylenol] 650 mg PO Q4HP PRN 06/09/19 06/17/19 History Calcitriol [Rocaltrol] 0.25 mcg PO BID 06/09/19 06/17/19 History Diltiazem [Cardizem Cd] 360 mg PO DAILY 06/09/19 06/17/19 History Epoetin Connor-Epbx [Retacrit] 10,000 unit IJ .3X/WEEK 06/09/19 06/17/19 History Ferrous Sulfate 325 mg PO BIDCC 06/09/19 06/17/19 History HYDROcodone/ACETAMINOPHEN [[place] 1 tab PO Q6HP PRN 06/09/19 06/17/19 History 5-325 Tablet] Levothyroxine Sodium [Synthroid] 150 mcg PO QAMAC 06/09/19 06/17/19 History Lidocaine [Lidoderm] 2 patch TOPICAL DAILY@1000 06/09/19 06/17/19 History Metoprolol Succinate [Toprol Xl] 25 mg PO DAILY 06/09/19 06/17/19 History Multivit,Ther Iron,Ca,FA & Min 1 tab PO DAILY 06/09/19 06/17/19 History [Multivitamin W/Minerals] Omeprazole [PriLOSEC] 40 mg PO BIDAC 06/09/19 06/17/19 History Potassium Chloride [Kdur] 40 meq PO QAC 06/09/19 06/17/19 History Torsemide [Demadex] 40 mg PO DAILY 06/09/19 06/17/19 History Allergies Allergy/AdvReac Type Severity Reaction Status Date / Time adhesive Allergy Mild Blister Verified 05/29/19 17:34 Exam - Vital Signs Vital signs: Temp Pulse Resp BP Pulse Ox 98.1 F 79 16 142/78 97 06/18/19 04:00 06/18/19 06:00 06/18/19 06:00 06/18/19 06:00 06/18/19 06:00 - General Appearance General appearance: chronically ill, fatigue EENT: mucous membranes dry Neck: supple Respiratory: course breath sounds Cardiology: edema Gastrointestinal: no tenderness Integumentary: warm and dry Neurologic: no focal deficit, alert and oriented x3 Musculoskeletal: no deformities Psychiatric: mood/affect appropriate, cooperative Results - Lab Results 06/18/19 05:20 06/18/19 05:20 Most recent lab results Calcium 9.9 mg/dl (8.6-10.4) 06/17/19 11:02 Assessment and Plan (1) Acute on chronic renal failure Dania Em is a 79-year-old female with hypertension, hyperlipidemia, hypothyroidism, chronic obstructive pulmonary disease, diabetes mellitus type 2, chronic kidney disease stage 4, chronic anemia due to kidney disease and iron deficiency, admitted on 06/17/19. She was admitted initially for GI bleed followed by bowel perforation that required exploratory laparotomy and subsequently PEG tube placement at [facility]. She was transferred after 10 days hospitalization to [facility] for swing bed admission however within 2 hours patient had a massive aspiration episode and was subsequently flown back to [facility] in [place] for critical care. She spent additional 8 days recovering and was discharged home on 06/16/19. She was brought back to ED when her daughter found her gasping for air with gurgling sound after patient attempted to drink water. Initial work-up was consistent with bilateral lower lobes infiltrates consistent with pneumonia along with CHF findings. The patient and her daughter declined transfer to tertiary center. She is DNR. She wants full medical intervention that may include antibiotics, CHF management and blood transfusion. She does not want a GI consult or endoscopy. Both patient and daughter clearly indicated if she starts to bleed or if she continues to deteriorate with worsening respiratory failure they would want to initiate end-of-life care without aggressive intervention. Acute kidney injury on chronic kidney disease stage 4, present on arrival. Fluid retention requiring diuretics. Recent work up: Urinalysis on 05/07/19: Yellow, Hazy, pH 6.0, SG 1.012, protein negative, occult blood negative, leukocyte esterase 250. Urine random total protein/creatinine on 05/07/19: 370 mg/g creatinine. Free [place]/Lambda ratio on 09/17/18: 3.123. CT Abdomen and Pelvis without contrast on 05/28/19: There is moderate bilateral renal atrophy: left kidney is 7 cm in length and the right kidney is 8 cm in length. No focal renal lesions. Progress: Urine output: 1450 ml reported in the past 12 hours. Serum creatinine decreased from 3.5 to 3.2 in the past 18 hours; eGFR ~13. Recommendations/Plan: Furosemide 40 mg IV Q8H. Metolazone on hold. Possible hemodialysis need discussed with the patient. She may consider if it is a last resort, however she declines transfer to another hospital for tunneled hemodialysis catheter. Avoid NSAIDs, nephrotoxic medications and IV contrast. Monitor BMP and urine output. Status: Acute Priority: High Qualifiers: Acute renal failure type: unspecified Chronic kidney disease stage: stage 4 (severe) Qualified Code(s): N17.9 - Acute kidney failure, unspecified; N18.4 - Chronic kidney disease, stage 4 (severe)
[2019-06-18 07:07] LABS: Bilirubin,Direct < 0.2 mg/dL (0.0-0.3); Chloride 104 mmol/L (96-108)
[2019-06-18 07:16] LABS: ALT/SGPT 14 U/l (0-40); AST/SGOT 16 U/l (0-37); Albumin 3.6 gm/dL (3.2-5.2); Albumin/Globulin Ratio 1.3 (1.0-2.3); Alkaline Phosphatase 76 U/L (39-117); Bilirubin,Total 0.2 mg/dL (0.0-1.0); Blood Urea Nitrogen 65 mg/dl (8-23); Calcium 9.2 mg/dl (8.6-10.4); Carbon Dioxide 22 mmol/L (22-30); Globulin 2.8 gm/dL (2.2-3.7); Glomerular Filtration Rate 13; Glucose 105 mg/dL (70-105); Lactate Dehydrogenase 375 U/L (94-250); Phosphorous 3.7 mg/dL (2.7-4.5); Triglycerides 57 mg/dl (<150); Uric Acid 15.4 mg/dL (2.5-8.0)
[2019-06-18] MEDS: INSULIN LISPRO 1 UNIT/0.01 ML UNIT SQ SCH ×4 (07:17→21:36)
[2019-06-18 07:28] LABS: Anisocytosis 1+ (NONE SEEN); Hypochromasia 1+ (NONE SEEN); Lymphocytes % 10 % (15-49); Monocytes % (Manual) 4 % (1-12); Platelet Estimate NORMAL (NORMAL); RBC Morphology ABNORM (NORMAL); Segmented Neutrophils % 86 % (38-78)
[2019-06-18] MEDS: THIAMINE 100 MG TABLET PO SCH (09:11)
[2019-06-18] MEDS: MULTIVIT,THER IRON,CA,FA & MIN 1 TABLET PO SCH (09:11)
[2019-06-18] MEDS: FOLIC ACID 1 MG TABLET PO SCH (09:11)
[2019-06-18] MEDS: DOCUSATE SODIUM 100 MG CAPSULE PO SCH ×2 (09:11→21:37)
[2019-06-18] MEDS ORDERED: EPOETIN ALFA EPBX 10000 UNIT SUB-Q SCH (10:00)
[2019-06-18] MEDS ORDERED: METOPROLOL SUCCINATE 25 MG TAB.XL.24H PO ONE (11:54)
--- NOTE | 2019-06-18 12:10 | Internal Med Progress Note ---
Medical - PN: Subj Patient information: Note initiated : 06/18/19 at 12:07 pm Service Date, if different from initiated Date: [] Patient: Dania Em a 79 y/o F admitted on 06/17/19 for SOBRupertneno. Chief Complaint: [] Interval history: Ms. Em is a 79 year old F with a history of DM type II who spent around 20 days in between different hospitals with what started his upper GI bleed followed by bowel perforation that required exploratory laparotomy and subsequent closure performed by Dr. Alanis at [facility]. She underwent PEG tube placement to anchor stomach to the abdominal wall due to sliding esophageal hernia. She was transferred after 10 days hospitalization to [facility] for swing bed admission however within 2 hours patient had a massive aspiration episode and was subsequently flown back to [facility] in [place] for critical care needs. She spent additional 8 days recovering and was discharged home on 06/16. White count 10.3, INR 10.4, creatinine 3.5 Early this morning her daughter discovered her gasping for air with gurgling sound after patient attempted to drink water. She was about to be hypoxic and was brought into the ER. Initial work-up was consistent with bilateral lower lobes infiltrates consistent with pneumonia along with CHF findings. Hospitalist service was consulted, at the time evaluation patient is accompanied with her daughter Tiffani. She was able to answer most the question. Patient is alert and respond to commands. Both patient and daughter now affirmed that they would not want to be transferred to tertiary center and she would want to be DNR but would want full medical intervention that may include antibiotics/CHF management, they would also want INR reversed but did not want a GI consult or endoscopy. Furthermore they would not want blood transfusion. Both patient and daughter clearly indicated if she starts to bleed or if she continues to deteriorate with worsening respiratory failure they would want to initiate end- of-life care without aggressive intervention. She denies chest pain, lightheadedness, dizziness. She is short of breath and unable to talk in full sentences. Denies fever chills diarrhea 06/18-patient doing well. No overnight events. Diuresing well. Improved shortness of breath. Able to talk in near full sentences. Improved mental status. Blistering rash left arm extensor aspect/palm but no pain. Improving lymphedema. Rivera is draining clear urine. Nephrology on board. Repeat INR pe nding. White count 9.6, creatinine 3.2 - Constitutional Vitals: Vital Signs Temp Pulse Resp BP Pulse Ox 97.8 F 79 20 157/76 95 06/18/19 11:00 06/18/19 06:00 06/18/19 11:00 06/18/19 11:00 06/18/19 11:00 Period Temp Pulse Resp BP Sys/Chavez Pulse Ox Last 24 Hr 97.6 F-98.9 F 74-94 16-27 112-161/43-90 95-100 Intake and Output 06/17/19 06/18/19 06/18/19 21:59 05:59 13:59 Intake Total 180 Output Total 1450 1050 Balance -1450 -870 Weight 271 lb 11.2 oz Intake & Output: Intake & Output 06/17/19 06/18/19 06/18/19 21:59 05:59 13:59 Intake Total 180 Output Total 1450 1050 Balance -1450 -870 Weight 271 lb 11.2 oz Intake: Oral 180 Output: Urine Catheter Amount 1450 1050 Other: Meal Breakfast Percent of Meal Consumed 50% Feeding Ability Needs Supervision Urine Appearance Clear Clear Uretheral (Rivera) Clear Urine Color Dark Yellow Bright Yellow Uretheral (Rivera) Bright Yellow Urine Odor Normal Uretheral (Rivera) Normal General appearance: no acute distress Exam: Alert oriented Nonlabored breathing Rivera draining clear urine Improving lymphedema Vesiculopapular rash involving left arm and extensor aspect No telemetry events Medical - PN: Obj Da - Labs CBC & Chem 7: 06/18/19 05:20 06/18/19 05:20 Labs: Abnormal Lab Results 06/18/19 06/18/19 06/17/19 05:20 05:20 11:02 RBC 2.59 L Hgb 7.3 L Hct 25.1 L MCHC 29.1 L RDW 18.5 H MPV 11.2 H Gran % Lymph % (Auto) Gran # Lymph # (Auto) Seg Neutrophils % 86 H Lymphocytes % 10 L RBC Morphology Abnorm A Hypochromasia 1+ A Anisocytosis 1+ A PT INR Anion Gap 18.0 H 19.0 H BUN 65 H 61 H Creatinine 3.2 H 3.5 H Glucose 162 H Uric Acid 15.4 H Lactate Dehydrogenase 375 H NT-Pro-B Natriuret Pep 8540.0 H 06/17/19 06/17/19 11:02 11:02 RBC 2.62 L Hgb 7.5 L Hct 25.2 L MCHC 29.8 L RDW 18.3 H MPV 10.8 H Gran % 88.6 H Lymph % (Auto) 4.7 L Gran # 9.10 H Lymph # (Auto) 0.48 L Seg Neutrophils % Lymphocytes % RBC Morphology Hypochromasia Anisocytosis PT 79.7 H INR 10.4 H* Anion Gap BUN Creatinine Glucose Uric Acid Lactate Dehydrogenase NT-Pro-B Natriuret Pep Meds: Medications Acetaminophen (Tylenol) 650 mg PO Q4-6HP PRN; Protocol PRN Reason: Per Pain Protocol/Fever > 101 Albuterol/Ipratropium (Duoneb) 3 ml NEB Q4HP PRN PRN Reason: Shortness Of Breath Albuterol/Ipratropium (Duoneb) 3 ml NEB Q4HP PRN PRN Reason: Shortness Of Breath Allopurinol (Zyloprim) 100 mg PO QDAY [facility] Ascorbic Acid (Vitamin C) 500 mg PO DAILY [facility] Atorvastatin Calcium (Lipitor) 10 mg PO HS [place] Bisacodyl (Dulcolax) 10 mg RI Q2-3DAYS PRN PRN Reason: Constipation Calcitriol (Rocaltrol) 0.25 mcg PO BID [facility] Dextrose (Dextrose 50%) 0 ml IV UD PRN PRN Reason: Hypoglycemia Diagnostic Test (Pha) (Accu-Chek) 1 each FS ACHS [facility] Last Admin: 06/18/19 07:16 Dose: 1 each Documented by: Diltiazem HCl (Cardizem Cd) 360 mg PO DAILY [facility] Diltiazem HCl (Cardizem Cd) 360 mg PO ONCE ONE Stop: 06/19/19 11:58 Docusate Sodium (Colace) 100 mg PO BID [facility] Last Admin: 06/18/19 09:11 Dose: 100 mg Documented by: Folic Acid (Folic Acid) 1 mg PO DAILY [facility] Last Admin: 06/18/19 09:11 Dose: 1 mg Documented by: Furosemide (Lasix) 40 mg IV Q8 [facility] Last Admin: 06/18/19 05:40 Dose: 40 mg Documented by: Glucose (Insta-Glucose) 15 gm PO PRN PRN PRN Reason: Hypoglycemia Acetaminophen (Ofirmev) 650 mg in 65 mls @ 130 mls/hr IV Q6HP PRN; Protocol PRN Reason: Per Pain Protocol/Fever > 101 Magnesium Sulfate (Magnesium Sulfate) 2 gm in 50 mls @ 50 mls/hr IV UD PRN PRN Reason: MG = or < 1.7 Insulin Human Lispro (Humalog) 0 unit SQ ACHS [facility]; Protocol Last Admin: 06/18/19 07:17 Dose: Not Given Documented by: Iron Carb/Multivit/Hull Grinder/Folic Acid (Multivitamin W/Minerals) 1 tab PO DAILY [facility] Last Admin: 06/18/19 09:11 Dose: 1 tab Documented by: Levothyroxine Sodium (Synthroid) 150 mcg PO QAMAC [facility] Melatonin (Melatonin 3mg Tablet) 3 mg PO HSP PRN PRN Reason: Insomnia Metoprolol Succinate (Toprol Xl) 25 mg PO DAILY [facility] Omeprazole (Prilosec) 40 mg PO BIDAC [facility] Ondansetron HCl (Zofran Odt) 4 mg SL Q4-6HP PRN; Protocol PRN Reason: Nausea And Vomiting Ondansetron HCl (Zofran) 4 mg IV Q4-6HP PRN; Protocol PRN Reason: Nausea And Vomiting Epoetin Connor-Epbx [ Retacrit] 10,000 Unit Vial 1 dose SUB-Q .3X/WEEK [facility] Polyethylene Glycol (Miralax) 17 gm PO DAILYP PRN PRN Reason: Constipation Potassium Chloride (Klor-Con) 40 meq PO DAILYP PRN PRN Reason: K+ < 3.5 Potassium Chloride (Kdur) 40 meq PO QAMCC [facility] Senna/Docusate Sodium (Senna Plus Tablet) 1 tab PO HS [facility] Last Admin: 06/17/19 22:10 Dose: Not Given Documented by: Sodium Chloride (Saline Flush) 10 ml IV Q8 [facility] Last Admin: 06/18/19 07:11 Dose: 10 ml Documented by: Thiamine HCl (Vitamin B1) 100 mg PO DAILY [facility] Last Admin: 06/18/19 09:11 Dose: 100 mg Documented by: Torsemide (Demadex) 40 mg PO DAILY [facility] Medical - PN: A/P - Time Spent With Patient Total time spent is greater than 50% in coordination of care (as documented) at patient's floor/unit and/or counseling patient: 25 - 35 minutes (1) Acute decompensated heart failure Status: Acute Assessment and plan: * Acute decompensated heart failure with volume overload continue aggressive diuresis. Reviewed echocardiogram * Hypoxic respiratory failure continue supplemental oxygen. Family would not want noninvasive ventilation. We will continue supplemental oxygen/high flow nasal cannula to maintain sats * Aspiration pneumonia with chemical pneumonitis. Continue aspiration precautions/ST eval/modified diet and elevate HOB. If worsening leukocytosis initiate antibiotics. * Vesiculopapular rash left arm possible shingles - PO valtrex * Supratherapeutic INR reversed with 2.5 mg vitamin K. Serial INR. Echocardiogram no evidence of valvular insufficiency. Consider new generation anticoagulants due to wild swinging INR * Recent exploratory laparotomy. Patient is scheduled to follow-up with surgery in 2-3 weeks at [facility] * Hiatal hernia with PEG tube placement, can be used for feeding as per daughter . * History paroxysmal atrial fibrillation currently rate controlled. On Coumadin for CVA prophylaxis. We will switch to Eliquis 2.5 mg once INR normalizes * Recent upper GI bleed-clinically resolved. Status post upper endoscopy. On PPI * DM type II continue basal prandial insulin/CC diet * Anticoagulation on Coumadin. Dosing based on INR * Chronic kidney disease stage IV, creatinine 3.2, nephrology consulted. Free water restriction to 1500 cc * History of NYHA class III diastolic heart failure with dual-chamber pacemaker implanted 09/11/2016 * Anemia of chronic disease-continue monitoring. Hemoglobin 7.5 post 2 units transfusion 2 weeks ago. * Full code Plan * Continue aspiration precautions/elevate HOB/pulmonary toilet * ST eval/diet per ST recommendations * PEG tube care * Nutrition support * Free water restriction to 1500 cc a day * Continue aggressive diuresis * Monitor renal function * Start Eliquis once INR normalizes * Pre-existing medical condition management on home meds * Discharge planning likely swing bed Current Visit: Yes
[2019-06-18 12:23] LABS: INR 2.1 (0.9-1.1); Prothrombin Time 23.2 sec (11.9-14.5)
[2019-06-18] MEDS ORDERED: DILTIAZEM 120 MG CAP.XL.24H PO ONE (12:30)
[2019-06-18] MEDS: valACYclovir 500 MG TABLET PO SCH (12:36)
[2019-06-18] MEDS: ACETAMINOPHEN 325 MG TABLET PO PRN (16:16)
[2019-06-18] MEDS: OMEPRAZOLE 20 MG CAPSULE PO SCH (16:58)
[2019-06-18] MEDS: ATORVASTATIN 20 MG TABLET PO SCH (21:37)
[2019-06-18] MEDS: SENNOSIDES/DOCUSATE SODIUM 1 TAB TABLET PO SCH (21:37)
[2019-06-18] MEDS: CALCITRIOL 0.25 MCG CAPSULE PO SCH (21:37)
[2019-06-19] MEDS: FUROSEMIDE 40 MG/4 ML VIAL IV SCH (06:02)
[2019-06-19] MEDS: 0.9 % SODIUM CHLORIDE 10 ML SYRINGE IV SCH ×3 (06:02→20:11)
[2019-06-19] MEDS: ACETAMINOPHEN 325 MG TABLET PO PRN ×3 (06:12→20:09)
[2019-06-19 06:43] LABS: Hemoglobin 8.1 g/dL (11.2-15.7); Mean Cell Volume 95.4 fL (80.0-100.0); Mean Platelet Volume 10.9 fL (7.4-10.4); Platelet Count 226 K/mcL (140-440); RBC 2.83 M/mcL (3.59-5.38); Red Cell Distribution Width 18.4 % (11.5-14.5)
[2019-06-19 06:58] LABS: INR 1.5 (0.9-1.1); Prothrombin Time 17.8 sec (11.9-14.5)
[2019-06-19 07:05] LABS: Bilirubin,Direct < 0.2 mg/dL (0.0-0.3); Chloride 100 mmol/L (96-108)
[2019-06-19] MEDS: INSULIN LISPRO 1 UNIT/0.01 ML UNIT SQ SCH ×4 (07:09→20:40)
[2019-06-19 07:12] LABS: ALT/SGPT 12 U/l (0-40); AST/SGOT 23 U/l (0-37); Albumin 3.4 gm/dL (3.2-5.2); Albumin/Globulin Ratio 1.3 (1.0-2.3); Alkaline Phosphatase 74 U/L (39-117); Bilirubin,Total 0.2 mg/dL (0.0-1.0); Blood Urea Nitrogen 65 mg/dl (8-23); Calcium 9.3 mg/dl (8.6-10.4); Carbon Dioxide 24 mmol/L (22-30); Globulin 2.7 gm/dL (2.2-3.7); Glomerular Filtration Rate 14; Glucose 99 mg/dL (70-105); Lactate Dehydrogenase 445 U/L (94-250); Phosphorous 2.9 mg/dL (2.7-4.5); Triglycerides 59 mg/dl (<150); Uric Acid 15.5 mg/dL (2.5-8.0)
[2019-06-19] MEDS: OMEPRAZOLE 20 MG CAPSULE PO SCH ×2 (07:43→17:31)
[2019-06-19] MEDS: IPRATROPIUM/ALBUTEROL 3 ML AMPUL.NEB NEB PRN ×2 (07:44→16:58)
[2019-06-19] MEDS: LEVOTHYROXINE 150 MCG TABLET PO SCH (07:45)
--- NOTE | 2019-06-19 08:00 | Nephrology Progress Note ---
Subjective Patient information: Note initiated : 06/19/19 at 7:57 am Patient: Dania Em 79 y/o F admitted on 06/17/19 for SOB, Shingles. Chief Complaint: Shortness of breath Pertinent ROS: Weakness Shortness of breath Edema Objective - Vital Signs Vital signs: Vital Signs Temp Pulse Resp BP BP Pulse Ox 06/19/19 06:16 74 24 H 144/65 95 06/19/19 04:00 97.8 F 80 28 H 130/64 94 06/19/19 01:08 24 H 06/19/19 01:00 90 28 H 128/60 92 06/19/19 00:00 98.4 F 75 20 154/62 94 06/18/19 23:30 76 24 H 148/67 95 06/18/19 18:54 97.4 F 83 22 147/62 91 06/18/19 17:00 18 134/71 94 06/18/19 14:41 20 139/60 94 06/18/19 14:30 95 06/18/19 13:45 18 156/82 96 06/18/19 11:00 97.8 F 20 157/76 95 06/18/19 09:45 20 150/90 96 06/18/19 08:00 99 Intake and Output 06/18/19 06/19/19 06/19/19 21:59 05:59 13:59 Intake Total 540 240 120 Output Total 600 1175 450 Balance -60 935 -847 Intake: Oral 540 240 120 Output: Urine Catheter Amount 600 1175 450 Other: Meal Dinner Percent of Meal Consumed 100% Urine Appearance Clear Clear Clear Uretheral (Rivera) Clear Clear Urine Color Bright Yellow Bright Yellow Bright Yellow Uretheral (Rivera) Bright Yellow Bright Yellow Urine Odor Normal Normal Stool Size Small Stool Color Brown Stool Consistency Soft Weight 269 lb 11.2 oz Intake & Output: Intake & Output 06/18/19 06/19/19 06/19/19 21:59 05:59 13:59 Intake Total 540 240 120 Output Total 600 1175 450 Balance -60 935 -934 Weight 269 lb 11.2 oz Intake: Oral 540 240 120 Output: Urine Catheter Amount 600 1175 450 Other: Meal Dinner Percent of Meal Consumed 100% Urine Appearance Clear Clear Clear Uretheral (Rivera) Clear Clear Urine Color Bright Yellow Bright Yellow Bright Yellow Uretheral (Rivera) Bright Yellow Bright Yellow Urine Odor Normal Normal Stool Size Small Stool Color Brown Stool Consistency Soft - General Appearance General appearance: chronically ill, fatigue EENT: mucous membranes moist Neck: supple Respiratory: clear Cardiology: edema Gastrointestinal: no tenderness Integumentary: warm and dry Neurologic: no focal deficit, alert and oriented x3 Musculoskeletal: no deformities Psychiatric: mood/affect appropriate, cooperative - Lab 06/19/19 05:10 06/19/19 05:10 Most recent lab results Calcium 9.3 mg/dl (8.6-10.4) 06/19/19 05:10 Phosphorus 2.9 mg/dL (2.7-4.5) 06/19/19 05:10 Magnesium 2.0 mg/dL (1.6-2.5) 06/19/19 05:10 Assessment and Plan (1) Acute on chronic renal failure Dania Em is a 79-year-old female with hypertension, hyperlipidemia, hypothyroidism, chronic obstructive pulmonary disease, diabetes mellitus type 2, chronic kidney disease stage 4, chronic anemia due to kidney disease and iron deficiency, admitted on 06/17/19. She was admitted initially for GI bleed fo llowed by bowel perforation that required exploratory laparotomy and subsequently PEG tube placement at [facility]. She was transferred after 10 days hospitalization to [facility] for swing bed admission however within 2 hours patient had a massive aspiration episode and was subsequently flown back to [facility] in [place] for critical care. She spent additional 8 days recovering and was discharged home on 06/16/19. She was brought back to ED when her daughter found her gasping for air with gurgling sound after patient attempted to drink water. Initial work-up was consistent with bilateral lower lobes infiltrates consistent with pneumonia along with CHF findings. The patient and her daughter declined transfer to tertiary center. She is DNR. She wants full medical intervention that may include antibiotics, CHF management and blood transfusion. She does not want a GI consult or endoscopy. Both patient and daughter clearly indicated if she starts to bleed or if she continues to d eteriorate with worsening respiratory failure they would want to initiate end-of-life care without aggressive intervention. Acute kidney injury on chronic kidney disease stage 4, present on arrival. Fluid retention requiring diuretics. Recent work up: Urinalysis on 05/07/19: Yellow, Hazy, pH 6.0, SG 1.012, protein negative, occult blood negative, leukocyte esterase 250. Urine random total protein/creatinine on 05/07/19: 370 mg/g creatinine. Free [place]/Lambda ratio on 09/17/18: 3.123. CT Abdomen and Pelvis without contrast on 05/28/19: There is moderate bilateral renal atrophy: left kidney is 7 cm in length and the right kidney is 8 cm in length. No focal renal lesions. Progress: Urine output: 450 ml reported in the past 24 hours. Serum creatinine decreased from 3.2 to 3.1 in the past 24 hours; eGFR ~14. Recommendations/Plan: Anticipate no hemodialysis need. Avoid NSAIDs, nephrotoxic medications and IV contrast. Monitor BMP and urine output. Status: Acute Priority: High Qualifiers: Acute renal failure type: unspecified Chronic kidney disease stage: stage 4 (severe) Qualified Code(s): N17.9 - Acute kidney failure, unspecified; N18.4 - Chronic kidney disease, stage 4 (severe)
[2019-06-19 08:25] LABS: Anisocytosis 1+ (NONE SEEN); Eosinophils % (Manual) 2 % (0-7); Hypochromasia 1+ (NONE SEEN); Lymphocytes % 14 % (15-49); Monocytes % (Manual) 5 % (1-12); Ovalocytes FEW (NONE SEEN); Platelet Estimate NORMAL (NORMAL); RBC Fragments RARE (NONE SEEN); RBC Morphology ABNORM (NORMAL); Segmented Neutrophils % 79 % (38-78)
[2019-06-19] MEDS: MULTIVIT,THER IRON,CA,FA & MIN 1 TABLET PO SCH (08:31)
[2019-06-19] MEDS: valACYclovir 500 MG TABLET PO SCH (08:31)
[2019-06-19] MEDS: CALCITRIOL 0.25 MCG CAPSULE PO SCH ×2 (08:31→20:09)
[2019-06-19] MEDS: METOPROLOL SUCCINATE 25 MG TAB.XL.24H PO SCH (08:31)
[2019-06-19] MEDS: DOCUSATE SODIUM 100 MG CAPSULE PO SCH ×2 (08:31→20:10)
[2019-06-19] MEDS: THIAMINE 100 MG TABLET PO SCH (08:31)
--- NOTE | 2019-06-19 08:31 | XRay Report ---
CLINICAL INFORMATION: Follow up infiltrate COMPARISON: 06/17/2019 FINDINGS: Moderate cardiomegaly is unchanged. Large hiatal hernia again noted. Pacemaker leads in stable satisfactory position. Mediastinum is otherwise normal. Pulmonary vessels are unremarkable. Moderate right basilar infiltrate and effusion are unchanged. Minor atelectasis seen in the left base as before IMPRESSION: No change in moderate right basilar infiltrate and effusion. Interval resolution CHF Large hiatal hernia - stable Interpreted and Authenticated by: Jg Perry 06/19/19
[2019-06-19] MEDS: ASCORBIC ACID 500 MG TABLET PO SCH (08:32)
[2019-06-19] MEDS: FOLIC ACID 1 MG TABLET PO SCH (08:32)
[2019-06-19] MEDS: TORSEMIDE 10 MG TABLET PO SCH (08:32)
[2019-06-19] MEDS: ALLOPURINOL 100 MG TABLET PO SCH (08:32)
[2019-06-19] MEDS: DILTIAZEM 180 MG CAP.XL.24H PO SCH (08:32)
[2019-06-19] MEDS: POTASSIUM CHLORIDE 20 MEQ TABLET PO SCH (08:35)
[2019-06-19] MEDS ORDERED: DILTIAZEM 120 MG CAP.XL.24H PO SCH (09:00)
[2019-06-19] MEDS: APIXABAN 2.5 MG TABLET PO SCH ×2 (09:47→20:09)
--- NOTE | 2019-06-19 10:25 | Internal Med Progress Note ---
Medical - PN: Subj Patient information: Note initiated : 06/19/19 at 10:17 am Service Date, if different from initiated Date: [] Patient: Dania Em a 79 y/o F admitted on 06/17/19 for SOBRupertneno. Chief Complaint: [] Interval history: Ms. Em is a 79 year old F with a history of DM type II who spent around 20 days in between different hospitals with what started his upper GI bleed followed by bowel perforation that required exploratory laparotomy and subsequent closure performed by Dr. Alanis at [place]. She underwent PEG tube placement to anchor stomach to the abdominal wall due to sliding esophageal hernia. She was transferred after 10 days hospitalization to [facility] for swing bed admission however within 2 hours patient had a massive aspiration episode and was subsequently flown back to [facility] in [place] for critical care needs. She spent additional 8 days recovering and was discharged home on 06/16. White count 10.3, INR 10.4, creatinine 3.5 Early this morning her daughter discovered her gasping for air with gurgling sound after patient attempted to drink water. She was about to be hypoxic and was brought into the ER. Initial work-up was consistent with bilateral lower lobes infiltrates consistent with pneumonia along with CHF findings. Hospitalist service was consulted, at the time evaluation patient is accompanied with her daughter Tiffani. She was able to answer most the question. Patient is alert and respond to commands. Both patient and daughter now affirmed that they would not want to be transferred to tertiary center and she would want to be DNR but would want full medical intervention that may include antibiotics/CHF management, they would also want INR reversed but did not want a GI consult or endoscopy. Furthermore they would not want blood transfusion. Both patient and daughter clearly indicated if she starts to bleed or if she continues to deteriorate with worsening respiratory failure they would want to initiate end- of-life care without aggressive intervention. She denies chest pain, lightheadedness, dizziness. She is short of breath and unable to talk in full sentences. Denies fever chills diarrhea 06/18-patient doing well. No overnight events. Diuresing well. Improved shortness of breath. Able to talk in near full sentences. Improved mental status. Blistering rash left arm extensor aspect/palm but no pain. Improving lymphedema. Rivera is draining clear urine. Nephrology on board. Repeat INR pe nding. White count 9.6, creatinine 3.2 06/19-patient doing remarkably better. Diuresing well over 3000 cc. White count downtrending. Much improved nonlabored breathing. No family at bedside. Pat ient alert and sitting on chair. No further episodes of aspiration or fever chills or concerns per staff. Hemoglobin 8.1. INR now 1.5 down from 10.4. Started on Eliquis renal dosing. Creatinine improving down to 3.1. Continue aggressive diuresis. Nephrology on board. Continue aggressive PT OT/nutrition support. Anticipate transition to swing bed/SNF in the next 48 to 72 hours if continues to improve clinically - Constitutional Vitals: Vital Signs Temp Pulse Resp BP Pulse Ox 97.9 F 74 20 144/80 97 06/19/19 08:00 06/19/19 06:16 06/19/19 10:10 06/19/19 10:10 06/19/19 10:10 Period Temp Pulse Resp BP Sys/Chavez Pulse Ox Last 24 Hr 97.4 F-98.4 F 74-90 18-28 128-157/60-82 91-97 Intake and Output 06/18/19 06/19/19 06/19/19 21:59 05:59 13:59 Intake Total 540 240 445 Output Total 600 1175 700 Balance -60 -935 -255 Weight 269 lb 11.2 oz Intake & Output: Intake & Output 06/18/19 06/19/19 06/19/19 21:59 05:59 13:59 Intake Total 540 240 445 Output Total 600 1175 700 Balance -60 -935 -255 Weight 269 lb 11.2 oz Intake: Oral 540 240 445 Output: Urine Catheter Amount 600 1175 700 Other: Meal Dinner Breakfast Percent of Meal Consumed 100% 75% Feeding Ability Needs Supervision Urine Appearance Clear Clear Clear Uretheral (Rivera) Clear Clear Urine Color Bright Yellow Bright Yellow Bright Yellow Uretheral (Rivera) Bright Yellow Bright Yellow Urine Odor Normal Normal Stool Size Small Smear Stool Color Brown Brown Stool Consistency Soft Formed General appearance: morbidly obese Exam: Nondistressed On 1 L oxygen Non-labored breathing No anxiety Improving lymphedema Nondistended abdomen Medical - PN: Obj Da - Labs CBC & Chem 7: 06/19/19 05:10 06/19/19 05:10 Labs: Abnormal Lab Results 06/19/19 06/19/19 06/19/19 05:10 05:10 05:10 RBC 2.83 L Hgb 8.1 L Hct 27.0 L MCHC 30.0 L RDW 18.4 H MPV 10.9 H Gran % Lymph % (Auto) Gran # Lymph # (Auto) Seg Neutrophils % 79 H Lymphocytes % 14 L RBC Morphology Abnorm A Hypochromasia 1+ A Anisocytosis 1+ A Ovalocytes Few A RBC Fragments Rare A PT 17.8 H INR 1.5 H Anion Gap 19.0 H BUN 65 H Creatinine 3.1 H Glucose Uric Acid 15.5 H Lactate Dehydrogenase 445 H NT-Pro-B Natriuret Pep 06/18/19 06/18/19 06/18/19 11:28 05:20 05:20 RBC 2.59 L Hgb 7.3 L Hct 25.1 L MCHC 29.1 L RDW 18.5 H MPV 11.2 H Gran % Lymph % (Auto) Gran # Lymph # (Auto) Seg Neutrophils % 86 H Lymphocytes % 10 L RBC Morphology Abnorm A Hypochromasia 1+ A Anisocytosis 1+ A Ovalocytes RBC Fragments PT 23.2 H INR 2.1 H Anion Gap 18.0 H BUN 65 H Creatinine 3.2 H Glucose Uric Acid 15.4 H Lactate Dehydrogenase 375 H NT-Pro-B Natriuret Pep 06/17/19 06/17/19 06/17/19 11:02 11:02 11:02 RBC 2.62 L Hgb 7.5 L Hct 25.2 L MCHC 29.8 L RDW 18.3 H MPV 10.8 H Gran % 88.6 H Lymph % (Auto) 4.7 L Gran # 9.10 H Lymph # (Auto) 0.48 L Seg Neutrophils % Lymphocytes % RBC Morphology Hypochromasia Anisocytosis Ovalocytes RBC Fragments PT 79.7 H INR 10.4 H* Anion Gap 19.0 H BUN 61 H Creatinine 3.5 H Glucose 162 H Uric Acid Lactate Dehydrogenase NT-Pro-B Natriuret Pep 8540.0 H Meds: Medications Acetaminophen (Tylenol) 650 mg PO Q4-6HP PRN; Protocol PRN Reason: Per Pain Protocol/Fever > 101 Last Admin: 06/19/19 06:12 Dose: 650 mg Documented by: Albuterol/Ipratropium (Duoneb) 3 ml NEB Q4HP PRN PRN Reason: Shortness Of Breath Last Admin: 06/19/19 07:44 Dose: 3 ml Documented by: Allopurinol (Zyloprim) 100 mg PO QDAY [facility] Last Admin: 06/19/19 08:32 Dose: 100 mg Documented by: Apixaban (Eliquis) 2.5 mg PO BID [facility] Last Admin: 06/19/19 09:47 Dose: 2.5 mg Documented by: Ascorbic Acid (Vitamin C) 500 mg PO DAILY [facility] Last Admin: 06/19/19 08:32 Dose: 500 mg Documented by: Atorvastatin Calcium (Lipitor) 10 mg PO HS [facility] Last Admin: 06/18/19 21:37 Dose: 10 mg Documented by: Bisacodyl (Dulcolax) 10 mg CO Q2-3DAYS PRN PRN Reason: Constipation Calcitriol (Rocaltrol) 0.25 mcg PO BID [facility] Last Admin: 06/19/19 08:31 Dose: 0.25 mcg Documented by: Dextrose (Dextrose 50%) 0 ml IV UD PRN PRN Reason: Hypoglycemia Diagnostic Test (Pha) (Accu-Chek) 1 each FS ACHS [facility] Last Admin: 06/19/19 07:05 Dose: 1 each Documented by: Diltiazem HCl (Cardizem Cd) 360 mg PO DAILY [facility] Last Admin: 06/19/19 08:32 Dose: 360 mg Documented by: Docusate Sodium (Colace) 100 mg PO BID [facility] Last Admin: 06/19/19 08:31 Dose: 100 mg Documented by: Folic Acid (Folic Acid) 1 mg PO DAILY [facility] Last Admin: 06/19/19 08:32 Dose: 1 mg Documented by: Furosemide (Lasix) 40 mg IV Q8 [facility] Last Admin: 06/19/19 06:02 Dose: 40 mg Documented by: Glucose (Insta-Glucose) 15 gm PO PRN PRN PRN Reason: Hypoglycemia Acetaminophen (Ofirmev) 650 mg in 65 mls @ 130 mls/hr IV Q6HP PRN; Protocol PRN Reason: Per Pain Protocol/Fever > 101 Magnesium Sulfate (Magnesium Sulfate) 2 gm in 50 mls @ 50 mls/hr IV UD PRN PRN Reason: MG = or < 1.7 Insulin Human Lispro (Humalog) 0 unit SQ ACHS [facility]; Protocol Last Admin: 06/19/19 07:09 Dose: Not Given Documented by: Iron Carb/Multivit/Manuelito/Folic Acid (Multivitamin W/Minerals) 1 tab PO DAILY [facility] Last Admin: 06/19/19 08:31 Dose: 1 tab Documented by: Levothyroxine Sodium (Synthroid) 150 mcg PO QAMAC [facility] Last Admin: 06/19/19 07:45 Dose: 150 mcg Documented by: Melatonin (Melatonin 3mg Tablet) 3 mg PO HSP PRN PRN Reason: Insomnia Metoprolol Succinate (Toprol Xl) 25 mg PO DAILY [facility] Last Admin: 06/19/19 08:31 Dose: 25 mg Documented by: Omeprazole (Prilosec) 40 mg PO BIDAC [facility] Last Admin: 06/19/19 07:43 Dose: 40 mg Documented by: Ondansetron HCl (Zofran Odt) 4 mg SL Q4-6HP PRN; Protocol PRN Reason: Nausea And Vomiting Ondansetron HCl (Zofran) 4 mg IV Q4-6HP PRN; Protocol PRN Reason: Nausea And Vomiting Epoetin Connor-Epbx [ Retacrit] 10,000 Unit Vial 1 dose SUB-Q .3X/WEEK [facility] Polyethylene Glycol (Miralax) 17 gm PO DAILYP PRN PRN Reason: Constipation Potassium Chloride (Klor-Con) 40 meq PO DAILYP PRN PRN Reason: K+ < 3.5 Potassium Chloride (Kdur) 40 meq PO QAC [facility] Last Admin: 06/19/19 08:35 Dose: 40 meq Documented by: Senna/Docusate Sodium (Senna Plus Tablet) 1 tab PO HS [facility] Last Admin: 06/18/19 21:37 Dose: Not Given Documented by: Sodium Chloride (Saline Flush) 10 ml IV Q8 [facility] Last Admin: 06/19/19 06:02 Dose: 10 ml Documented by: Thiamine HCl (Vitamin B1) 100 mg PO DAILY [facility] Last Admin: 06/19/19 08:31 Dose: 100 mg Documented by: Torsemide (Demadex) 40 mg PO DAILY [facility] Last Admin: 06/19/19 08:32 Dose: 40 mg Documented by: Valacyclovir HCl (Valtrex) 1,000 mg PO DAILY [facility] Last Admin: 01/24/20 08:31 Dose: 1,000 mg Documented by: Medical - PN: A/P - Time Spent With Patient Total time spent is greater than 50% in coordination of care (as documented) at patient's floor/unit and/or counseling patient: 25 - 35 minutes (1) Acute decompensated heart failure Status: Acute Assessment and plan: * History of NYHA class III diastolic heart failure with acute decompensation- clinically improving with aggressive diuresis. Echocardiogram on 2019 elevated pulmonary artery pressures/normal EF. * Hypoxic respiratory failure secondary CHF/aspiration pneumonia clinically improving with aggressive diuresis and improving pulmonary status. * Aspiration pneumonia with chemical pneumonitis. Continue aspiration precautions/ST eval/modified diet and elevate HOB. No indication for antibiotics * Vesiculopapular rash left arm possible shingles -continue PO valtrex * Supratherapeutic INR reversed with 2.5 mg vitamin K. Now started on Eliquis for CVA prophylaxis, ( wild-swinging INR with Coumadin) echocardiogram no evidence of valvular insufficiency. * Recent exploratory laparotomy. Patient is scheduled to follow-up with surgery Dr. Dougherty in 2-3 weeks at [facility] * Hiatal hernia with PEG tube placement, can be used for feeding as per daughter. However tolerating diet p.o. * History of paroxysmal atrial fibrillation currently rate controlled. Switch to renally adjusted Eliquis * Recent upper GI bleed-clinically resolved. Status post upper endoscopy. On PPI. Hemoglobin stable at 8.1, no evidence of further bleed * DM type II continue basal prandial insulin/CC diet * Chronic kidney disease stage IV, creatinine improving from 3.5-3.1. Nephrology on board. 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 Hemoglobin stable at 8.1 * Full code Plan * Continue aspiration precautions/elevate HOB/pulmonary toilet * Continue diuresis * Diet per ST recommendations * PEG tube care * Free water restriction to 1500 cc a day * Anticoagulation on Eliquis * Pre-existing medical condition management on home meds * Discharge planning likely SNF/swing bed in 48 hours Current Visit: Yes
--- NOTE | 2019-06-19 13:47 | Internal Med Progress Note ---
Medical - PN: Subj Patient information: Note initiated : 06/19/19 at 1:40 pm Service Date, if different from initiated Date: [] Patient: Dania Em a 79 y/o F admitted on 06/17/19 for SOBRupertneno. Chief Complaint: [] Interval history: Ms. Em is a 79 year old F with a history of DM type II who spent around 20 days in between different hospitals with what started his upper GI bleed followed by bowel perforation that required exploratory laparotomy and subsequent closure performed by Dr. Alanis at [facility]. She underwent PEG tube placement to anchor stomach to the abdominal wall due to sliding esophageal hernia. She was transferred after 10 days hospitalization to [facility] for swing bed admission however within 2 hours patient had a massive aspiration episode and was subsequently flown back to [facility] in [place] for critical care needs. She spent additional 8 days recovering and was discharged home on 06/16. White count 10.3, INR 10.4, creatinine 3.5 Early this morning her daughter discovered her gasping for air with gurgling sound after patient attempted to drink water. She was about to be hypoxic and was brought into the ER. Initial work-up was consistent with bilateral lower lobes infiltrates consistent with pneumonia along with CHF findings. Hospitalist service was consulted, at the time evaluation patient is accompanied with her daughter Tiffani. She was able to answer most the question. Patient is alert and respond to commands. Both patient and daughter now affirmed that they would not want to be transferred to tertiary center and she would want to be DNR but would want full medical intervention that may include antibiotics/CHF management, they would also want INR reversed but did not want a GI consult or endoscopy. Furthermore they would not want blood transfusion. Both patient and daughter clearly indicated if she starts to bleed or if she continues to deteriorate with worsening respiratory failure they would want to initiate end-of-life care without aggressive intervention. She denies chest pain, lightheadedness, dizziness. She is short of breath and unable to talk in full sentences. Denies fever chills diarrhea 06/18-patient doing well. No overnight events. Diuresing well. Improved shortness of breath. Able to talk in near full sentences. Improved mental status. Blistering rash left arm extensor aspect/palm but no pain. Improving lymphedema. Rivera is draining clear urine. Nephrology on board. Repeat INR pending. White count 9.6, creatinine 3.2 06/19-patient doing remarkably better. Diuresing well over 3000 cc. White count downtrending. Much improved nonlabored breathing. No family at bedside. Patient alert and sitting on chair. No further episodes of aspiration or fever chills or concerns per staff. Hemoglobin 8.1. INR now 1.5 down from 10.4. Started on Eliquis renal dosing. Creatinine improving down to 3.1. Continue aggressive diuresis. Nephrology on board. Continue aggressive PT OT/nutrition support. Anticipate transition to swing bed/SNF in the next 48 to 72 hours if continues to improve clinically - Constitutional Vitals: Vital Signs Temp Pulse Resp BP Pulse Ox 97.2 F 74 20 140/63 95 06/19/19 12:00 06/19/19 06:16 06/19/19 12:00 06/19/19 12:00 06/19/19 12:00 Period Temp Pulse Resp BP Sys/Chavez Pulse Ox Last 24 Hr 97.2 F-98.4 F 74-90 18-28 128-156/60-82 91-97 Intake and Output 06/18/19 06/19/19 06/19/19 21:59 05:59 13:59 Intake Total 540 240 445 Output Total 600 1175 700 Balance -60 -935 -255 Weight 122.334 kg Intake & Output: Intake & Output 06/18/19 06/19/19 06/19/19 21:59 05:59 13:59 Intake Total 540 240 445 Output Total 600 1175 700 Balance -60 -935 -255 Weight 122.334 kg Intake: Oral 540 240 445 Output: Urine Catheter Amount 600 1175 700 Other: Meal Dinner Breakfast Percent of Meal Consumed 100% 75% Feeding Ability Needs Supervision Urine Appearance Clear Clear Clear Uretheral (Rivera) Clear Clear Clear Urine Color Bright Yellow Bright Yellow Bright Yellow Uretheral (Rivera) Bright Yellow Bright Yellow Bright Yellow Urine Odor Normal Normal Stool Size Small Smear Stool Color Brown Brown Stool Consistency Soft Formed Exam: General: Alert, Awake, No acute Distress, obese Eyes/N/T: EOMI, Head/Neck: neck supple, CV: RRR, No murmurs, Pulm: Clear b/l, no wheezing/rhonchi/rales Abd: soft, nontender, +BS x4 Ext: no clubbing/cyanosis, + b/l LE edema Neuro: Alert, no focal deficits, moves all extremities, Skin: warm/dry Medical - PN: Obj Da - Labs CBC & Chem 7: 06/19/19 05:10 06/19/19 05:10 Labs: Abnormal Lab Results 06/19/19 06/19/19 06/19/19 05:10 05:10 05:10 RBC 2.83 L Hgb 8.1 L Hct 27.0 L MCHC 30.0 L RDW 18.4 H MPV 10.9 H Gran % Lymph % (Auto) Gran # Lymph # (Auto) Seg Neutrophils % 79 H Lymphocytes % 14 L RBC Morphology Abnorm A Hypochromasia 1+ A Anisocytosis 1+ A Ovalocytes Few A RBC Fragments Rare A PT 17.8 H INR 1.5 H Anion Gap 19.0 H BUN 65 H Creatinine 3.1 H Glucose Uric Acid 15.5 H Lactate Dehydrogenase 445 H NT-Pro-B Natriuret Pep 06/18/19 06/18/19 06/18/19 11:28 05:20 05:20 RBC 2.59 L Hgb 7.3 L Hct 25.1 L MCHC 29.1 L RDW 18.5 H MPV 11.2 H Gran % Lymph % (Auto) Gran # Lymph # (Auto) Seg Neutrophils % 86 H Lymphocytes % 10 L RBC Morphology Abnorm A Hypochromasia 1+ A Anisocytosis 1+ A Ovalocytes RBC Fragments PT 23.2 H INR 2.1 H Anion Gap 18.0 H BUN 65 H Creatinine 3.2 H Glucose Uric Acid 15.4 H Lactate Dehydrogenase 375 H NT-Pro-B Natriuret Pep 06/17/19 06/17/19 06/17/19 11:02 11:02 11:02 RBC 2.62 L Hgb 7.5 L Hct 25.2 L MCHC 29.8 L RDW 18.3 H MPV 10.8 H Gran % 88.6 H Lymph % (Auto) 4.7 L Gran # 9.10 H Lymph # (Auto) 0.48 L Seg Neutrophils % Lymphocytes % RBC Morphology Hypochromasia Anisocytosis Ovalocytes RBC Fragments PT 79.7 H INR 10.4 H* Anion Gap 19.0 H BUN 61 H Creatinine 3.5 H Glucose 162 H Uric Acid Lactate Dehydrogenase NT-Pro-B Natriuret Pep 8540.0 H Meds: Medications Acetaminophen (Tylenol) 650 mg PO Q4-6HP PRN; Protocol PRN Reason: Per Pain Protocol/Fever > 101 Last Admin: 06/19/19 06:12 Dose: 650 mg Documented by: Albuterol/Ipratropium (Duoneb) 3 ml NEB Q4HP PRN PRN Reason: Shortness Of Breath Last Admin: 06/19/19 07:44 Dose: 3 ml Documented by: Allopurinol (Zyloprim) 100 mg PO QDAY [facility] Last Admin: 06/19/19 08:32 Dose: 100 mg Documented by: Apixaban (Eliquis) 2.5 mg PO BID [facility] Last Admin: 06/19/19 09:47 Dose: 2.5 mg Documented by: Ascorbic Acid (Vitamin C) 500 mg PO DAILY [facility] Last Admin: 06/19/19 08:32 Dose: 500 mg Documented by: Atorvastatin Calcium (Lipitor) 10 mg PO HS [facility] Last Admin: 06/18/19 21:37 Dose: 10 mg Documented by: Bisacodyl (Dulcolax) 10 mg NE Q2-3DAYS PRN PRN Reason: Constipation Calcitriol (Rocaltrol) 0.25 mcg PO BID [facility] Last Admin: 06/19/19 08:31 Dose: 0.25 mcg Documented by: Dextrose (Dextrose 50%) 0 ml IV UD PRN PRN Reason: Hypoglycemia Diagnostic Test (Pha) (Accu-Chek) 1 each FS ACHS [facility] Last Admin: 06/19/19 12:09 Dose: 1 each Documented by: Diltiazem HCl (Cardizem Cd) 360 mg PO DAILY [facility] Last Admin: 06/19/19 08:32 Dose: 360 mg Documented by: Docusate Sodium (Colace) 100 mg PO BID [facility] Last Admin: 06/19/19 08:31 Dose: 100 mg Documented by: Folic Acid (Folic Acid) 1 mg PO DAILY [facility] Last Admin: 06/19/19 08:32 Dose: 1 mg Documented by: Glucose (Insta-Glucose) 15 gm PO PRN PRN PRN Reason: Hypoglycemia Acetaminophen (Ofirmev) 650 mg in 65 mls @ 130 mls/hr IV Q6HP PRN; Protocol PRN Reason: Per Pain Protocol/Fever > 101 Magnesium Sulfate (Magnesium Sulfate) 2 gm in 50 mls @ 50 mls/hr IV UD PRN PRN Reason: MG = or < 1.7 Insulin Human Lispro (Humalog) 0 unit SQ ACHS [facility]; Protocol Last Admin: 06/19/19 13:09 Dose: 1 unit Documented by: Iron Carb/Multivit/Mineral Economist/Folic Acid (Multivitamin W/Minerals) 1 tab PO DAILY [facility] Last Admin: 06/19/19 08:31 Dose: 1 tab Documented by: Levothyroxine Sodium (Synthroid) 150 mcg PO QAMAC [facility] Last Admin: 06/19/19 07:45 Dose: 150 mcg Documented by: Melatonin (Melatonin 3mg Tablet) 3 mg PO HSP PRN PRN Reason: Insomnia Metoprolol Succinate (Toprol Xl) 25 mg PO DAILY [facility] Last Admin: 06/19/19 08:31 Dose: 25 mg Documented by: Omeprazole (Prilosec) 40 mg PO BIDAC [facility] Last Admin: 06/19/19 07:43 Dose: 40 mg Documented by: Ondansetron HCl (Zofran Odt) 4 mg SL Q4-6HP PRN; Protocol PRN Reason: Nausea And Vomiting Ondansetron HCl (Zofran) 4 mg IV Q4-6HP PRN; Protocol PRN Reason: Nausea And Vomiting Epoetin Connor-Epbx [ Retacrit] 10,000 Unit Vial 1 dose SUB-Q .3X/WEEK [facility] Polyethylene Glycol (Miralax) 17 gm PO DAILYP PRN PRN Reason: Constipation Potassium Chloride (Klor-Con) 40 meq PO DAILYP PRN PRN Reason: K+ < 3.5 Potassium Chloride (Kdur) 40 meq PO QAMCC [facility] Last Admin: 06/19/19 08:35 Dose: 40 meq Documented by: Senna/Docusate Sodium (Senna Plus Tablet) 1 tab PO HS [facility] Last Admin: 06/18/19 21:37 Dose: Not Given Documented by: Sodium Chloride (Saline Flush) 10 ml IV Q8 [facility] Last Admin: 06/19/19 13:09 Dose: 10 ml Documented by: Thiamine HCl (Vitamin B1) 100 mg PO DAILY [facility] Last Admin: 06/19/19 08:31 Dose: 100 mg Documented by: Torsemide (Demadex) 40 mg PO DAILY [facility] Last Admin: 06/19/19 08:32 Dose: 40 mg Documented by: Valacyclovir HCl (Valtrex) 1,000 mg PO DAILY [facility] Last Admin: 06/19/19 08:31 Dose: 1,000 mg Documented by: Medical - PN: A/P - Time Spent With Patient Total time spent is greater than 50% in coordination of care (as documented) at patient's floor/unit and/or counseling patient: - Narrative A/P Narrative: A: *h/o NYHA class III diastolic CHF w/acute decompensation: clinically improving with aggressive diuresis -Echocardiogram on 2019 elevated pulmonary artery pressures/normal EF. *Hypoxic respiratory failure secondary CHF/aspiration pneumonia: clinically improving *Aspiration chemical pneumonitis: *Vesiculopapular rash left arm possible shingles: *Supratherapeutic INR: reversed with 2.5 mg vitamin K -Now started on Eliquis for CVA prophylaxis, (wild-swinging INR w/Coumadin), echocardiogram no evidence of valvular insufficiency. *Recent exploratory laparotomy:. Patient is scheduled to follow-up with surgery Dr. Dougherty in 2-3 weeks at [facility] *Hiatal hernia with PEG tube placement: can be used for feeding as per daughter. However tolerating diet p.o. *PAF: currently rate controlled *Recent upper GI bleed: clinically resolved. s/p upper endoscopy. 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 Continue free water restriction to 1500 cc -continue PO valtrex -continue basal prandial insulin/CC diet -Discharge planning likely SNF/swing bed in 48 hours -pt/ot -ppx: eliquis Full code
[2019-06-19] MEDS: ATORVASTATIN 20 MG TABLET PO SCH (20:08)
[2019-06-19] MEDS: SENNOSIDES/DOCUSATE SODIUM 1 TAB TABLET PO SCH (20:11)
[2019-06-20] MEDS: IPRATROPIUM/ALBUTEROL 3 ML AMPUL.NEB NEB PRN ×2 (01:30→08:38)
[2019-06-20] MEDS: 0.9 % SODIUM CHLORIDE 10 ML SYRINGE IV SCH ×5 (05:08→21:20)
[2019-06-20 06:54] LABS: Hematocrit 27.9 % (34.1-44.9); Hemoglobin 8.3 g/dL (11.2-15.7); Mean Cell Volume 95.9 fL (80.0-100.0); Mean Corpuscular HGB Conc 29.7 g/dL (31.0-36.0); Mean Platelet Volume 10.6 fL (7.4-10.4); Platelet Count 210 K/mcL (140-440); RBC 2.91 M/mcL (3.59-5.38); Red Cell Distribution Width 18.3 % (11.5-14.5); WBC 6.3 K/mcL (4.50-11.00)
[2019-06-20 07:17] LABS: INR 1.8 (0.9-1.1); Prothrombin Time 20.4 sec (11.9-14.5)
[2019-06-20] MEDS: OMEPRAZOLE 20 MG CAPSULE PO SCH ×2 (07:17→17:02)
[2019-06-20] MEDS: POTASSIUM CHLORIDE 20 MEQ TABLET PO SCH (07:18)
[2019-06-20] MEDS: LEVOTHYROXINE 150 MCG TABLET PO SCH (07:18)
[2019-06-20] MEDS: INSULIN LISPRO 1 UNIT/0.01 ML UNIT SQ SCH ×4 (07:20→21:18)
[2019-06-20 07:29] LABS: Bilirubin,Direct < 0.2 mg/dL (0.0-0.3); Chloride 102 mmol/L (96-108)
[2019-06-20 07:32] LABS: ALT/SGPT 13 U/l (0-40); AST/SGOT 16 U/l (0-37); Albumin 3.3 gm/dL (3.2-5.2); Albumin/Globulin Ratio 1.2 (1.0-2.3); Alkaline Phosphatase 71 U/L (39-117); Bilirubin,Total 0.3 mg/dL (0.0-1.0); Blood Urea Nitrogen 57 mg/dl (8-23); Calcium 8.9 mg/dl (8.6-10.4); Carbon Dioxide 27 mmol/L (22-30); Globulin 2.7 gm/dL (2.2-3.7); Glomerular Filtration Rate 17; Glucose 103 mg/dL (70-105); Lactate Dehydrogenase 349 U/L (94-250); Phosphorous 2.7 mg/dL (2.7-4.5); Triglycerides 63 mg/dl (<150); Uric Acid 15.9 mg/dL (2.5-8.0)
--- NOTE | 2019-06-20 07:32 | Nephrology Progress Note ---
Subjective Patient information: Note initiated : 06/20/19 at 7:29 am Patient: Dania Em 79 y/o F admitted on 06/17/19 for SOB, Shingles. Chief Complaint: Weakness Pertinent ROS: Weakness Edema Shortness of breath Objective - Vital Signs Vital signs: Vital Signs Temp Pulse Pulse Resp BP BP BP 06/20/19 05:05 73 24 H 153/71 06/20/19 04:24 96.6 F L 06/20/19 03:30 73 24 H 149/70 06/20/19 01:12 97.1 F 76 28 H 152/66 06/19/19 23:06 71 28 H 155/69 06/19/19 20:50 97.0 F 69 24 H 130/58 06/19/19 20:24 24 H 06/19/19 19:13 84 24 H 138/71 06/19/19 17:00 97 F 24 H 142/66 06/19/19 16:58 70 14 06/19/19 16:00 97.7 F 20 155/61 06/19/19 15:10 97.8 F 22 139/70 06/19/19 15:00 06/19/19 12:00 97.2 F 20 140/63 06/19/19 10:10 20 144/80 06/19/19 08:00 97.9 F 28 H 151/69 06/19/19 07:59 97.9 F 28 H 151/69 06/19/19 07:30 Pulse Ox 06/20/19 05:05 96 06/20/19 04:24 06/20/19 03:30 96 06/20/19 01:12 94 06/19/19 23:06 94 06/19/19 20:50 94 06/19/19 20:24 06/19/19 19:13 96 06/19/19 17:00 94 06/19/19 16:58 06/19/19 16:00 98 06/19/19 15:10 92 06/19/19 15:00 92 06/19/19 12:00 95 06/19/19 10:10 97 06/19/19 08:00 95 06/19/19 07:59 95 06/19/19 07:30 95 Intake and Output 06/19/19 06/20/19 06/20/19 21:59 05:59 13:59 Intake Total 240 Output Total 900 675 Balance -660 673 Intake: Oral 240 Output: Urine Catheter Amount 900 675 Other: Meal Dinner Percent of Meal Consumed 50% Urine Appearance Sediment Clear Uretheral (Rivera) Clear Urine Color Bright Yellow Bright Yellow Uretheral (Rivera) Bright Yellow Urine Odor Normal Stool Size Small Stool Color Brown Stool Consistency Soft Weight 269 lb 1.6 oz Intake & Output: Intake & Output 06/19/19 06/20/19 06/20/19 21:59 05:59 13:59 Intake Total 240 Output Total 900 675 Balance -660 -670 Weight 269 lb 1.6 oz Intake: Oral 240 Output: Urine Catheter Amount 900 675 Other: Meal Dinner Percent of Meal Consumed 50% Urine Appearance Sediment Clear Uretheral (Rivera) Clear Urine Color Bright Yellow Bright Yellow Uretheral (Rivera) Bright Yellow Urine Odor Normal Stool Size Small Stool Color Brown Stool Consistency Soft - General Appearance General appearance: chronically ill, fatigue EENT: mucous membranes moist Neck: supple Respiratory: course breath sounds Cardiology: edema Gastrointestinal: no tenderness Integumentary: warm and dry Neurologic: no focal deficit, alert and oriented x3 Musculoskeletal: no deformities Psychiatric: mood/affect appropriate, cooperative - Lab 06/20/19 05:15 06/20/19 05:15 Most recent lab results Calcium 9.3 mg/dl (8.6-10.4) 06/19/19 05:10 Phosphorus 2.9 mg/dL (2.7-4.5) 06/19/19 05:10 Magnesium 2.0 mg/dL (1.6-2.5) 06/19/19 05:10 Assessment and Plan (1) Acute on chronic renal failure Dania Em is a 79-year-old female with hypertension, hyperlipidemia, hypothyroidism, chronic obstructive pulmonary disease, diabetes mellitus type 2, chronic kidney disease stage 4, chronic anemia due to kidney disease and iron deficiency, admitted on 06/17/19. She was admitted initially for GI bleed followed by bowel perforation that required exploratory laparotomy and subsequ ently PEG tube placement at [facility]. She was transferred after 10 days hospitalization to [facility] for swing bed admission however within 2 hours patient had a massive aspiration episode and was subsequently flown back to [facility] in [place] for critical care. She spent additional 8 d ays recovering and was discharged home on 06/16/19. She was brought back to ED when her daughter found her gasping for air with gurgling sound after patient attempted to drink water. Initial work-up was consistent with bilateral lower lobes infiltrates consistent with pneumonia along with CHF findings. The patient and her daughter declined transfer to tertiary center. She is DNR. She wants full medical intervention that may include antibiotics, CHF management and blood transfusion. She does not want a GI consult or endoscopy. Both patient and daughter clearly indicated if she starts to bleed or if she continues to deteriorate with worsening respiratory failure they would want to initiate en d-of-life care without aggressive intervention. Acute kidney injury on chronic kidney disease stage 4, present on arrival. Fluid retention requiring diuretics. Recent work up: Urinalysis on 05/07/19: Yellow, Hazy, pH 6.0, SG 1.012, protein negative, occult blood negative, leukocyte esterase 250. Urine random total protein/creatinine on 05/07/19: 370 mg/g creatinine. Free [place]/Lambda ratio on 09/17/18: 3.123. CT Abdomen and Pelvis without contrast on 05/28/19: There is moderate bilateral renal atrophy: left kidney is 7 cm in length and the right kidney is 8 cm in length. No focal renal lesions. Progress: Urine output: 2275 ml reported in the past 24 hours. Serum creatinine decreased from 3.1 to 2.6 in the past 24 hours; eGFR ~17. Recommendations/Plan: Anticipate no hemodialysis need. Avoid NSAIDs, nephrotoxic medications and IV contrast. Monitor BMP and urine output. Status: Acute Priority: High Qualifiers: Acute renal failure type: unspecified Chronic kidney disease stage: stage 4 (severe) Qualified Code(s): N17.9 - Acute kidney failure, unspecified; N18.4 - Chronic kidney disease, stage 4 (severe)
[2019-06-20 07:45] LABS: Anisocytosis 1+ (NONE SEEN); Band Neutrophils % 1 % (0-10); Eosinophils % (Manual) 2 % (0-7); Hypochromasia FEW (NONE SEEN); Lymphocytes % 10 % (15-49); Metamyelocytes % 1 % (0-0); Monocytes % (Manual) 5 % (1-12); Platelet Estimate NORMAL (NORMAL); RBC Morphology ABNORM (NORMAL); Segmented Neutrophils % 81 % (38-78)
--- NOTE | 2019-06-20 08:23 | Internal Med Progress Note ---
Medical - PN: Subj Patient information: Note initiated : 06/20/19 at 8:18 am Service Date, if different from initiated Date: [] Patient: Dania Em a 79 y/o F admitted on 06/17/19 for SOBRupertneno. Chief Complaint: [] Interval history: Ms. Em is a 79 year old F with a history of DM type II who spent around 20 days in between different hospitals with what started his upper GI bleed followed by bowel perforation that required exploratory laparotomy and subsequent closure performed by Dr. Alanis at [facility]. She underwent PEG tube placement to anchor stomach to the abdominal wall due to sliding esophageal hernia. She was transferred after 10 days hospitalization to [facility] for swing bed admission however within 2 hours patient had a massive aspiration episode and was subsequently flown back to [facility] in [place] for critical care needs. She spent additional 8 days recovering and was discharged home on 06/16. White count 10.3, INR 10.4, creatinine 3.5 Early this morning her daughter discovered her gasping for air with gurgling sound after patient attempted to drink water. She was about to be hypoxic and was brought into the ER. Initial work-up was consistent with bilateral lower lobes infiltrates consistent with pneumonia along with CHF findings. Hospitalist service was consulted, at the time evaluation patient is accompanied with her daughter Tiffani. She was able to answer most the question. Patient is alert and respond to commands. Both patient and daughter now affirmed that they would not want to be transferred to tertiary center and she would want to be DNR but would want full medical intervention that may include antibiotics/CHF management, they would also want INR reversed but did not want a GI consult or endoscopy. Furthermore they would not want blood transfusion. Both patient and daughter clearly indicated if she starts to bleed or if she continues to deteriorate with worsening respiratory failure they would want to initiate end-of-life care without aggressive intervention. She denies chest pain, lightheadedness, dizziness. She is short of breath and unable to talk in full sentences. Denies fever chills diarrhea 06/18-patient doing well. No overnight events. Diuresing well. Improved shortness of breath. Able to talk in near full sentences. Improved mental status. Blistering rash left arm extensor aspect/palm but no pain. Improving lymphedema. Rivera is draining clear urine. Nephrology on board. Repeat INR pending. White count 9.6, creatinine 3.2 06/19-patient doing remarkably better. Diuresing well over 3000 cc. White count downtrending. Much improved nonlabored breathing. No family at bedside. Patient alert and sitting on chair. No further episodes of aspiration or fever chills or concerns per staff. Hemoglobin 8.1. INR now 1.5 down from 10.4. Started on Eliquis renal dosing. Creatinine improving down to 3.1. Continue aggressive diuresis. Nephrology on board. Continue aggressive PT OT/nutrition support. Anticipate transition to swing bed/SNF in the next 48 to 72 hours if continues to improve clinically 06/20 No overnight events or new complaints. Good urine output. Creatinine im proving. She states she typically has 2 L of oxygen at night has a history of obstructive sleep apnea but is intolerant to CPAP. - Constitutional Vitals: Vital Signs Temp Pulse Resp BP Pulse Ox 97.2 F 73 20 161/70 97 06/20/19 07:30 06/20/19 05:05 06/20/19 07:30 06/20/19 07:30 06/20/19 07:30 Period Temp Pulse Resp BP Sys/Chavez Pulse Ox Last 24 Hr 96.6 F-97.8 F 69-84 14-28 130-161/58-80 92-98 Intake and Output 06/19/19 06/20/19 06/20/19 21:59 05:59 13:59 Intake Total 240 120 Output Total 900 675 300 Balance -660 675 -180 Weight 122.062 kg Intake & Output: Intake & Output 06/19/19 06/20/19 06/20/19 21:59 05:59 13:59 Intake Total 240 120 Output Total 900 675 300 Balance -660 -675 -180 Weight 122.062 kg Intake: Oral 240 120 Output: Urine Catheter Amount 900 675 300 Other: Meal Dinner Percent of Meal Consumed 50% Urine Appearance Sediment Clear Clear Uretheral (Rivera) Clear Clear Urine Color Bright Yellow Bright Yellow Bright Yellow Uretheral (Rivera) Bright Yellow Dark Yellow Urine Odor Normal Normal Stool Size Small Stool Color Brown Stool Consistency Soft Exam: General: Alert, Awake, No acute Distress, obese Eyes/N/T: EOMI, Head/Neck: neck supple, CV: RRR, No murmurs, Pulm: Clear b/l, no wheezing/rhonchi/rales Abd: soft, nontender, +BS x4 Ext: no clubbing/cyanosis, 2+ b/l LE edema Neuro: Alert, no focal deficits, moves all extremities, Skin: warm/dry Medical - PN: Obj Da - Labs CBC & Chem 7: 06/20/19 05:15 06/20/19 05:15 Labs: Abnormal Lab Results 06/20/19 06/20/19 06/20/19 05:15 05:15 05:15 RBC 2.91 L Hgb 8.3 L Hct 27.9 L MCHC 29.7 L RDW 18.3 H MPV 10.6 H Gran % Lymph % (Auto) Gran # Lymph # (Auto) Seg Neutrophils % 81 H Lymphocytes % 10 L Metamyelocytes % 1 H RBC Morphology Abnorm A Hypochromasia Few A Anisocytosis 1+ A Ovalocytes RBC Fragments PT 20.4 H INR 1.8 H Potassium 3.0 L Anion Gap BUN 57 H Creatinine 2.6 H Glucose Uric Acid 15.9 H Lactate Dehydrogenase 349 H NT-Pro-B Natriuret Pep 06/19/19 06/19/19 06/19/19 05:10 05:10 05:10 RBC 2.83 L Hgb 8.1 L Hct 27.0 L MCHC 30.0 L RDW 18.4 H MPV 10.9 H Gran % Lymph % (Auto) Gran # Lymph # (Auto) Seg Neutrophils % 79 H Lymphocytes % 14 L Metamyelocytes % RBC Morphology Abnorm A Hypochromasia 1+ A Anisocytosis 1+ A Ovalocytes Few A RBC Fragments Rare A PT 17.8 H INR 1.5 H Potassium Anion Gap 19.0 H BUN 65 H Creatinine 3.1 H Glucose Uric Acid 15.5 H Lactate Dehydrogenase 445 H NT-Pro-B Natriuret Pep 06/18/19 06/18/19 06/18/19 11:28 05:20 05:20 RBC 2.59 L Hgb 7.3 L Hct 25.1 L MCHC 29.1 L RDW 18.5 H MPV 11.2 H Gran % Lymph % (Auto) Gran # Lymph # (Auto) Seg Neutrophils % 86 H Lymphocytes % 10 L Metamyelocytes % RBC Morphology Abnorm A Hypochromasia 1+ A Anisocytosis 1+ A Ovalocytes RBC Fragments PT 23.2 H INR 2.1 H Potassium Anion Gap 18.0 H BUN 65 H Creatinine 3.2 H Glucose Uric Acid 15.4 H Lactate Dehydrogenase 375 H NT-Pro-B Natriuret Pep 06/17/19 06/17/19 06/17/19 11:02 11:02 11:02 RBC 2.62 L Hgb 7.5 L Hct 25.2 L MCHC 29.8 L RDW 18.3 H MPV 10.8 H Gran % 88.6 H Lymph % (Auto) 4.7 L Gran # 9.10 H Lymph # (Auto) 0.48 L Seg Neutrophils % Lymphocytes % Metamyelocytes % RBC Morphology Hypochromasia Anisocytosis Ovalocytes RBC Fragments PT 79.7 H INR 10.4 H* Potassium Anion Gap 19.0 H BUN 61 H Creatinine 3.5 H Glucose 162 H Uric Acid Lactate Dehydrogenase NT-Pro-B Natriuret Pep 8540.0 H Meds: Medications Acetaminophen (Tylenol) 650 mg PO Q4-6HP PRN; Protocol PRN Reason: Per Pain Protocol/Fever > 101 Last Admin: 06/19/19 20:09 Dose: 650 mg Documented by: Albuterol/Ipratropium (Duoneb) 3 ml NEB Q4HP PRN PRN Reason: Shortness Of Breath Last Admin: 06/20/19 01:30 Dose: 3 ml Documented by: Allopurinol (Zyloprim) 100 mg PO QDAY [facility] Last Admin: 06/19/19 08:32 Dose: 100 mg Documented by: Apixaban (Eliquis) 2.5 mg PO BID [facility] Last Admin: 06/19/19 20:09 Dose: 2.5 mg Documented by: Ascorbic Acid (Vitamin C) 500 mg PO DAILY [facility] Last Admin: 06/19/19 08:32 Dose: 500 mg Documented by: Atorvastatin Calcium (Lipitor) 10 mg PO HS [facility] Last Admin: 06/19/19 20:08 Dose: 10 mg Documented by: Bisacodyl (Dulcolax) 10 mg VA Q2-3DAYS PRN PRN Reason: Constipation Calcitriol (Rocaltrol) 0.25 mcg PO BID [facility] Last Admin: 06/19/19 20:09 Dose: 0.25 mcg Documented by: Dextrose (Dextrose 50%) 0 ml IV UD PRN PRN Reason: Hypoglycemia Diagnostic Test (Pha) (Accu-Chek) 1 each FS [facility] Last Admin: 06/20/19 07:20 Dose: 1 each Documented by: Diltiazem HCl (Cardizem Cd) 360 mg PO DAILY [facility] Last Admin: 06/19/19 08:32 Dose: 360 mg Documented by: Docusate Sodium (Colace) 100 mg PO BID [facility] Last Admin: 06/19/19 20:10 Dose: Not Given Documented by: Folic Acid (Folic Acid) 1 mg PO DAILY [facility] Last Admin: 06/19/19 08:32 Dose: 1 mg Documented by: Glucose (Insta-Glucose) 15 gm PO PRN PRN PRN Reason: Hypoglycemia Acetaminophen (Ofirmev) 650 mg in 65 mls @ 130 mls/hr IV Q6HP PRN; Protocol PRN Reason: Per Pain Protocol/Fever > 101 Magnesium Sulfate (Magnesium Sulfate) 2 gm in 50 mls @ 50 mls/hr IV UD PRN PRN Reason: MG = or < 1.7 Insulin Human Lispro (Humalog) 0 unit SQ [facility]; Protocol Last Admin: 06/20/19 07:20 Dose: Not Given Documented by: Iron Carb/Multivit/Barron/Folic Acid (Multivitamin W/Minerals) 1 tab PO DAILY [facility] Last Admin: 06/19/19 08:31 Dose: 1 tab Documented by: Levothyroxine Sodium (Synthroid) 150 mcg PO QAMAC [facility] Last Admin: 06/20/19 07:18 Dose: 150 mcg Documented by: Melatonin (Melatonin 3mg Tablet) 3 mg PO HSP PRN PRN Reason: Insomnia Metoprolol Succinate (Toprol Xl) 25 mg PO DAILY [facility] Last Admin: 06/19/19 08:31 Dose: 25 mg Documented by: Omeprazole (Prilosec) 40 mg PO BIDAC [facility] Last Admin: 06/20/19 07:17 Dose: 40 mg Documented by: Ondansetron HCl (Zofran Odt) 4 mg SL Q4-6HP PRN; Protocol PRN Reason: Nausea And Vomiting Ondansetron HCl (Zofran) 4 mg IV Q4-6HP PRN; Protocol PRN Reason: Nausea And Vomiting Epoetin Connor-Epbx [ Retacrit] 10,000 Unit Vial 1 dose SUB-Q .3X/WEEK [facility] Polyethylene Glycol (Miralax) 17 gm PO DAILYP PRN PRN Reason: Constipation Potassium Chloride (Klor-Con) 40 meq PO DAILYP PRN PRN Reason: K+ < 3.5 Potassium Chloride (Kdur) 40 meq PO QAMCC [facility] Last Admin: 06/20/19 07:18 Dose: 40 meq Documented by: Senna/Docusate Sodium (Senna Plus Tablet) 1 tab PO HS [facility] Last Admin: 06/19/19 20:11 Dose: Not Given Documented by: Sodium Chloride (Saline Flush) 10 ml IV Q8 [facility] Last Admin: 06/20/19 07:18 Dose: 10 ml Documented by: Thiamine HCl (Vitamin B1) 100 mg PO DAILY [facility] Last Admin: 06/19/19 08:31 Dose: 100 mg Documented by: Torsemide (Demadex) 40 mg PO DAILY [facility] Last Admin: 06/19/19 08:32 Dose: 40 mg Documented by: Valacyclovir HCl (Valtrex) 1,000 mg PO DAILY [facility] Last Admin: 06/19/19 08:31 Dose: 1,000 mg Documented by: Medical - PN: A/P - Time Spent With Patient Total time spent is greater than 50% in coordination of care (as documented) at patient's floor/unit and/or counseling patient: - Narrative A/P Narrative: A: *h/o NYHA class III diastolic CHF w/acute decompensation: clinically improving with aggressive diuresis -Echocardiogram on 2019 elevated pulmonary artery pressures/normal EF. -good diuresis *Hypoxic respiratory failure secondary CHF/aspiration pneumonia (wears 2L NC @night): clinically improving *Aspiration chemical pneumonitis: *BRENNA, intolerant of CPAP *Vesiculopapular rash left arm possible shingles: *Supratherapeutic INR: reversed with 2.5 mg vitamin K -Now started on Eliquis for CVA prophylaxis, (wild-swinging INR w/Coumadin), echocardiogram no evidence of valvular insufficiency. *Recent exploratory laparotomy:. Patient is scheduled to follow-up with surgery Dr. Dougherty in 2-3 weeks at [facility] *Hiatal hernia with PEG tube placement: can be used for feeding as per daughter. However tolerating diet p.o. *PAF: currently rate controlled *Recent upper GI bleed: clinically resolved. s/p upper endoscopy. 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 Continue free water restriction to 1500 cc -continue PO valtrex -continue basal prandial insulin/CC diet -Discharge planning likely SNF/swing bed in 48 hours -pt/ot -ppx: eliquis (warfarin stopped) Full code
[2019-06-20] MEDS: TORSEMIDE 10 MG TABLET PO SCH (09:33)
[2019-06-20] MEDS: valACYclovir 500 MG TABLET PO SCH (09:33)
[2019-06-20] MEDS: DILTIAZEM 180 MG CAP.XL.24H PO SCH (09:34)
[2019-06-20] MEDS: THIAMINE 100 MG TABLET PO SCH (09:35)
[2019-06-20] MEDS: CALCITRIOL 0.25 MCG CAPSULE PO SCH ×2 (09:35→23:17)
[2019-06-20] MEDS: FOLIC ACID 1 MG TABLET PO SCH (09:36)
[2019-06-20] MEDS: METOPROLOL SUCCINATE 25 MG TAB.XL.24H PO SCH (09:36)
[2019-06-20] MEDS: MULTIVIT,THER IRON,CA,FA & MIN 1 TABLET PO SCH (09:36)
[2019-06-20] MEDS: ALLOPURINOL 100 MG TABLET PO SCH (09:36)
[2019-06-20] MEDS: ASCORBIC ACID 500 MG TABLET PO SCH (09:36)
[2019-06-20] MEDS: APIXABAN 2.5 MG TABLET PO SCH ×2 (09:36→23:18)
[2019-06-20] MEDS: DOCUSATE SODIUM 100 MG CAPSULE PO SCH ×2 (09:37→23:20)
[2019-06-20] MEDS: ACETAMINOPHEN 325 MG TABLET PO PRN ×2 (11:55→23:18)
[2019-06-20] MEDS: ATORVASTATIN 20 MG TABLET PO SCH (23:18)
[2019-06-20] MEDS: SENNOSIDES/DOCUSATE SODIUM 1 TAB TABLET PO SCH (23:20)
[2019-06-21 06:40] LABS: Blood Urea Nitrogen 54 mg/dl (8-23); Calcium 9.5 mg/dl (8.6-10.4); Carbon Dioxide 25 mmol/L (22-30); Chloride 99 mmol/L (96-108); Glomerular Filtration Rate 16; Glucose 112 mg/dL (70-105)
[2019-06-21] MEDS: 0.9 % SODIUM CHLORIDE 10 ML SYRINGE IV SCH ×3 (06:47→21:24)
[2019-06-21] MEDS: INSULIN LISPRO 1 UNIT/0.01 ML UNIT SQ SCH ×4 (07:03→21:29)
[2019-06-21] MEDS: OMEPRAZOLE 20 MG CAPSULE PO SCH ×2 (07:31→17:27)
[2019-06-21] MEDS: POTASSIUM CHLORIDE 20 MEQ TABLET PO SCH (07:31)
[2019-06-21] MEDS: LEVOTHYROXINE 150 MCG TABLET PO SCH (07:31)
--- NOTE | 2019-06-21 07:32 | Nephrology Progress Note ---
Subjective Patient information: Note initiated : 06/21/19 at 7:30 am Patient: Dania Em 79 y/o F admitted on 06/17/19 for SOB, Shingles. Chief Complaint: Shortness of breath Pertinent ROS: Weakness Edema Objective - Vital Signs Vital signs: Vital Signs Temp Pulse Pulse Resp BP BP BP 06/21/19 07:16 98.8 F 20 158/85 06/21/19 07:15 98.8 F 20 158/85 06/21/19 05:18 97.2 F 81 24 H 156/70 06/21/19 04:28 73 28 H 125/55 06/21/19 02:29 76 20 143/70 06/21/19 00:00 97.0 F 06/20/19 23:23 75 32 H 150/70 06/20/19 22:00 73 22 157/60 06/20/19 20:00 98.4 F 72 20 131/60 06/20/19 19:44 24 H 06/20/19 17:51 97.4 F 20 131/69 06/20/19 16:00 97.8 F 16 125/53 06/20/19 14:30 06/20/19 14:00 22 118/50 06/20/19 11:35 98.0 F 22 148/79 06/20/19 10:30 20 06/20/19 10:00 22 153/83 06/20/19 08:38 93 H 16 Pulse Ox 06/21/19 07:16 100 06/21/19 07:15 100 06/21/19 05:18 98 06/21/19 04:28 97 06/21/19 02:29 95 06/21/19 00:00 06/20/19 23:23 93 06/20/19 22:00 96 06/20/19 20:00 97 06/20/19 19:44 97 06/20/19 17:51 93 06/20/19 16:00 93 06/20/19 14:30 92 06/20/19 14:00 92 06/20/19 11:35 91 06/20/19 10:30 94 06/20/19 10:00 98 06/20/19 08:38 Intake and Output 06/20/19 06/21/19 06/21/19 21:59 05:59 13:59 Intake Total 600 240 Output Total 525 775 Balance 75 -535 Intake: Oral 600 240 Output: Urine Catheter Amount 525 775 Other: Meal Dinner Percent of Meal Consumed 50% Feeding Ability Independent Urine Appearance Clear Clear Uretheral (Rivera) Clear Clear Sediment Sediment Urine Color Bright Yellow Bright Yellow Uretheral (Rivera) Bright Yellow Bright Yellow Urine Odor Normal Stool Size Moderate Moderate Stool Color Green Brown Brown Stool Consistency Soft Soft Soft # Bowel Movements 1 # of times incontinent of 0 Bowels Weight 258 lb 12.8 oz Intake & Output: Intake & Output 06/20/19 06/21/19 06/21/19 21:59 05:59 13:59 Intake Total 600 240 Output Total 525 775 Balance 75 -535 Weight 258 lb 12.8 oz Intake: Oral 600 240 Output: Urine Catheter Amount 525 775 Other: Meal Dinner Percent of Meal Consumed 50% Feeding Ability Independent Urine Appearance Clear Clear Uretheral (Rivera) Clear Clear Sediment Sediment Urine Color Bright Yellow Bright Yellow Uretheral (Rivera) Bright Yellow Bright Yellow Urine Odor Normal Stool Size Moderate Moderate Stool Color Green Brown Brown Stool Consistency Soft Soft Soft # Bowel Movements 1 # of times incontinent of 0 Bowels - General Appearance General appearance: fatigue EENT: mucous membranes moist Neck: supple Respiratory: course breath sounds Cardiology: edema Gastrointestinal: no tenderness Integumentary: warm and dry Neurologic: no focal deficit, alert and oriented x3 Musculoskeletal: no deformities Psychiatric: mood/affect appropriate, cooperative - Lab 06/20/19 05:15 06/21/19 05:20 Most recent lab results Calcium 9.5 mg/dl (8.6-10.4) 06/21/19 05:20 Phosphorus 2.7 mg/dL (2.7-4.5) 06/20/19 05:15 Magnesium 1.8 mg/dL (1.6-2.5) 06/20/19 05:15 Assessment and Plan (1) Acute on chronic renal failure Dania Em is a 79-year-old female with hypertension, hyperlipidemia, hypothyroidism, chronic obstructive pulmonary disease, diabetes mellitus type 2, chronic kidney disease stage 4, chronic anemia due to kidney disease and iron deficiency, admitted on 06/17/19. She was admitted initially for GI bleed followed by bowel perforation that required exploratory laparotomy and subsequently PEG tube placement at [facility]. She was transferred after 10 days hospitalization to [facility] for swing bed admission however within 2 hours patient had a massive aspiration episode and was subsequently flown back to [facility] in [place] for critical care. She spent additional 8 days recovering and was discharged home on 06/16/19. She was brought back to ED when her daughter found her gasping for air with gurgling sound after patient attempted to drink water. Initial work-up was consistent with bilateral lower lobes infiltrates consistent with pneumonia along with CHF findings. The patient and her daughter declined transfer to tertiary center. She is DNR. She wants full medical intervention that may include antibiotics, CHF management and blood transfusion. She does not want a GI consult or endoscopy. Both patient and daughter clearly indicated if she starts to bleed or if she continues to deteriorate with worsening respiratory failure they would want to initiate end-of-life care without aggressive intervention. Acute kidney injury on chronic kidney disease stage 4, present on arrival. Fluid retention requiring diuretics. Recent work up: Urinalysis on 05/07/19: Yellow, Hazy, pH 6.0, SG 1.012, protein negative, occult blood negative, leukocyte esterase 250. Urine random total protein/creatinine on 05/07/19: 370 mg/g creatinine. Free [place]/Lambda ratio on 09/17/18: 3.123. CT Abdomen and Pelvis without contrast on 05/28/19: There is moderate bilateral renal atrophy: left kidney is 7 cm in length and the right kidney is 8 cm in length. No focal renal lesions. Progress: Urine output: 1600 ml reported in the past 24 hours. Serum creatinine increased from 2.6 to 2.7 in the past 24 hours; eGFR ~16. Recommendations/Plan: Anticipate no acute hemodialysis need. Avoid NSAIDs, nephrotoxic medications and IV contrast. Monitor BMP and urine output. Status: Acute Priority: High Qualifiers: Acute renal failure type: unspecified Chronic kidney disease stage: stage 4 (severe) Qualified Code(s): N17.9 - Acute kidney failure, unspecified; N18.4 - Chronic kidney disease, stage 4 (severe)
[2019-06-21] MEDS: ASCORBIC ACID 500 MG TABLET PO SCH (08:23)
[2019-06-21] MEDS: TORSEMIDE 10 MG TABLET PO SCH (08:23)
[2019-06-21] MEDS: APIXABAN 2.5 MG TABLET PO SCH ×2 (08:23→21:26)
[2019-06-21] MEDS: FOLIC ACID 1 MG TABLET PO SCH (08:23)
[2019-06-21] MEDS: MULTIVIT,THER IRON,CA,FA & MIN 1 TABLET PO SCH (08:23)
[2019-06-21] MEDS: THIAMINE 100 MG TABLET PO SCH (08:23)
[2019-06-21] MEDS: CALCITRIOL 0.25 MCG CAPSULE PO SCH ×2 (08:23→21:26)
[2019-06-21] MEDS: ALLOPURINOL 100 MG TABLET PO SCH (08:23)
[2019-06-21] MEDS: DILTIAZEM 180 MG CAP.XL.24H PO SCH (08:24)
--- NOTE | 2019-06-21 08:27 | Internal Med Progress Note ---
Medical - PN: Subj Patient information: Note initiated : 06/21/19 at 8:24 am Service Date, if different from initiated Date: [] Patient: Dania Em a 79 y/o F admitted on 06/17/19 for SOBRupertneno. Chief Complaint: [] Interval history: Ms. Em is a 79 year old F with a history of DM type II who spent around 20 days in between different hospitals with what started his upper GI bleed followed by bowel perforation that required exploratory laparotomy and subsequent closure performed by Dr. Alanis at [facility]. She underwent PEG tube placement to anchor stomach to the abdominal wall due to sliding esophageal hernia. She was transferred after 10 days hospitalization to [facility] for swing bed admission however within 2 hours patient had a massive aspiration episode and was subsequently flown back to [facility] in [place] for critical care needs. She spent additional 8 days recovering and was discharged home on 06/16. White count 10.3, INR 10.4, creatinine 3.5 Early this morning her daughter discovered her gasping for air with gurgling sound after patient attempted to drink water. She was about to be hypoxic and was brought into the ER. Initial work-up was consistent with bilateral lower lobes infiltrates consistent with pneumonia along with CHF findings. Hospitalist service was consulted, at the time evaluation patient is accompanied with her daughter Tiffani. She was able to answer most the question. Patient is alert and respond to commands. Both patient and daughter now affirmed that they would not want to be transferred to tertiary center and she would want to be DNR but would want full medical intervention that may include antibiotics/CHF management, they would also want INR reversed but did not want a GI consult or endoscopy. Furthermore they would not want blood transfusion. Both patient and daughter clearly indicated if she starts to bleed or if she continues to deteriorate with worsening respiratory failure they would want to initiate end-of-life care without aggressive intervention. She denies chest pain, lightheadedness, dizziness. She is short of breath and unable to talk in full sentences. Denies fever chills diarrhea 06/18-patient doing well. No overnight events. Diuresing well. Improved shortness of breath. Able to talk in near full sentences. Improved mental status. Blistering rash left arm extensor aspect/palm but no pain. Improving lymphedema. Rivera is draining clear urine. Nephrology on board. Repeat INR pending. White count 9.6, creatinine 3.2 06/19-patient doing remarkably better. Diuresing well over 3000 cc. White count downtrending. Much improved nonlabored breathing. No family at bedside. Patient alert and sitting on chair. No further episodes of aspiration or fever chills or concerns per staff. Hemoglobin 8.1. INR now 1.5 down from 10.4. Started on Eliquis renal dosing. Creatinine improving down to 3.1. Continue aggressive diuresis. Nephrology on board. Continue aggressive PT OT/nutrition support. Anticipate transition to swing bed/SNF in the next 48 to 72 hours if continues to improve clinically 06/20 No overnight events or new complaints. Good urine output. Creatinine im proving. She states she typically has 2 L of oxygen at night has a history of obstructive sleep apnea but is intolerant to CPAP. 06/21 Doing well, feeling better. No overnight events or new complaints. On room air currently while awake. Denies shortness of breath at rest. Occasional cough. Review of Systems: denies headache/fever/chills/nausea/vomiting/chest or abdominal pain/diarrhea. Otherwise see above. - Constitutional Vitals: Vital Signs Temp Pulse Resp BP Pulse Ox 98.8 F 81 20 158/85 100 06/21/19 07:16 06/21/19 05:18 06/21/19 07:16 06/21/19 07:16 06/21/19 07:16 Period Temp Pulse Resp BP Sys/Chavez Pulse Ox Last 24 Hr 97.0 F-98.8 F 72-93 16-32 118-158/50-85 91-100 Intake and Output 06/20/19 06/21/19 06/21/19 21:59 05:59 13:59 Intake Total 600 240 240 Output Total 525 775 Balance 75 -535 240 Weight 117.39 kg Intake & Output: Intake & Output 06/20/19 06/21/19 06/21/19 21:59 05:59 13:59 Intake Total 600 240 240 Output Total 525 775 Balance 75 -535 240 Weight 117.39 kg Intake: Oral 600 240 240 Output: Urine Catheter Amount 525 775 Other: Meal Dinner Percent of Meal Consumed 50% Feeding Ability Independent Urine Appearance Clear Clear Uretheral (Rivera) Clear Clear Sediment Sediment Urine Color Bright Yellow Bright Yellow Uretheral (Rivera) Bright Yellow Bright Yellow Urine Odor Normal Stool Size Moderate Moderate Stool Color Green Brown Brown Stool Consistency Soft Soft Soft # Bowel Movements 1 # of times incontinent of 0 Bowels Exam: General: Alert, Awake, No acute Distress, obese Eyes/N/T: EOMI, Head/Neck: neck supple, CV: RRR, No murmurs, Pulm: Clear b/l, no wheezing/rhonchi/rales Abd: soft, nontender, +BS x4 Ext: no clubbing/cyanosis, 1-2+ b/l LE edema Neuro: Alert, no focal deficits, moves all extremities, Skin: warm/dry Medical - PN: Obj Da - Labs CBC & Chem 7: 06/20/19 05:15 06/21/19 05:20 Labs: Abnormal Lab Results 06/21/19 06/20/19 06/20/19 05:20 05:15 05:15 RBC Hgb Hct MCHC RDW MPV Seg Neutrophils % Lymphocytes % Metamyelocytes % RBC Morphology Hypochromasia Anisocytosis Ovalocytes RBC Fragments PT 20.4 H INR 1.8 H Potassium 3.0 L Anion Gap 18.0 H BUN 54 H 57 H Creatinine 2.7 H 2.6 H Glucose 112 H Uric Acid 15.9 H Lactate Dehydrogenase 349 H 06/20/19 06/19/19 06/19/19 05:15 05:10 05:10 RBC 2.91 L Hgb 8.3 L Hct 27.9 L MCHC 29.7 L RDW 18.3 H MPV 10.6 H Seg Neutrophils % 81 H Lymphocytes % 10 L Metamyelocytes % 1 H RBC Morphology Abnorm A Hypochromasia Few A Anisocytosis 1+ A Ovalocytes RBC Fragments PT 17.8 H INR 1.5 H Potassium Anion Gap 19.0 H BUN 65 H Creatinine 3.1 H Glucose Uric Acid 15.5 H Lactate Dehydrogenase 445 H 06/19/19 06/18/19 05:10 11:28 RBC 2.83 L Hgb 8.1 L Hct 27.0 L MCHC 30.0 L RDW 18.4 H MPV 10.9 H Seg Neutrophils % 79 H Lymphocytes % 14 L Metamyelocytes % RBC Morphology Abnorm A Hypochromasia 1+ A Anisocytosis 1+ A Ovalocytes Few A RBC Fragments Rare A PT 23.2 H INR 2.1 H Potassium Anion Gap BUN Creatinine Glucose Uric Acid Lactate Dehydrogenase Meds: Medications Acetaminophen (Tylenol) 650 mg PO Q4-6HP PRN; Protocol PRN Reason: Per Pain Protocol/Fever > 101 Last Admin: 06/20/19 23:18 Dose: 650 mg Documented by: Albuterol/Ipratropium (Duoneb) 3 ml NEB Q4HP PRN PRN Reason: Shortness Of Breath Last Admin: 06/20/19 08:38 Dose: 3 ml Documented by: Allopurinol (Zyloprim) 100 mg PO QDAY [facility] Last Admin: 06/20/19 09:36 Dose: 100 mg Documented by: Apixaban (Eliquis) 2.5 mg PO BID [facility] Last Admin: 06/20/19 23:18 Dose: 2.5 mg Documented by: Ascorbic Acid (Vitamin C) 500 mg PO DAILY [facility] Last Admin: 06/20/19 09:36 Dose: 500 mg Documented by: Atorvastatin Calcium (Lipitor) 10 mg PO HS [facility] Last Admin: 06/20/19 23:18 Dose: 10 mg Documented by: Bisacodyl (Dulcolax) 10 mg AK Q2-3DAYS PRN PRN Reason: Constipation Calcitriol (Rocaltrol) 0.25 mcg PO BID [facility] Last Admin: 06/20/19 23:17 Dose: 0.25 mcg Documented by: Dextrose (Dextrose 50%) 0 ml IV UD PRN PRN Reason: Hypoglycemia Diagnostic Test (Pha) (Accu-Chek) 1 each FS ACHS [facility] Last Admin: 06/21/19 07:02 Dose: 1 each Documented by: Diltiazem HCl (Cardizem Cd) 360 mg PO DAILY [facility] Last Admin: 06/20/19 09:34 Dose: 360 mg Documented by: Docusate Sodium (Colace) 100 mg PO BID [facility] Last Admin: 06/20/19 23:20 Dose: Not Given Documented by: Folic Acid (Folic Acid) 1 mg PO DAILY [facility] Last Admin: 06/20/19 09:36 Dose: 1 mg Documented by: Glucose (Insta-Glucose) 15 gm PO PRN PRN PRN Reason: Hypoglycemia Acetaminophen (Ofirmev) 650 mg in 65 mls @ 130 mls/hr IV Q6HP PRN; Protocol PRN Reason: Per Pain Protocol/Fever > 101 Magnesium Sulfate (Magnesium Sulfate) 2 gm in 50 mls @ 50 mls/hr IV UD PRN PRN Reason: MG = or < 1.7 Insulin Human Lispro (Humalog) 0 unit SQ ACHS [facility]; Protocol Last Admin: 06/21/19 07:03 Dose: Not Given Documented by: Iron Carb/Multivit/[place]/Folic Acid (Multivitamin W/Minerals) 1 tab PO DAILY [facility] Last Admin: 06/20/19 09:36 Dose: 1 tab Documented by: Levothyroxine Sodium (Synthroid) 150 mcg PO QAMAC [facility] Last Admin: 06/21/19 07:31 Dose: 150 mcg Documented by: Melatonin (Melatonin 3mg Tablet) 3 mg PO HSP PRN PRN Reason: Insomnia Metoprolol Succinate (Toprol Xl) 25 mg PO DAILY [facility] Last Admin: 06/20/19 09:36 Dose: 25 mg Documented by: Omeprazole (Prilosec) 40 mg PO BIDAC [facility] Last Admin: 06/21/19 07:31 Dose: 40 mg Documented by: Ondansetron HCl (Zofran Odt) 4 mg SL Q4-6HP PRN; Protocol PRN Reason: Nausea And Vomiting Ondansetron HCl (Zofran) 4 mg IV Q4-6HP PRN; Protocol PRN Reason: Nausea And Vomiting Epoetin Connor-Epbx [ Retacrit] 10,000 Unit Vial 1 dose SUB-Q .3X/WEEK [facility] Polyethylene Glycol (Miralax) 17 gm PO DAILYP PRN PRN Reason: Constipation Potassium Chloride (Klor-Con) 40 meq PO DAILYP PRN PRN Reason: K+ < 3.5 Last Admin: 06/20/19 10:24 Dose: 40 meq Documented by: Potassium Chloride (Kdur) 40 meq PO QAMCC [facility] Last Admin: 06/21/19 07:31 Dose: 40 meq Documented by: Senna/Docusate Sodium (Senna Plus Tablet) 1 tab PO HS [facility] Last Admin: 06/20/19 23:20 Dose: Not Given Documented by: Sodium Chloride (Saline Flush) 10 ml IV Q8 [facility] Last Admin: 06/21/19 06:47 Dose: 10 ml Documented by: Thiamine HCl (Vitamin B1) 100 mg PO DAILY [facility] Last Admin: 06/20/19 09:35 Dose: 100 mg Documented by: Torsemide (Demadex) 40 mg PO DAILY [facility] Last Admin: 06/20/19 09:33 Dose: 40 mg Documented by: Valacyclovir HCl (Valtrex) 1,000 mg PO DAILY [facility] Last Admin: 06/20/19 09:33 Dose: 1,000 mg Documented by: Medical - PN: A/P - Time Spent With Patient Total time spent is greater than 50% in coordination of care (as documented) at patient's floor/unit and/or counseling patient: - Narrative A/P Narrative: A: *h/o NYHA class III diastolic CHF w/acute decompensation: clinically improving with aggressive diuresis -Echocardiogram on 2019 elevated pulmonary artery pressures/normal EF. -good diuresis *Hypoxic respiratory failure secondary CHF/aspiration pneumonia (wears 2L NC @night): clinically improving -now on room air during day *Aspiration chemical pneumonitis: *BRENNA, intolerant of CPAP: *Vesiculopapular rash left arm possible shingles: *Supratherapeutic INR: reversed with 2.5 mg vitamin K -Now started on Eliquis for CVA prophylaxis, (wild-swinging INR w/Coumadin), echocardiogram no evidence of valvular insufficiency. *Recent exploratory laparotomy: Patient is scheduled to follow-up with surgery Dr. Dougherty in 2-3 weeks at [facility] *Hiatal hernia with PEG tube placement: can be used for feeding as per daughter. However tolerating diet p.o. *PAF: currently rate controlled *Recent upper GI bleed: clinically resolved. s/p upper endoscopy. 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 Continue free water restriction to 1500 cc -continue PO valtrex -continue basal prandial insulin/CC diet -Discharge planning likely SNF/swing bed -pt/ot -ppx: eliquis (warfarin stopped) Full code
[2019-06-21] MEDS: DOCUSATE SODIUM 100 MG CAPSULE PO SCH ×2 (08:30→21:29)
[2019-06-21] MEDS: METOPROLOL SUCCINATE 25 MG TAB.XL.24H PO SCH (08:31)
[2019-06-21] MEDS: valACYclovir 500 MG TABLET PO SCH (08:32)
[2019-06-21] MEDS: IPRATROPIUM/ALBUTEROL 3 ML AMPUL.NEB NEB PRN ×2 (09:43→16:46)
--- NOTE | 2019-06-21 11:56 | Discharge Summary ---
Medical - DS: Prov Patient information: Note initiated : 06/21/19 at 11:54 am Service Date, if different from initiated Date: [] Patient: Dania Em 79 y/o F admitted on 06/17/19 for SOB, Shingles. Chief Complaint: [] Date of admission: 06/17/19 17:20 Discharge date: 06/22/19 Primary care physician: Jg Zacarias Consults: 06/17/19 Consult to Physician [CONS] Stat Comment: Consulting Provider: Cameron Fernandez Reason For Exam: Physician to Consult 06/17/19 18:41 Consult to Physician [CONS] Routine Comment: Consulting Provider: Genny Parish Reason For Exam: Physician to Consult Medical - DS: Meds - Discharge Medications Active and Home Medications: Home Medications Atorvastatin [Lipitor] 10 mg PO HS tab 08/25/17 [Rx Confirmed 06/17/19 Last T aken 05/29/19] Ipratropium/Albuterol [Duoneb] 3 ml NEB Q4HP PRN 05/29/18 [History Confirmed 06/17/19 Last Taken 05/29/19] ascorbic acid (vitamin C) 500 mg capsule 500 mg PO DAILY cap 09/17/18 [History Confirmed 06/17/19 Last Taken 05/29/19] allopurinol 100 mg tablet 100 mg PO QDAY #90 tab 01/05/19 [Rx Confirmed 06/17/19 Last Taken 05/29/19] cyanocobalamin (vitamin B-12) 1,000 mcg/mL injection solution 1,000 mcg IM QMONTH #12 ml 03/31/19 [Rx Confirmed 06/17/19 Last Taken 05/29/19] warfarin 5 mg tablet 5 mg PO QDAY #90 tab 05/25/19 [Rx Confirmed 06/17/19 Last Taken Unknown] Acetaminophen [Tylenol] 650 mg PO Q4HP PRN 06/09/19 [History Confirmed 06/17/19 Last Taken Unknown] Calcitriol [Rocaltrol] 0.25 mcg PO BID 06/09/19 [History Confirmed 06/17/19 Last Taken Unknown] Diltiazem [Cardizem Cd] 360 mg PO DAILY 06/09/19 [History Confirmed 06/17/19 Last Taken Unknown] Epoetin Connor-Epbx [Retacrit] 10,000 unit IJ .3X/WEEK 06/09/19 [History Confirmed 06/17/19 Last Taken Unknown] Ferrous Sulfate 325 mg PO BIDCC 06/09/19 [History Confirmed 06/17/19 Last Taken Unknown] HYDROcodone/ACETAMINOPHEN [Ray 5-325 Tablet] 1 tab PO Q6HP PRN 06/09/19 [History Confirmed 06/17/19 Last Taken Unknown] Levothyroxine Sodium [Synthroid] 150 mcg PO QAMAC 06/09/19 [History Confirmed 06/17/19 Last Taken Unknown] Lidocaine [Lidoderm] 2 patch TOPICAL DAILY@1000 06/09/19 [History Confirmed 06/17/19 Last Taken Unknown] Metoprolol Succinate [Toprol Xl] 25 mg PO DAILY 06/09/19 [History Confirmed 06/17/19 Last Taken Unknown] Multivit,Ther Iron,Ca,FA & Min [Multivitamin W/Minerals] 1 tab PO DAILY 06/09/19 [History Confirmed 06/17/19 Last Taken Unknown] Omeprazole [PriLOSEC] 40 mg PO BIDAC 06/09/19 [History Confirmed 06/17/19 Last Taken Unknown] Potassium Chloride [Kdur] 40 meq PO QAMCC 06/09/19 [History Confirmed 06/17/19 Last Taken Unknown] Torsemide [Demadex] 40 mg PO DAILY 06/09/19 [History Confirmed 06/17/19 Last Taken Unknown] Medical - DS: Hosp Hospital Course: Ms. Em is a 79 year old F with a history of DM type II who spent around 20 days in between different hospitals with what started his upper GI bleed followed by bowel perforation that required exploratory laparotomy and subsequent closure performed by Dr. Alanis at [facility]. She underwent PEG tube placement to anchor stomach to the abdominal wall due to sliding esophageal hernia. She was transferred after 10 days hospitalization to [facility] for swing bed admission however within 2 hours patient had a massive aspiration episode and was subsequently flown back to [facility] in [place] for critical care needs. She spent additional 8 days recovering and was discharged home on 06/16. White count 10.3, INR 10.4, creatinine 3.5 Early this morning her daughter discovered her gasping for air with gurgling sound after patient attempted to drink water. She was about to be hypoxic and was brought into the ER. Initial work-up was consistent with bilateral lower lobes infiltrates consistent with pneumonia along with CHF findings. Hospitalist service was consulted, at the time evaluation patient is accompanied with her daughter Tiffani. She was able to answer most the question. Patient is alert and respond to commands. Both patient and daughter now affirmed that they would not want to be transferred to tertiary center and she would want to be DNR but would want full medical intervention that may include antibiotics/CHF management, they would also want INR reversed but did not want a GI consult or endoscopy. Furthermore they would not want blood transfusion. Both patient and daughter clearly indicated if she starts to bleed or if she continues to deteriorate with worsening respiratory failure they would want to initiate end-of-life care without aggressive intervention. She denies chest pain, lightheadedness, dizziness. She is short of breath and unable to talk in full sentences. Denies fever chills diarrhea 06/18-patient doing well. No overnight events. Diuresing well. Improved shortness of breath. Able to talk in near full sentences. Improved mental status. Blistering rash left arm extensor aspect/palm but no pain. Improving lymphedema. Rivera is draining clear urine. Nephrology on board. Repeat INR pending. White count 9.6, creatinine 3.2 06/19-patient doing remarkably better. Diuresing well over 3000 cc. White count downtrending. Much improved nonlabored breathing. No family at bedside. Patient alert and sitting on chair. No further episodes of aspiration or fever chills or concerns per staff. Hemoglobin 8.1. INR now 1.5 down from 10.4. Started on Eliquis renal dosing. Creatinine improving down to 3.1. Continue aggressive diuresis. Nephrology on board. Continue aggressive PT OT/nutrition support. Anticipate transition to swing bed/SNF in the next 48 to 72 hours if continues to improve clinically 06/20 No overnight events or new complaints. Good urine output. Creatinine improving. She states she typically has 2 L of oxygen at night has a history of obstructive sleep apnea but is intolerant to CPAP. 06/21 Doing well, feeling better. No overnight events or new complaints. On room air currently while awake. Denies shortness of breath at rest. Occasional cough. Discharge diagnosis: Chronic CHF hypoxic respite failure aspiration pneumonitis Secondary discharge diagnosis: Recent exploratory laparotomy with hiatal hernia and PEG tube placement paroxysmal H fibrillation recent upper GI bleed diabetes chronic kidney disease with acute component chronic anemia for sleep apnea shingles - Time Spent with Patient Total time spent providing and/or coordinating discharge services: Greater than 30 minutes Medical - DS: Exam - Constitutional Vitals: Vital Signs Temp Pulse Pulse Resp BP BP BP 06/21/19 10:00 97.3 F 24 H 158/66 06/21/19 09:59 06/21/19 09:43 86 16 06/21/19 07:16 98.8 F 20 158/85 06/21/19 07:15 98.8 F 20 158/85 06/21/19 07:00 06/21/19 05:18 97.2 F 81 24 H 156/70 06/21/19 04:28 73 28 H 125/55 06/21/19 02:29 76 20 143/70 06/21/19 00:00 97.0 F 06/20/19 23:23 75 32 H 150/70 06/20/19 22:00 73 22 157/60 06/20/19 20:00 98.4 F 72 20 131/60 06/20/19 19:44 24 H 06/20/19 17:51 97.4 F 20 131/69 06/20/19 16:00 97.8 F 16 125/53 06/20/19 14:30 06/20/19 14:00 22 118/50 Pulse Ox 06/21/19 10:00 94 06/21/19 09:59 98 06/21/19 09:43 06/21/19 07:16 100 06/21/19 07:15 100 06/21/19 07:00 99 06/21/19 05:18 98 06/21/19 04:28 97 06/21/19 02:29 95 06/21/19 00:00 06/20/19 23:23 93 06/20/19 22:00 96 06/20/19 20:00 97 06/20/19 19:44 97 06/20/19 17:51 93 06/20/19 16:00 93 06/20/19 14:30 92 06/20/19 14:00 92 Intake and Output 06/20/19 06/21/19 06/21/19 21:59 05:59 13:59 Intake Total 600 240 480 Output Total 525 775 200 Balance 75 -535 280 Intake: Oral 600 240 480 Output: Urine Catheter Amount 525 775 200 Other: Meal Dinner Breakfast Percent of Meal Consumed 50% 25% Feeding Ability Independent Needs Supervision Urine Appearance Clear Clear Sediment Uretheral (Rivera) Clear Clear Clear Sediment Sediment Urine Color Bright Yellow Bright Yellow Bright Yellow Uretheral (Rivera) Bright Yellow Bright Yellow Bright Yellow Urine Odor Normal Normal Stool Size Moderate Moderate Stool Color Green Brown Brown Stool Consistency Soft Soft Soft # Bowel Movements 1 # of times incontinent of 0 Bowels Weight 117.39 kg Medical - DS: Data Labs on day of discharge: Labs from last 24 hours 06/21/19 05:20 Sodium 142 Potassium 4.1 Chloride 99 Carbon Dioxide 25 Anion Gap 18.0 H BUN 54 H Creatinine 2.7 H GFR Calculation 16 Glucose 112 H Calcium 9.5 Medical - DS: A/P - Patient/Caregiver Discharge Instructions Activity: increase activity as tolerated Diet: Consistent Carbohydrate - Follow up Plan Follow up with: Jg Zacarias DO [Primary Care Provider] - Genny Parish MD [Physician] - Disposition: er As Swing Bed ([facility]) Prognosis: Undetermined Rehab Potential: Fair Overall status at discharge: patient is progressing back to baseline
[2019-06-21] MEDS ORDERED: PATIENTS OWN MEDICATION 1 DOSE MISCELL SUB-Q SCH (14:15)
--- NOTE | 2019-06-21 14:40 | Cat Scan Report ---
CLINICAL INFORMATION: Chest pain evaluated for possible hernia COMPARISON: 05/28/2019 and 05/31/[address] TECHNIQUE: 0.625 mm helical slices were obtained from the mid heart through the subtrochanteric regions. Following reconstruction, 2.5 mm sagittal, coronal and axial reformatted images were processed and reviewed at bone and soft tissue windows.The exam was performed using radiation dose optimization techniques including, but not limited to, automated exposure control, adjustment of the mA and/or kV according to patient size and use of iterative reconstruction technique. FINDINGS: Moderate right and small left pleural effusions are unchanged from the most recent CT three weeks prior. Atelectasis of the medial and posterior basilar segments of the right lower lobe and subsegmental atelectasis in the posterior medial left lower lobe in the as before. Moderate hiatal hernia consisting of the gastric fundus and the proximal half of the body is actually decreased in size. Heart is moderately enlarged - pacer leads in stable satisfactory position. Right diaphragm mildly elevated. Abdominal images show the noncontrasted liver to be unremarkable. A 20 mm stone is again seen in the gallbladder fundus. Gallbladder is, otherwise, normal - no evidence of wall thickening. Common bile duct is normal caliber: 6 mm. There is marked pancreatic atrophy with near complete fat replacement of the parenchyma - as previously seen. Mild bilateral renal atrophy is stable - the left kidney is 8.9 cm in length and the right kidney is 8.6 cm in length. No focal renal lesions. 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 The spleen, adrenal glands and aorta are normal in size, configuration and attenuation without focal lesion. Pelvic images show urinary bladder is unremarkable. Hysterectomy and oophorectomy changes noted. A 5 cm diverticulum projects from the superior wall of the transverse duodenum. The remainder of the small and large bowel are normal. The appendix is surgically absent. PEG tube enters through the anterior wall the gastric antrum in stable position. Bone windows show moderate degenerative change of the lumbar spine and both hips as previously seen IMPRESSION: 1. Moderate right and small left pleural effusions. Moderate compressive atelectasis in the inferior right lower lobe and subsegmental atelectasis left lower lobe. No change from CT three weeks ago 2. Solitary 2 cm stone in the gallbladder. Gallbladder and bile ducts are, otherwise, normal. 3. Severe pancreatic atrophy with parenchymal fat replacement 4. Mild bilateral renal atrophy. Malrotated right kidney 5. 5 cm diverticula - transverse duodenum. 6. Moderate hiatal hernia decreased from the previous exam. Only the gastric fundus and proximal body is contained within the hernia sac. Interpreted and Authenticated by: Jg Perry 06/21/19
[2019-06-21] MEDS: ACETAMINOPHEN 325 MG TABLET PO PRN (21:26)
[2019-06-21] MEDS: ATORVASTATIN 20 MG TABLET PO SCH (21:26)
[2019-06-21] MEDS: SENNOSIDES/DOCUSATE SODIUM 1 TAB TABLET PO SCH (21:29)
[2019-06-22] MEDS: ACETAMINOPHEN 325 MG TABLET PO PRN ×2 (01:57→09:29)
[2019-06-22] MEDS: 0.9 % SODIUM CHLORIDE 10 ML SYRINGE IV SCH ×3 (04:31→16:30)
[2019-06-22] MEDS: IPRATROPIUM/ALBUTEROL 3 ML AMPUL.NEB NEB PRN (04:31)
[2019-06-22] MEDS: OMEPRAZOLE 20 MG CAPSULE PO SCH ×2 (07:43→16:30)
[2019-06-22] MEDS: INSULIN LISPRO 1 UNIT/0.01 ML UNIT SQ SCH ×2 (07:43→12:00)
[2019-06-22] MEDS: POTASSIUM CHLORIDE 20 MEQ TABLET PO SCH (07:44)
[2019-06-22] MEDS: LEVOTHYROXINE 150 MCG TABLET PO SCH (07:44)
--- NOTE | 2019-06-22 09:16 | Internal Med Progress Note ---
Medical - PN: Subj Patient information: Note initiated : 06/22/19 at 9:15 am Service Date, if different from initiated Date: [] Patient: Dania Em a 79 y/o F admitted on 06/17/19 for SOBRupertneno. Chief Complaint: [] Interval history: Ms. Em is a 79 year old F with a history of DM type II who spent around 20 days in between different hospitals with what started his upper GI bleed followed by bowel perforation that required exploratory laparotomy and subsequent closure performed by Dr. Alanis at [place]. She underwent PEG tube placement to anchor stomach to the abdominal wall due to sliding esophageal hernia. She was transferred after 10 days hospitalization to [facility] for swing bed admission however within 2 hours patient had a massive aspiration episode and was subsequently flown back to [facility] in [place] for critical care needs. She spent additional 8 days recovering and was discharged home on 06/16. White count 10.3, INR 10.4, creatinine 3.5 Early this morning her daughter discovered her gasping for air with gurgling sound after patient attempted to drink water. She was about to be hypoxic and was brought into the ER. Initial work-up was consistent with bilateral lower lobes infiltrates consistent with pneumonia along with CHF findings. Hospitalist service was consulted, at the time evaluation patient is accompanied with her daughter Tiffani. She was able to answer most the question. Patient is alert and respond to commands. Both patient and daughter now affirmed that they would not want to be transferred to tertiary center and she would want to be DNR but would want full medical intervention that may include antibiotics/CHF management, they would also want INR reversed but did not want a GI consult or endoscopy. Furthermore they would not want blood transfusion. Both patient and daughter clearly indicated if she starts to bleed or if she continues to deteriorate with worsening respiratory failure they would want to initiate end-of-life care without aggressive intervention. She denies chest pain, lightheadedness, dizziness. She is short of breath and unable to talk in full sentences. Denies fever chills diarrhea 06/18-patient doing well. No overnight events. Diuresing well. Improved shortness of breath. Able to talk in near full sentences. Improved mental status. Blistering rash left arm extensor aspect/palm but no pain. Improving lymphedema. Rivera is draining clear urine. Nephrology on board. Repeat INR pending. White count 9.6, creatinine 3.2 06/19-patient doing remarkably better. Diuresing well over 3000 cc. White count downtrending. Much improved nonlabored breathing. No family at bedside. Patient alert and sitting on chair. No further episodes of aspiration or fever chills or concerns per staff. Hemoglobin 8.1. INR now 1.5 down from 10.4. Started on Eliquis renal dosing. Creatinine improving down to 3.1. Continue aggressive diuresis. Nephrology on board. Continue aggressive PT OT/nutrition support. Anticipate transition to swing bed/SNF in the next 48 to 72 hours if continues to improve clinically 06/20 No overnight events or new complaints. Good urine output. Creatinine im proving. She states she typically has 2 L of oxygen at night has a history of obstructive sleep apnea but is intolerant to CPAP. 06/21 Doing well, feeling better. No overnight events or new complaints. On room air currently while awake. Denies shortness of breath at rest. Occasional cough. 06/22 Continue to feel better. Doing well. No new complaints. Likely transition to swing bed status today. Review of Systems: denies headache/fever/chills/nausea/vomiting/chest or abdominal pain/diarrhea. Otherwise see above. - Constitutional Vitals: Vital Signs Temp Pulse Resp BP Pulse Ox 96.0 F L 80 20 134/46 94 06/22/19 04:25 06/22/19 04:25 06/22/19 07:33 06/22/19 07:33 06/22/19 07:33 Period Temp Pulse Resp BP Sys/Chavez Pulse Ox Last 24 Hr 96.0 F-98.3 F 66-86 16-30 118-158/46-75 90-98 Intake and Output 06/21/19 06/22/19 06/22/19 21:59 05:59 13:59 Intake Total 420 Output Total 525 325 Balance -105 -325 Weight 117.344 kg Intake & Output: Intake & Output 06/21/19 06/22/19 06/22/19 21:59 05:59 13:59 Intake Total 420 Output Total 525 325 Balance -105 -325 Weight 117.344 kg Intake: Oral 420 Output: Urine Catheter Amount 525 325 Other: Urine Appearance Clear Clear Sediment Uretheral (Rivera) Clear Clear Sediment Sediment Urine Color Bright Yellow Bright Yellow Uretheral (Rivera) Bright Yellow Bright Yellow Urine Odor Normal Stool Size Moderate Moderate Stool Color Brown Brown Stool Consistency Soft Soft # Bowel Movements 1 Exam: General: Alert, Awake, No acute Distress, obese Eyes/N/T: EOMI, Head/Neck: neck supple, CV: RRR, No murmurs, Pulm: Clear b/l, no wheezing/rhonchi/rales Abd: soft, nontender, +BS x4 Ext: no clubbing/cyanosis, 1-2+ b/l LE edema Neuro: Alert, no focal deficits, moves all extremities, Skin: warm/dry Medical - PN: Obj Da - Labs CBC & Chem 7: 06/20/19 05:15 06/21/19 05:20 Labs: Abnormal Lab Results 06/21/19 06/20/19 06/20/19 05:20 05:15 05:15 RBC Hgb Hct MCHC RDW MPV Seg Neutrophils % Lymphocytes % Metamyelocytes % RBC Morphology Hypochromasia Anisocytosis PT 20.4 H INR 1.8 H Potassium 3.0 L Anion Gap 18.0 H BUN 54 H 57 H Creatinine 2.7 H 2.6 H Glucose 112 H Uric Acid 15.9 H Lactate Dehydrogenase 349 H 06/20/19 05:15 RBC 2.91 L Hgb 8.3 L Hct 27.9 L MCHC 29.7 L RDW 18.3 H MPV 10.6 H Seg Neutrophils % 81 H Lymphocytes % 10 L Metamyelocytes % 1 H RBC Morphology Abnorm A Hypochromasia Few A Anisocytosis 1+ A PT INR Potassium Anion Gap BUN Creatinine Glucose Uric Acid Lactate Dehydrogenase Meds: Medications Acetaminophen (Tylenol) 650 mg PO Q4-6HP PRN; Protocol PRN Reason: Per Pain Protocol/Fever > 101 Last Admin: 06/22/19 01:57 Dose: 650 mg Documented by: Albuterol/Ipratropium (Duoneb) 3 ml NEB Q4HP PRN PRN Reason: Shortness Of Breath Last Admin: 06/22/19 04:31 Dose: 3 ml Documented by: Allopurinol (Zyloprim) 100 mg PO QDAY [facility] Last Admin: 06/21/19 08:23 Dose: 100 mg Documented by: Apixaban (Eliquis) 2.5 mg PO BID [facility] Last Admin: 06/21/19 21:26 Dose: 2.5 mg Documented by: Ascorbic Acid (Vitamin C) 500 mg PO DAILY [facility] Last Admin: 06/21/19 08:23 Dose: 500 mg Documented by: Atorvastatin Calcium (Lipitor) 10 mg PO HS [facility] Last Admin: 06/21/19 21:26 Dose: 10 mg Documented by: Bisacodyl (Dulcolax) 10 mg IN Q2-3DAYS PRN PRN Reason: Constipation Calcitriol (Rocaltrol) 0.25 mcg PO BID [facility] Last Admin: 06/21/19 21:26 Dose: 0.25 mcg Documented by: Dextrose (Dextrose 50%) 0 ml IV UD PRN PRN Reason: Hypoglycemia Diagnostic Test (Pha) (Accu-Chek) 1 each FS [facility] Last Admin: 06/22/19 07:40 Dose: 1 each Documented by: Diltiazem HCl (Cardizem Cd) 360 mg PO DAILY [facility] Last Admin: 06/21/19 08:24 Dose: 360 mg Documented by: Docusate Sodium (Colace) 100 mg PO BID [facility] Last Admin: 06/21/19 21:29 Dose: Not Given Documented by: Folic Acid (Folic Acid) 1 mg PO DAILY [facility] Last Admin: 06/21/19 08:23 Dose: 1 mg Documented by: Glucose (Insta-Glucose) 15 gm PO PRN PRN PRN Reason: Hypoglycemia Acetaminophen (Ofirmev) 650 mg in 65 mls @ 130 mls/hr IV Q6HP PRN; Protocol PRN Reason: Per Pain Protocol/Fever > 101 Magnesium Sulfate (Magnesium Sulfate) 2 gm in 50 mls @ 50 mls/hr IV UD PRN PRN Reason: MG = or < 1.7 Insulin Human Lispro (Humalog) 0 unit SQ [facility]; Protocol Last Admin: 06/22/19 07:43 Dose: Not Given Documented by: Iron Carb/Multivit/[place]/Folic Acid (Multivitamin W/Minerals) 1 tab PO DAILY [facility] Last Admin: 06/21/19 08:23 Dose: 1 tab Documented by: Levothyroxine Sodium (Synthroid) 150 mcg PO QAMAC [facility] Last Admin: 06/22/19 07:44 Dose: 150 mcg Documented by: Melatonin (Melatonin 3mg Tablet) 3 mg PO HSP PRN PRN Reason: Insomnia Metoprolol Succinate (Toprol Xl) 25 mg PO DAILY [facility] Last Admin: 06/21/19 08:31 Dose: 25 mg Documented by: Omeprazole (Prilosec) 40 mg PO BIDAC [facility] Last Admin: 06/22/19 07:43 Dose: 40 mg Documented by: Ondansetron HCl (Zofran Odt) 4 mg SL Q4-6HP PRN; Protocol PRN Reason: Nausea And Vomiting Ondansetron HCl (Zofran) 4 mg IV Q4-6HP PRN; Protocol PRN Reason: Nausea And Vomiting Patient Own Medication () 10,000 dose SUB-Q WEEKLY [facility] Polyethylene Glycol (Miralax) 17 gm PO DAILYP PRN PRN Reason: Constipation Potassium Chloride (Klor-Con) 40 meq PO DAILYP PRN PRN Reason: K+ < 3.5 Last Admin: 06/20/19 10:24 Dose: 40 meq Documented by: Potassium Chloride (Kdur) 40 meq PO QAMCC [facility] Last Admin: 06/22/19 07:44 Dose: 40 meq Documented by: Senna/Docusate Sodium (Senna Plus Tablet) 1 tab PO HS [facility] Last Admin: 06/21/19 21:29 Dose: Not Given Documented by: Sodium Chloride (Saline Flush) 10 ml IV Q8 [facility] Last Admin: 06/22/19 07:45 Dose: 10 ml Documented by: Thiamine HCl (Vitamin B1) 100 mg PO DAILY [facility] Last Admin: 06/21/19 08:23 Dose: 100 mg Documented by: Torsemide (Demadex) 40 mg PO DAILY [facility] Last Admin: 06/21/19 08:23 Dose: 40 mg Documented by: Valacyclovir HCl (Valtrex) 1,000 mg PO DAILY [facility] Last Admin: 06/21/19 08:32 Dose: 1,000 mg Documented by: Medical - PN: A/P - Time Spent With Patient Total time spent is greater than 50% in coordination of care (as documented) at patient's floor/unit and/or counseling patient: - Narrative A/P Narrative: A: *h/o NYHA class III diastolic CHF w/acute decompensation: clinically improving with aggressive diuresis -Echocardiogram on 2019 elevated pulmonary artery pressures/normal EF. -good diuresis *Hypoxic respiratory failure secondary CHF/aspiration pneumonia (wears 2L NC @night): clinically improving -now on room air during day *Aspiration chemical pneumonitis: *BRENNA, intolerant of CPAP: *Vesiculopapular rash left arm possible shingles: *Supratherapeutic INR: reversed with 2.5 mg vitamin K -Now started on Eliquis for CVA prophylaxis, (wild-swinging INR w/Coumadin), echocardiogram no evidence of valvular insufficiency. *Recent exploratory laparotomy: Patient is scheduled to follow-up with surgery Dr. Dougherty in 2-3 weeks at [facility] *Hiatal hernia with PEG tube placement: can be used for feeding as per daughter. However tolerating diet p.o. *PAF: currently rate controlled *Recent upper GI bleed: clinically resolved. s/p upper endoscopy. 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 Continue free water restriction to 1500 cc -continue PO valtrex -continue basal prandial insulin/CC diet -Discharge planning likely SNF/swing bed -pt/ot -to swing bed -ppx: eliquis (warfarin stopped) Full code
[2019-06-22] MEDS: MULTIVIT,THER IRON,CA,FA & MIN 1 TABLET PO SCH (09:26)
[2019-06-22] MEDS: ALLOPURINOL 100 MG TABLET PO SCH (09:26)
[2019-06-22] MEDS: METOPROLOL SUCCINATE 25 MG TAB.XL.24H PO SCH (09:26)
[2019-06-22] MEDS: DILTIAZEM 180 MG CAP.XL.24H PO SCH (09:26)
[2019-06-22] MEDS: CALCITRIOL 0.25 MCG CAPSULE PO SCH (09:26)
[2019-06-22] MEDS: THIAMINE 100 MG TABLET PO SCH (09:27)
[2019-06-22] MEDS: TORSEMIDE 10 MG TABLET PO SCH (09:27)
[2019-06-22] MEDS: DOCUSATE SODIUM 100 MG CAPSULE PO SCH (09:27)
[2019-06-22] MEDS: FOLIC ACID 1 MG TABLET PO SCH (09:27)
[2019-06-22] MEDS: APIXABAN 2.5 MG TABLET PO SCH (09:27)
[2019-06-22] MEDS: valACYclovir 500 MG TABLET PO SCH (09:28)
[2019-06-22] MEDS: ASCORBIC ACID 500 MG TABLET PO SCH (09:29)
== END 2019-06-22 16:00 | disposition swing bed (61) | DRG 291 ==
LOC: ED 10:06 → ICU 17:20 → SUATTDRO 17:20
PROVIDERS: ADMIT Internal Medicine; ATTEND Internal Medicine Nephrology